=== PATIENT | male | born 1935 | race Caucasian/White ===

== ENCOUNTER 2016-03-24 17:35 | Emergency (ER) | payer MEDICARE, OTHER ==
[2016-03-24 18:42] VITALS: BMI 17.7
--- NOTE | 2016-03-24 19:42 | PDOC ---
History of Present Illness - General History Source: Patient <Yaniv Farley - Last Filed: 03/25/16 00:00> - General History Source: Patient, Spouse Exam Limitations: Language Barrier - History of Present Illness Initial Comments: 03/24/16 20:04 The patient is an 81 year old male with a significant past medical history asthma and enlarged prostate, who presents to the emergency department complaining of difficulty passing stool for one day. The patient reports no changes in appetite. The patient denies any associated abdominal pain, nausea, vomiting, diarrhea, melena, or hematochezia. The patient denies any chest pain, palpitations, diaphoresis, or shortness of breath. The patient reports no dysuria, hematuria, frequency, or urgency. The patient reports a nonproductive cough, but denies any headache, fever, chills, sore throat, or dizziness. The patient denies any recent travel or sick contacts. Allergies: Fish derived/ shellfish Past Surgical History: None reported. Social History: Non-smoker. Denies alcohol or drug use. PCP: Dr. Afia Ingram <Dewayne Herrera - Last Filed: 03/25/16 00:31> - General Chief Complaint: Pain, Acute Stated Complaint: PAIN Time Seen by Provider: 03/24/16 18:28 Past History - Past Medical History Asthma: Yes Suicide Attempt (Hx): No - Psycho/Social/Smoking Cessation Hx Anxiety: No Suicidal Ideation: No Smoking Status: No Smoking History: Never smoked Number of Cigarettes Smoked Daily: 0 Hx Alcohol Use: No Drug/Substance Use Hx: No <Yaniv Farley - Last Filed: 03/25/16 00:00> <Dewayne Herrera - Last Filed: 03/25/16 00:31> - Past Medical History Allergies/Adverse Reactions: Allergies Allergy/AdvReac Type Severity Reaction Status Date / Time fish derived [Fish derived] Allergy Verified 03/24/16 18:29 Shellfish Allergy Verified 03/24/16 18:29 Home Medications: Ambulatory Orders Cetirizine HCl [Zyrtec] 10 mg PO DAILY PRN #0 tablet 03/17/13 Oseltamivir Phosphate [Tamiflu] 75 mg PO BID #10 capsule 03/17/13 Tiotropium [place] [Spiriva -] 18 mcg IH BID 03/17/13 Polyethylene Glycol 3350 [Miralax (For Daily Use) -] 17 gm PO BID #1 bottle Review of Systems - Review of Systems Able to Perform ROS?: Yes Comments:: 03/24/16 20:06 CONSTITUTIONAL: Absent: fever, no chills, no fatigue EYES: Absent: visual changes ENT: Absent: ear pain, no sore throat CARDIOVASCULAR: Absent: chest pain, no palpitations RESPIRATORY: Present: +cough Absent: no SOB GI: Present: +constipation Absent: abdominal pain, no nausea, no vomiting, no diarrhea GENITOURINARY: Absent: dysuria, no frequency, no hematuria MUSKULOSKELETAL: Absent: back pain, no arthralgia, no myalgia SKIN: Absent: rash NEURO: Absent: headache <Dewayne Herrera - Last Filed: 03/25/16 00:31> *Physical Exam - Vital Signs Last Vital Signs Temp Pulse Resp BP Pulse Ox 97.8 F 88 16 99/48 98 03/24/16 18:30 03/24/16 18:30 03/24/16 18:30 03/24/16 18:30 03/24/16 18:30 <Yaniv Farley - Last Filed: 03/25/16 00:00> - Vital Signs Last Vital Signs Temp Pulse Resp BP Pulse Ox 97.8 F 88 16 99/48 98 03/24/16 18:30 03/24/16 18:30 03/24/16 18:30 03/24/16 18:30 03/24/16 18:30 - Physical Exam Comments: 03/24/16 20:09 GENERAL: Well-appearing, well-nourished. No apparent distress. HEENT: Normocephalic, atraumatic. PERRL, EOM intact. CARDIOVASCULAR: Normal S1, S2. Regular rate and rhythm. PULMONARY: Clear to auscultation bilaterally. ABDOMEN: Soft, non-distended, non-tender. EXTREMITIES: Normal ROM in all four extremities. No gross deformities. SKIN: Warm, dry. No rash NEUROLOGICAL: No focal neurological deficits. <Dewayne Herrera - Last Filed: 03/25/16 00:31> ED Treatment Course - LABORATORY CBC & Chemistry Diagram: 03/24/16 20:10 02/15/17 20:10 <Yaniv Farley - Last Filed: 03/25/16 00:00> - LABORATORY CBC & Chemistry Diagram: 03/24/16 20:10 03/24/16 20:10 - RADIOLOGY Radiograph Interpretation: 03/25/16 00:22 EXAM: CXR INTERPRETED BY: Dr. Hough REVIEWED BY: Dr. Farley IMPRESSION: Extensive chronic interstitial lung disease with no acute pathology or significant change. EXAM: Abdomen X-Ray INTERPRETED BY: Dr. Hough REVIEWED BY: Dr. Farley IMPRESSION: Fecal retention, no acute pathology. <Dewayne Herrera - Last Filed: 03/25/16 00:31> Medical Decision Making - Medical Decision Making 03/25/16 00:05 Dr. Farley: The scribe's documentation has been prepared under my direction and personally reviewed by me in its entirery. I confirm that the note above accurately reflects all work, treatment, procedures, and medical decision making performed by me. <Yaniv Farley - Last Filed: 03/25/16 00:00> *DC/Admit/Observation/Transfer - Discharge Dispostion Admit: No <Yaniv Farley - Last Filed: 03/25/16 00:00> - Attestations Scribe Attestion: 03/24/16 20:07 Documentation prepared by Dewayne Herrera, acting as medical information officer for Yaniv Farley DO. <Dewayne Herrera - Last Filed: 03/25/16 00:31> Diagnosis at time of Disposition: Constipation Qualifiers: Constipation type: unspecified constipation type Qualified Code(s): K59.00 - Constipation, unspecified - Discharge Dispostion Disposition: HOME Condition at time of disposition: Good - Prescriptions Prescriptions: Polyethylene Glycol 3350 [Miralax (For Daily Use) -] 17 gm PO BID #1 bottle - Referrals Referrals: Afia Piper MD [Primary Care Provider] - - Patient Instructions Printed Discharge Instructions: DI for Constipation, Increased Dietary Fiber May Improve Constipation Conditions With Pelvic Milo Print Language: UZBEK
[2016-03-24] MEDS ORDERED: SODIUM PHOSPHATE/NA BIPHOS 133 ML ENEMA PR ONE (19:49)
[2016-03-24] MEDS ORDERED: SODIUM CHLORIDE 1,000 ML IV SCH (20:15)
[2016-03-24 20:21] LABS: BASOPHIL 0.7 % (0-2.0); EOSINOPHIL 0.2 % (0-4.5); MCH 24.9 pg (25.7-33.7); MCHC 31.7 g/dl (32.0-35.9); MEAN CELL VOLUME 78.7 fl (80-96); MEAN PLT VOLUME 6.6 fl (7.5-11.1); NEUTROPHILS 86.9 % (42.8-82.8); PLATELET COUNT 469 K/MM3 (134-434); RDW 18.9 % (11.9-15.9); WHITE BLOOD COUNT 15.3 K/mm3 (4.0-10.0)
[2016-03-24 21:20] LABS: ALBUMIN 2.5 g/dl (3.4-5.0); ANION GAP 8 (8-16); BILIRUBIN,TOTAL 0.2 mg/dL (0.2-1.0); CALCIUM 8.5 mg/dL (8.5-10.1); CO2 27 mmol/L (21-32); CREATININE 0.9 mg/dL (0.7-1.3); GLUCOSE,RANDOM 101 mg/dL (74-106); SGOT/AST 14 U/L (15-37); SGPT/ALT 10 U/L (12-78); TOT PROT 9.2 g/dl (6.4-8.2)
[2016-03-24 21:21] LABS: ALK PHOS 145 U/L (45-117)
[2016-03-24 23:52] LABS: URINE APPEARANCE SLCLOUDY; URINE BILIRUBIN NEGATIVE (NEGATIVE); URINE BLOOD NEGATIVE (NEGATIVE); URINE COLOR YELLOW; URINE GLUCOSE (UA) NEGATIVE (NEGATIVE); URINE KETONE NEGATIVE (NEGATIVE); URINE LEUK ESTERASE NEGATIVE (NEGATIVE); URINE NITRITE NEGATIVE (NEGATIVE); URINE PROTEIN NEGATIVE (NEGATIVE); URINE UROBILINOGEN NEGATIVE E.U./dl (0.2-1.0)
[2016-03-24] MEDS ORDERED: LACTULOSE 20 GM/30 ML UDC (FOR ORAL USE ONLY) PO ONE (23:57)
[2016-03-25 00:13] VITALS: BP 94/41; PULSE 62; TEMP 98.2
[2016-03-25] MEDS ORDERED: LACTULOSE 20 GM/30 ML UDC (FOR ORAL USE ONLY) ONE (00:16)
[2016-03-25 12:33] LABS: TROPONIN I < 0.02 ng/ml (0.00-0.05)
== END 2016-03-25 00:18 | disposition home or self-care (01) ==
LOC: JER 17:35
PROC: 3E033NZ Introduction of Analgesics, Hypnotics, Sedatives into Peripheral Vein, Percutaneous Approach (ICD-10-PCS; principal; 2016-03-24)
PROC: 3E0333Z Introduction of Anti-inflammatory into Peripheral Vein, Percutaneous Approach (ICD-10-PCS; 2016-03-24)
DX: R07.89 Other chest pain (principal); F17.210 Nicotine dependence, cigarettes, uncomplicated
CPT/HCPCS: 36415; 71020-TC; 74020-TC; 80053; 81003; 82550; 83690; 84484; 85025; 86850; 86870; 86900; 86901; 99282-25

== ENCOUNTER 2016-04-28 19:19 | Emergency (ER) | payer MEDICARE, OTHER ==
[2016-04-28 20:02] VITALS: TEMP 98.4; BMI 15.0
--- NOTE | 2016-04-28 20:42 | PDOC ---
History of Present Illness - General History Source: Patient, Family Exam Limitations: No Limitations - History of Present Illness Initial Comments: 04/28/16 21:38 The patient is a 81 year old male presenting with family, with a significant past medical history of asthma and enlarged prostate, who presents to the emergency department with an inability to urinate and constipation. The daughter states that the patient was able to urinate a small amount yesterday. The daughter states that the patient is non compliant with his medications and has been refusing to eat much during the past few days as well. Ever since coming back from [place] last year the patient has been "depressed". The patient denies chest pain, shortness of breath, headache and dizziness. Denies fever, chills, nausea, vomit, diarrhea and constipation. Denies dysuria, frequency, urgency and hematuria. Allergies: Shellfish and penicillin Past surgical history: None reported Social history: No alcohol, tobacco or drug use reported PMD - Dr. Afia Piper <Yaniv Andrade - Last Filed: 04/28/16 21:38> <Jamari Giraldo - Last Filed: 04/29/16 01:18> - General Chief Complaint: Urinary Problem Stated Complaint: CONSTIPATION/UNABLE TO URINATE. Time Seen by Provider: 04/28/16 20:04 Past History <Yaniv Andrade - Last Filed: 04/28/16 21:38> - Past Medical History Asthma: Yes Suicide Attempt (Hx): No - Psycho/Social/Smoking Cessation Hx Anxiety: No Suicidal Ideation: No Smoking Status: No Smoking History: Never smoked Have you smoked in the past 12 months: No Number of Cigarettes Smoked Daily: 0 Information on smoking cessation initiated: No Hx Alcohol Use: No Drug/Substance Use Hx: No Substance Use Type: None <Jamari Giraldo - Last Filed: 04/29/16 01:18> - Past Medical History Allergies/Adverse Reactions: Allergies Allergy/AdvReac Type Severity Reaction Status Date / Time fish derived [Fish derived] Allergy Verified 04/28/16 20:02 Shellfish Allergy Verified 04/28/16 20:02 Home Medications: Ambulatory Orders Tiotropium [place] [Spiriva -] 18 mcg IH BID 03/17/13 Review of Systems - Review of Systems Able to Perform ROS?: Yes Comments:: 04/28/16 21:39 GENERAL/CONSTITUTIONAL: No fever or chills. No weakness. HEAD, EYES, EARS, NOSE AND THROAT: No change in vision. No ear pain or discharge. No sore throat. CARDIOVASCULAR: No chest pain or shortness of breath RESPIRATORY: No cough, wheezing, or hemoptysis. GASTROINTESTINAL: +Constipation. No nausea, vomiting, diarrhea GENITOURINARY: +Inability to urinate. No dysuria, frequency MUSCULOSKELETAL: No joint or muscle swelling or pain. No neck or back pain. SKIN: No rash NEUROLOGIC: No headache, vertigo, loss of consciousness, or change in strength/ sensation. ENDOCRINE: No increased thirst. No abnormal weight change HEMATOLOGIC/LYMPHATIC: No anemia, easy bleeding, or history of blood clots. ALLERGIC/IMMUNOLOGIC: No hives or skin allergy. <Yaniv Andrade - Last Filed: 04/28/16 21:38> *Physical Exam - Vital Signs Last Vital Signs Temp Pulse Resp BP Pulse Ox 98.4 F 60 18 113/64 100 04/28/16 19:58 04/28/16 19:58 04/28/16 19:58 04/28/16 19:58 04/28/16 19:58 - Physical Exam Comments: 04/28/16 21:39 GENERAL: Awake, alert, and fully oriented, in no acute distress. +Thin appearing. HEAD: No signs of trauma, normocephalic, atraumatic EYES: PERRLA, EOMI, sclera anicteric, conjunctiva clear ENT: Auricles normal inspection, hearing grossly normal, nares patent, oropharynx clear without exudates. Moist mucosa NECK: Normal ROM, supple, no lymphadenopathy, JVD, or masses LUNGS: No distress, speaks full sentences, clear to auscultation bilaterally HEART: Regular rate and rhythm, normal S1 and S2, no murmurs, rubs or gallops, peripheral pulses normal and equal bilaterally. ABDOMEN: Soft, nontender, normoactive bowel sounds. No guarding, no rebound. No masses EXTREMITIES: Normal inspection, Normal range of motion, no edema. No clubbing or cyanosis. NEUROLOGICAL: Cranial nerves II through XII grossly intact. Normal speech, normal gait, no focal sensorimotor deficits SKIN: Warm, Dry, normal turgor, no rashes or lesions noted. <Yaniv Andrade - Last Filed: 04/28/16 21:38> - Vital Signs Last Vital Signs Temp Pulse Resp BP Pulse Ox 98.4 F 60 18 113/64 100 04/28/16 19:58 04/28/16 19:58 04/28/16 19:58 04/28/16 19:58 04/28/16 19:58 <Jamari Giraldo - Last Filed: 04/29/16 01:18> ED Treatment Course - LABORATORY CBC & Chemistry Diagram: 04/28/16 21:08 04/28/16 21:08 - ADDITIONAL ORDERS Additional order review: Laboratory Results 04/28/16 20:34 Urine Color Ltyellow Urine Appearance Clear Urine pH 5.0 Ur Specific [place] 1.014 Urine Protein Negative Urine Glucose (UA) Negative Urine Ketones Negative Urine Blood 1+ H Urine Nitrite Negative Urine Bilirubin Negative Urine Urobilinogen Negative Ur Leukocyte Esterase Negative 04/28/16 21:08 RBC 3.21 L MCV 79.0 L MCHC 32.9 RDW 18.6 H MPV 6.7 L Neutrophils % Y Lymphocytes % Y <Yaniv Andrade - Last Filed: 04/28/16 21:38> - LABORATORY CBC & Chemistry Diagram: 04/28/16 21:08 04/28/16 21:08 <Jamari Giraldo - Last Filed: 04/29/16 01:18> Medical Decision Making - Medical Decision Making 04/29/16 01:17 Patient is a frail-appearing 81-year-old male who presents with acute urinary retention and constipation. In the ER, patient is awake and alert, afebrile, cachectic, with stable vital signs. After placement of Che catheter proximally 500 mL of clear urine was obtained. Abdominal flat x-ray reveals stool throughout the colon. CBC reveals persistent leukocytosis which appears unchanged when compared to previous. It also reveals persistent anemia. Urinalysis reveals no evidence of pyuria. Patient at this time tolerates by mouth. There is no indication for immediate act cell transfusion at this time. Patient will be discharged with follow-up with primary care physician and urology. <Jamari Giraldo - Last Filed: 04/29/16 01:18> *DC/Admit/Observation/Transfer - Attestations Scribe Attestion: 04/28/16 21:39 Documentation prepared by Yaniv Andrade, acting as electromedical equipment technician for Jamari Giraldo MD <Yaniv Andrade - Last Filed: 04/28/16 21:38> - Attestations Physician Attestion: 04/29/16 01:16 The documentation was prepared by the scribe under my direct supervision. I have reviewed the documentation which correctly represents the findings, medical decision-making and critical action taken by me. <Jamari Giraldo - Last Filed: 04/29/16 01:18> Diagnosis at time of Disposition: Acute urinary retention Constipation Qualifiers: Constipation type: unspecified constipation type Qualified Code(s): K59.00 - Constipation, unspecified Anemia Qualifiers: Anemia type: unspecified type Qualified Code(s): D64.9 - Anemia, unspecified - Discharge Dispostion Disposition: HOME Condition at time of disposition: Stable - Referrals Referrals: Afia Piper MD [Primary Care Provider] - Dwain Matt MD [Staff Physician] - - Patient Instructions Printed Discharge Instructions: DI for Urinary Retention in Men, Anemia, DI for Constipation Print Language: KYRGYZ
[2016-04-28] MEDS ORDERED: SODIUM CHLORIDE 500 ML IV STA ×2 (20:51→23:59)
[2016-04-28 21:02] LABS: URINE APPEARANCE CLEAR; URINE BILIRUBIN NEGATIVE (NEGATIVE); URINE COLOR LTYELLOW; URINE GLUCOSE (UA) NEGATIVE (NEGATIVE); URINE KETONE NEGATIVE (NEGATIVE); URINE LEUK ESTERASE NEGATIVE (NEGATIVE); URINE NITRITE NEGATIVE (NEGATIVE); URINE PROTEIN NEGATIVE (NEGATIVE); URINE UROBILINOGEN NEGATIVE E.U./dl (0.2-1.0)
[2016-04-28 21:06] LABS: URINE BLOOD 1+ (NEGATIVE)
[2016-04-28 21:34] LABS: MCHC 32.9 g/dl (32.0-35.9); MEAN PLT VOLUME 6.7 fl (7.5-11.1); PLATELET COUNT 430 K/MM3 (134-434); RDW 18.6 % (11.9-15.9); WHITE BLOOD COUNT 15.6 K/mm3 (4.0-10.0)
[2016-04-28 22:09] LABS: ALBUMIN 2.4 g/dl (3.4-5.0); ANION GAP 9 (8-16); CALCIUM 8.4 mg/dL (8.5-10.1); CO2 27 mmol/L (21-32); CREATININE 0.9 mg/dL (0.7-1.3); GLUCOSE,RANDOM 99 mg/dL (74-106); SGOT/AST 18 U/L (15-37); SGPT/ALT 9 U/L (12-78)
[2016-04-28 22:10] LABS: URINE MUCUS RARE; URINE RBC 4 /hpf (0-3); URINE WBC 1 /hpf (3-5)
[2016-04-28 22:11] LABS: ALK PHOS 115 U/L (45-117); BILIRUBIN,TOTAL 0.3 mg/dL (0.2-1.0); TOT PROT 8.5 g/dl (6.4-8.2)
[2016-04-28 22:39] LABS: PLATELET ESTIMATE ADEQUATE (NORMAL)
[2016-04-29 00:52] VITALS: BP 116/66; PULSE 63
== END 2016-04-29 02:03 | disposition home or self-care (01) ==
LOC: JER 19:19 → SUPCPDRO 19:19 → JER 04-29 02:03
PROC: 0T9B70Z Drainage of Bladder with Drainage Device, Via Natural or Artificial Opening (ICD-10-PCS; principal; 2016-04-28)
PROC: 3E0337Z Introduction of Electrolytic and Water Balance Substance into Peripheral Vein, Percutaneous Approach (ICD-10-PCS; 2016-04-28)
DX: K59.00 Constipation, unspecified (principal); D64.9 Anemia, unspecified; J45.909 Unspecified asthma, uncomplicated; N40.0 Benign prostatic hyperplasia without lower urinary tract symptoms
CPT/HCPCS: 36415; 74000-TC; 80053; 81003; 81015; 85025; 87086; 99283-25

== ENCOUNTER 2017-07-31 16:34 | Emergency (ER) | payer MEDICARE, OTHER ==
[2017-07-31 16:46] VITALS: TEMP 98.3; BMI 15.6
--- NOTE | 2017-07-31 18:31 | PDOC ---
History of Present Illness - General Chief Complaint: Respiratory Stated Complaint: COUGH/ASTHMA - History of Present Illness Initial Comments: 07/31/17 18:52 82 M with h/o asthma, BPH, presents to ED with rhinorrhea and cough. Pt states that these symptoms are chronic for him. He typically uses his Bevespi inhaler to treat his symptoms. HOwever, he ran out 2 days ago. Pt denies any CP/SOB. Denies F/C. Denies productive cough. Denies any other symptoms. Past History - Past Medical History Allergies/Adverse Reactions: Allergies Allergy/AdvReac Type Severity Reaction Status Date / Time fish derived [Fish derived] Allergy Verified 07/31/17 16:41 Shellfish Allergy Verified 07/31/17 16:41 Home Medications: Ambulatory Orders Tiotropium [place] [Spiriva -] 18 mcg IH BID 03/17/13 Glycopyrrolate/Formoterol Fum [Bevespi Aerosphere Inhaler] 5.9 gm IH DAILY #1 [email or web address] 07/31/17 Asthma: Yes - Suicide/Smoking/Psychosocial Hx Smoking Status: No Smoking History: Never smoked Have you smoked in the past 12 months: No Number of Cigarettes Smoked Daily: 0 Hx Alcohol Use: No Drug/Substance Use Hx: No Substance Use Type: None Review of Systems - Review of Systems Comments:: 07/31/17 18:56 "GENERAL/CONSTITUTIONAL: No fever or chills. No weakness. HEAD, EYES, EARS, NOSE AND THROAT: No change in vision. No ear pain or discharge. No sore throat. CARDIOVASCULAR: No chest pain or shortness of breath. RESPIRATORY: + cough, no wheezing, or hemoptysis. GASTROINTESTINAL: No nausea, vomiting, diarrhea or constipation. GENITOURINARY: No dysuria, frequency, or change in urination. MUSCULOSKELETAL: No joint or muscle swelling or pain. No neck or back pain. SKIN: No rash NEUROLOGIC: No headache, vertigo, loss of consciousness, or change in strength/ sensation. ENDOCRINE: No increased thirst. No abnormal weight change. HEMATOLOGIC/LYMPHATIC: No anemia, easy bleeding, or history of blood clots. ALLERGIC/IMMUNOLOGIC: No hives or skin allergy. " *Physical Exam - Vital Signs Last Vital Signs Temp Pulse Resp BP Pulse Ox 98.3 F 95 H 16 98/55 95 07/31/17 16:42 07/31/17 16:42 07/31/17 16:42 07/31/17 16:42 07/31/17 16:42 - Physical Exam Comments: 07/31/17 18:57 "GENERAL: Awake, alert, and fully oriented, in no acute distress. HEAD: No signs of trauma EYES: PERRLA, EOMI, sclera anicteric, conjunctiva clear ENT: Auricles normal inspection, hearing grossly normal, nares patent, oropharynx clear without exudates. Moist mucosa NECK: Nontender, no stepoffs, Normal ROM, supple, no lymphadenopathy, JVD, or masses LUNGS: Breath sounds equal, clear to auscultation bilaterally. No wheezes, and no crackles HEART: Regular rate and rhythm, normal S1 and S2, no murmurs, rubs or gallops ABDOMEN: Soft, nontender, normoactive bowel sounds. No guarding, no rebound. No masses EXTREMITIES: Normal range of motion, no edema. No clubbing or cyanosis. No cords, erythema, or tenderness NEUROLOGICAL: Cranial nerves II through XII intact. 5/5 strength and sensation in all extremities, Normal speech, normal gait, normal cerebellar function SKIN: Warm, Dry, normal turgor, no rashes or lesions noted. " Medical Decision Making - Medical Decision Making 07/31/17 18:57 82 M with chronic cough and rhinorrhea. Pt with no acute complaints today other than that he ran out of his bevespi pump. - CXR - med refill I offered pt bloodwork for cardiac evaluation, but pt refuses, stating that he has no new symptoms. Pt with benign exam. I have low suspicion that pt is having a medical emergency. *DC/Admit/Observation/Transfer Diagnosis at time of Disposition: Cough - Discharge Dispostion Disposition: HOME Condition at time of disposition: Stable - Prescriptions Prescriptions: Glycopyrrolate/Formoterol Fum [Bevespi Aerosphere Inhaler] 5.9 gm IH DAILY #1 [email or web address] - Referrals Referrals: Afia Piper MD [Primary Care Provider] - - Patient Instructions Printed Discharge Instructions: DI for Cough -- Adult Additional Instructions: Follow up with your primary doctor in 1-2 days. Take your inhaler as prescribed. Return to the emergency department if you have any new, worsening, or concerning symptoms. Print Language: ESTONIAN - Post Discharge Activity - Attestations Physician Attestion: 08/03/17 18:05 I, Dr. Johnathan Bustillo MD, attest that this document has been prepared under my direction and personally reviewed by me in its entirety. I further attest, that it accurately reflects all work, treatment, procedures and medical decision -making performed by me.
[2017-07-31 22:48] VITALS: BP 100/55
--- NOTE | 2017-07-31 23:14 | PDOC ---
*Physical Exam - Vital Signs Last Vital Signs Temp Pulse Resp BP Pulse Ox 98.3 F 102 H 18 100/55 92 L 07/31/17 16:42 07/31/17 20:32 07/31/17 22:48 07/31/17 22:48 07/31/17 20:32 Medical Decision Making - Medical Decision Making 07/31/17 23:14 Care received at 1900 Briefly, pt has hx asthma/COPD and is on chronic glycopyrrolate/formoterol inhaler which he ran out of. Pt came in for cough consistent with his chronic sxs. Pt pending CXR Due to system wide downtime, CXR was done but we were unable to view image initially Once image was viewable in CXR suite, pt was noted to have changes that appeared to be consistent with lung disease, however we had no access to previous XR to compare. Radiologist Dr. Cruz was called in to review images and upon review, noted changes seen by me on CXR were likely chronic in nature with no evidence of new infiltrate, effusions, etc Pt currently feels at baseline. 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 Pt's daughter states he is at his baseline. Does not appear to be in any respiratory distress at this time, lungs with no focal crackles or diminished BS , wheezes Pt requests DC home. I discussed the physical exam findings, ancillary test results and final diagnoses with the patient. I answered all of the patient's questions. The patient was satisfied with the care received and felt comfortable with the discharge plan and treatment plan. The patient will call their primary care physician within 24 hours to arrange follow-up and will return to the Emergency Department with any new, persistent or worsening symptoms. *DC/Admit/Observation/Transfer Diagnosis at time of Disposition: Cough - Discharge Dispostion Disposition: HOME Condition at time of disposition: Stable Decision to Admit order: No - Prescriptions Prescriptions: Glycopyrrolate/Formoterol Fum [Bevespi Aerosphere Inhaler] 5.9 gm IH DAILY #1 [email or web address] - Referrals Referrals: Afia Piper MD [Primary Care Provider] - - Patient Instructions Printed Discharge Instructions: DI for Cough -- Adult Additional Instructions: Follow up with your primary doctor in 1-2 days. Take your inhaler as prescribed. Return to the emergency department if you have any new, worsening, or concerning symptoms. Print Language: BURUNDIAN - Post Discharge Activity - Attestations Physician Attestion: 07/31/17 23:28 I, Dr. Randy Corbin MD, attest that this document has been prepared under my direction and personally reviewed by me in its entirety. I further attest, that it accurately reflects all work, treatment, procedures and medical decision -making performed by me.
[2017-07-31 23:30] VITALS: PULSE 91
== END 2017-07-31 23:34 | disposition home or self-care (01) ==
LOC: JER 16:34
DX: J45.909 Unspecified asthma, uncomplicated (principal); J44.9 Chronic obstructive pulmonary disease, unspecified
CPT/HCPCS: 71046-TC-FY; 99281-25

== ENCOUNTER 2018-01-20 00:19 | Inpatient (IN) | payer MEDICARE, OTHER ==
--- NOTE | 2018-01-20 01:08 | PDOC ---
History of Present Illness - General Chief Complaint: Weakness Stated Complaint: WEAKNESS,NO BOWEL MOVEMENT Time Seen by Provider: 01/20/18 00:41 History Source: Patient, Family (daughter) Exam Limitations: Language Barrier - History of Present Illness Initial Comments: 01/20/18 00:58 Pt is an 82yo M with PMH of Asthma, COPD, Anemia, BPH BIBA for weakness after trying to have a bowel movement. Pt has not had a bowel movement for 8 days. He could not get up off the toilet after attempting today. Pt states he feels weak. He endorses abdominal pain when trying to have a bowel movement. He states that he has been having coughs productive of white phlegm for "many days ". He denies nausea, vomiting, urinary symptoms, fevers, chills, numbness/ tingling, back pain, chest pain, SOB, headaches, changes in vision. He has not had abdominal surgeries in the past. PMD: Fan Uro: [place] PMH: see hpi PSH: none Allergies: nkda Meds: iron, tamsulosin, albuterol inhaler 01/20/18 06:19 Pamela (daughter)- Past History - Past Medical History Allergies/Adverse Reactions: Allergies Allergy/AdvReac Type Severity Reaction Status Date / Time fish derived [Fish derived] Allergy Verified 07/31/17 16:41 Shellfish Allergy Verified 07/31/17 16:41 Home Medications: Ambulatory Orders Tiotropium [place] [Spiriva -] 18 mcg IH BID 03/17/13 Glycopyrrolate/Formoterol Fum [Bevespi Aerosphere Inhaler] 5.9 gm IH DAILY #1 [email or web address] 07/31/17 Asthma: Yes - Suicide/Smoking/Psychosocial Hx Smoking Status: No Smoking History: Never smoked Have you smoked in the past 12 months: No Number of Cigarettes Smoked Daily: 0 Hx Alcohol Use: No Drug/Substance Use Hx: No Substance Use Type: None Review of Systems - Review of Systems Constitutional: Yes: Weakness. No: Chills, Fever HEENTM: No: Recent change in vision, Ear Pain, Throat Pain Respiratory: Yes: See HPI, Cough. No: Shortness of Breath Cardiac (ROS): No: Chest Pain, Lightheadedness, Palpitations, Syncope, Chest Tightness ABD/GI: Yes: See HPI, Constipated, Abdominal cramping (with bowel movements). No: Nausea, Vomiting : No: Burning, Dysuria, Frequency, Flank Pain Musculoskeletal: Yes: See HPI. No: Back Pain, Muscle Pain, Muscle Weakness, Neck Pain Integumentary: No: Symptoms Reported Neurological: No: Headache, Numbness, Tingling *Physical Exam - Physical Exam General Appearance: Yes: Appropriately Dressed, Cachetic. No: Apparent Distress HEENT: positive: EOMI, MELODY, Pharynx Normal, Pale Conjunctivae, Other (moist mucosal membranes) Neck: positive: Trachea midline, Supple. negative: Carotid bruit, Lymphadenopathy (R), Lymphadenopathy (L) Respiratory/Chest: positive: Lungs Clear, Normal Breath Sounds. negative: Paradoxal Breathing, Rales, Rhonchi, Stridor, Wheezing, Hyperresonant Cardiovascular: positive: Regular Rhythm, Regular Rate, S1, S2. negative: Edema , JVD, Murmur Vascular Pulses: Carotid (R): 2+, Carotid (L): 2+, Dorsalis-Pedis (R): 2+, Doralis-Pedis (L): 2+ Gastrointestinal/Abdominal: positive: Normal Bowel Sounds, Flat, Soft. negative : Protuberent, Distended, Guarding, Rebound, Tenderness, Mass, Hepatomegaly, Spleenomegaly Musculoskeletal: negative: CVA Tenderness, Vertebral Tenderness Integumentary: positive: Normal Color, Dry, Warm Neurologic: positive: surgical elastic knitter II-XII NML intact, Fully Oriented, Alert, Normal Mood/ Affect, Normal Response, Motor Strength 06/11 ED Treatment Course - LABORATORY CBC & Chemistry Diagram: 01/20/18 02:13 01/20/18 02:13 Medical Decision Making - Medical Decision Making 01/20/18 01:08 Pt is an 82yo M with PMH of Asthma, COPD, Anemia, BPH BIBA for weakness after trying to have a bowel movement. Pt has not had a bowel movement for 8 days. He could not get up off the toilet after attempting today. Pt states he feels weak. He endorses abdominal pain when trying to have a bowel movement. He states that he has been having coughs productive of white phlegm for "many days ". He denies nausea, vomiting, urinary symptoms, fevers, chills, numbness/ tingling, back pain, chest pain, SOB, headaches, changes in vision. He has not had abdominal surgeries in the past. 01/20/18 05:44 EKG NSR *DC/Admit/Observation/Transfer - Referrals Referrals: Alec Chavira MD [Primary Care Provider] - - Patient Instructions - Post Discharge Activity
[2018-01-20] MEDS ORDERED: SODIUM CHLORIDE 500 ML IV STA (01:15)
[2018-01-20] MEDS ORDERED: SENNOSIDES/DOCUSATE COMBO (SENNA PLUS) TABLET (UD) PO ONE (02:32)
[2018-01-20 02:49] LABS: BASO % 0.5 % (0-2.0); HEMATOCRIT 25.4 % (35.4-49); HEMOGLOBIN 8.6 GM/dL (11.7-16.9); LYMPH % 3.8 % (8-40); MCH 27.8 pg (25.7-33.7); MCHC 33.9 g/dl (32.0-35.9); MEAN CELL VOLUME 82.1 fl (80-96); MEAN PLT VOLUME 7.6 fl (7.5-11.1); MONO % 4.1 % (3.8-10.2); NEUT % 91.6 % (42.8-82.8); PLATELET COUNT 433 K/MM3 (134-434); RBC 3.09 M/mm3 (4.00-5.60); RDW 16.8 % (11.9-15.9); WHITE BLOOD COUNT 15.2 K/mm3 (4.0-10.0)
[2018-01-20 03:15] LABS: ALBUMIN 2.2 g/dl (3.4-5.0); ALK PHOS 127 U/L (45-117); ANION GAP 7 MMOL/L (8-16); BILIRUBIN,TOTAL 0.3 mg/dL (0.2-1); BLOOD UREA NITROGEN 22 mg/dL (7-18); CALCIUM 8.4 mg/dL (8.5-10.1); CHLORIDE 96 mmol/L (98-107); CO2 30 mmol/L (21-32); CREATININE 0.9 mg/dL (0.55-1.3); GLUCOSE,RANDOM 92 mg/dL (74-106); POTASSIUM 3.8 mmol/L (3.5-5.1); SGOT/AST 33 U/L (15-37); SGPT/ALT 13 U/L (13-61); SODIUM 133 mmol/L (136-145); TOT PROT 8.3 g/dl (6.4-8.2)
--- NOTE | 2018-01-20 04:11 | HP ---
CHIEF COMPLAINT: Generalized Weakness, Constipation PCP: Dr. Alec Chavira HISTORY OF PRESENT ILLNESS: This is a 82 y/o man with a PMHx of Asthma, COPD, Anemia, BPH. Who presents to the ED with generalized weakness and constipation. Patient has been constipated for 8 days. Patient became weak unable to stand after trying to have a BM. Patient reports having abdominal pain, when trying to have a BM. Patient reports having a productive cough with white phlegm for several days. Patient denies fever, chills, dizziness, STEWART, SOB, CP, palpitations, N/V, diarrhea, dysuria. Patient was unable to provide full HPI due to his clinical condition. Obtained history from ED records. ER course was notable for: (1) Abdominal Xray- air and stool distention in colon, no sign of fecal impaction, there is no sign of free air (2) Chest Xray- chronic interstitial, nodular, and superimposed alveolar changes (3) WBC 15.2 Recent Travel: None PAST MEDICAL HISTORY: See HPI PAST SURGICAL HISTORY: Social History: Smoking: Never Alcohol: None Drugs: None Lives with elderly Family History: unable to obtain Allergies fish derived [Fish derived] Allergy (Verified 07/31/17 16:41) Shellfish Allergy (Verified 07/31/17 16:41) HOME MEDICATIONS: Home Medications Medication Instructions Recorded Tiotropium [place] [Spiriva -] 18 mcg IH BID 03/17/13 Glycopyrrolate/Formoterol Fum 5.9 gm IH DAILY #1 hfa.aer.ad 07/31/17 [Bevespi Aerosphere Inhaler] REVIEW OF SYSTEMS CONSTITUTIONAL: generalized weakness, malaise, Absent: fever, chills, diaphoresis, loss of appetite, weight change HEENT: Absent: rhinorrhea, nasal congestion, throat pain, throat swelling, difficulty swallowing, mouth swelling, ear pain, eye pain, visual changes CARDIOVASCULAR: Absent: chest pain, syncope, palpitations, irregular heart rate, lightheadedness , peripheral edema RESPIRATORY: Absent: cough, shortness of breath, dyspnea with exertion, orthopnea, wheezing, stridor, hemoptysis GASTROINTESTINAL: constipation Absent: abdominal pain, abdominal distension, nausea, vomiting, diarrhea, melena , hematochezia GENITOURINARY: Absent: dysuria, frequency, urgency, hesitancy, hematuria, flank pain, genital pain MUSCULOSKELETAL: Absent: myalgia, arthralgia, joint swelling, back pain, neck pain SKIN: Absent: rash, itching, pallor HEMATOLOGIC/IMMUNOLOGIC: Absent: easy bleeding, easy bruising, lymphadenopathy, frequent infections ENDOCRINE: Absent: unexplained weight gain, unexplained weight loss, heat intolerance, cold intolerance NEUROLOGIC: Absent: headache, focal weakness or paresthesias, dizziness, unsteady gait, seizure, mental status changes, bladder or bowel incontinence PSYCHIATRIC: Absent: anxiety, depression, suicidal or homicidal ideation, hallucinations. PHYSICAL EXAMINATION Vital Signs - 24 hr 01/20/18 00:28 Temperature 97.8 F Pulse Rate 92 H Respiratory 17 Rate Blood Pressure 90/58 L O2 Sat by Pulse 100 Oximetry (%) GENERAL: Cachectic, awake, alert, and fully oriented, in no acute distress. HEAD: Normal with no signs of trauma. EYES: Pupils equal, round and reactive to light, extraocular movements intact, sclera anicteric, conjunctiva clear. No lid lag. EARS, NOSE, THROAT: Dry mucous membranes. Ears normal, nares patent, oropharynx clear without exudates. NECK: Normal range of motion, supple without lymphadenopathy, JVD, or masses. LUNGS: Breath sounds equal, clear to auscultation bilaterally. No wheezes, and no crackles. No accessory muscle use. HEART: Regular rate and rhythm, normal S1 and S2 without murmur, rub or gallop. ABDOMEN: hypoactive bowel sounds. Soft, nontender, not distended, no guarding, no rebound, no masses. No hepatomegaly or splenomegaly. MUSCULOSKELETAL: Normal range of motion at all joints. No bony deformities or tenderness. No CVA tenderness. UPPER EXTREMITIES: 2+ pulses, warm, well-perfused. No cyanosis. No clubbing. No peripheral edema. LOWER EXTREMITIES: 2+ pulses, warm, well-perfused. No calf tenderness. No peripheral edema. NEUROLOGICAL: Cranial nerves II-XII intact. Normal speech. Gait not observed. PSYCHIATRIC: Cooperative. Good eye contact. Appropriate mood and affect. SKIN: Warm, dry, normal turgor, no rashes or lesions noted, normal capillary refill. Laboratory Results - last 24 hr 01/20/18 01/20/18 01/20/18 02:13 02:13 02:13 WBC 15.2 H RBC 3.09 L Hgb 8.6 L Hct 25.4 L MCV 82.1 MCH 27.8 MCHC 33.9 RDW 16.8 H Plt Count 433 MPV 7.6 D Absolute Neuts (auto) 13.9 H Neutrophils % 91.6 H Lymphocytes % 3.8 L D Monocytes % 4.1 Eosinophils % 0.0 D Basophils % 0.5 Nucleated RBC % 0 Sodium 133 L Potassium 3.8 Chloride 96 L Carbon Dioxide 30 Anion Gap 7 L BUN 22 H Creatinine 0.9 Creat Clearance w eGFR > 60 Random Glucose 92 Calcium 8.4 L Total Bilirubin 0.3 AST 33 ALT 13 Alkaline Phosphatase 127 H Troponin I 0.02 Total Protein 8.3 H Albumin 2.2 L Imaging studies: Abdominal Xray- air and stool distention of colon. There is no sign of fecal impaction. There is no sign of free air. Chest xray- There appears to be chronic interstitial, nodular and superimposed alveolar changes ASSESSMENT/PLAN: This is a 82 y/o man with a PMHx of: Asthma, COPD, Anemia, BPH. Placed in Observation for Generalized Malaise, Abdominal Pain likely secondary to Constipation for further evaluation of their emergent condition. Plan: FEN: D51/2NS@42ml/hr Replete lytes prn High Fiber Diet as tolerated DVT ppx OOB SCDs Consider AC if LOS > 48 hrs Dispo: Observation Problem List - Problem (1) Weakness generalized Assessment/Plan: Likely secondary to dehydration vs ?PCM IVF Monitor BMP RD consult Will need PT, STR vs SNF Appreciate Farm Machinery Set Up Mechanic consult Monitor vitals Fall Precautions Code(s): R53.1 - WEAKNESS (2) Constipation Assessment/Plan: Abdominal Xray- reviewed Increase fiber intake Consider laxative Consider GI consult Monitor BMP Monitor vitals Code(s): K59.00 - CONSTIPATION, UNSPECIFIED (3) Anemia Assessment/Plan: stable Hgb 8.6 at baseline Will transfuse if LOS < 7.0 Monitor CBC Code(s): D64.9 - ANEMIA, UNSPECIFIED (4) Asthma Assessment/Plan: stable no acute flare Continue Albuterol Continue KARINA or LABA Code(s): J45.909 - UNSPECIFIED ASTHMA, UNCOMPLICATED (5) COPD (chronic obstructive pulmonary disease) Assessment/Plan: stable continue home med Code(s): J44.9 - CHRONIC OBSTRUCTIVE PULMONARY DISEASE, UNSPECIFIED (6) Cachexia Assessment/Plan: Likely secondary to COPD RD consult Encourage small frequent meals Weigh Albumin 2.2 Code(s): R64 - CACHEXIA (7) BPH (benign prostatic hyperplasia) Assessment/Plan: f/u with Urology in outpatient as needed No home med listed Code(s): N40.0 - BENIGN PROSTATIC HYPERPLASIA WITHOUT LOWER URINRY TRACT SYMP Visit type - Emergency Visit Emergency Visit: Yes Care time: The patient presented to the Emergency Department on the above date and was hospitalized for further evaluation of their emergent condition. - New Patient This patient is new to me today: Yes Date on this admission: 01/20/18 - Critical Care Critical Care patient: No
--- NOTE | 2018-01-20 04:37 | PDOC ---
Attending Attestation - Resident Resident Name: BeccaRiya - ED Attending Attestation I have performed the following: I have examined & evaluated the patient, The case was reviewed & discussed with the resident, I agree w/resident's findings & plan, Exceptions are as noted - HPI HPI: 01/20/18 04:33 82yoM presents for episode of inabiliyt to walk at home today in setting of sitting on the toilet x hours and his legs going numb. Family give history of a few months of significant functional decline, pt is no longer able to leave the house due to walking difficulies, was very thin originally and is now loosing weight, has had multiple falls during this time with very little help at home, lives with his elderly . Over past few days pt has also been complaining of constipation. - Physicial Exam PE: 01/20/18 04:36 NAD, cachectic Mm dry RRR CTABL soft NTND, no palpable masses no edema able to ambulate to bathroom with hand-holding assistance in ED A&O x 2 - Medical Decision Making 01/20/18 04:36 82yoM w/ significant functional decline over past few months, does not have home services, family unable to appropriately care for him. - labs - ekg - ua - admit for initiation of home services, PT evaluation, possible placement.
[2018-01-20 06:36] LABS: ANISOCYTOSIS 1+; MACROCYTOSIS 1+; PLATELET ESTIMATE NORMAL
[2018-01-20] MEDS ORDERED: ALBUTEROL SO4 0.083% IH SOL 2.5 MG/3 ML VIAL.NEB. NEB PRN (10:00)
[2018-01-20] MEDS ORDERED: PATIENT'S OWN MEDICATION (NON-FORMULARY) (Glycopyrrolate/Formoterol Fum [Bevespi Aerospher IH SCH (10:00)
[2018-01-20] MEDS ORDERED: DEXTROSE 5%-0.45% SALINE 1,000 ML IV SCH (10:00)
--- NOTE | 2018-01-20 10:15 | EKG ---
Test Reason : Blood Pressure : / mmHG Vent. Rate : 083 BPM Atrial Rate : 083 BPM P-R Int : 156 ms QRS Dur : 076 ms QT Int : 356 ms P-R-T Axes : 045 008 043 degrees QTc Int : 418 ms POOR DATA QUALITY, INTERPRETATION MAY BE ADVERSELY AFFECTED NORMAL SINUS RHYTHM NORMAL ECG WHEN COMPARED WITH ECG OF 14-MAR-2011 01:05, NO SIGNIFICANT CHANGE WAS FOUND Confirmed by KEVIN LEZAMA, PROSPER ([id number]) on 01/20/2018 10:15:07 AM Referred By: Confirmed By:PROSPER BROWN MD
--- NOTE | 2018-01-20 13:10 | PN ---
Progress Note, Physician History of Present Illness: pt seen/ examined chart reviewed awake/comfortable cachectic chronic ill appearance son at bedside pt denies pain. wants to eat afebrile No fever/ chills cxr reviewed bp on low side - Current Medication List Current Medications: Active Medications Albuterol Sulfate (Ventolin 0.083% Nebulizer Soln -) 1 amp NEB Q6H PRN PRN Reason: SHORT OF BREATH/WHEEZING Potassium Chloride/Dextrose/Sod Cl (D5-1/2ns+20 Meq Kcl -) 20 meq in 1,000 mls @ 100 mls/hr IV ASDIR [facility] Influenza Virus Vaccine Quadrival (Flulaval Quad [id number]) 60 mcg IM .ONCE ONE Stop: 01/20/18 13:01 Non-Formulary Medication (Glycopyrrolate/Formoterol Fum [Bevespi Aerosphere Inhaler]) 5.9 gm IH DAILY [facility] Tamsulosin HCl (Flomax -) 0.4 mg PO DAILY@0830 [facility] Tiotropium [place] (Spiriva Respimat) 2 puff IH DAILY [facility] - Objective Vital Signs: Vital Signs Temperature 97.4 F L 01/20/18 12:41 Pulse Rate 76 01/20/18 12:41 Respiratory Rate 18 01/20/18 12:41 Blood Pressure 93/50 L 01/20/18 12:41 O2 Sat by Pulse Oximetry (%) 98 01/20/18 11:39 Constitutional: Yes: No Distress, Cachectic Eyes: Yes: Conjunctiva Clear Neck: Yes: Supple Cardiovascular: Yes: Regular Rate and Rhythm Respiratory: Yes: Diminished Gastrointestinal: Yes: Soft Edema: No Neurological: Yes: Alert Labs: CBC, BMP 01/20/18 02:13 01/20/18 02:13 Problem List - Problems (1) BPH (benign prostatic hyperplasia) Code(s): N40.0 - BENIGN PROSTATIC HYPERPLASIA WITHOUT LOWER URINRY TRACT SYMP (2) COPD (chronic obstructive pulmonary disease) Code(s): J44.9 - CHRONIC OBSTRUCTIVE PULMONARY DISEASE, UNSPECIFIED (3) Cachexia Code(s): R64 - CACHEXIA (4) Weakness generalized Code(s): R53.1 - WEAKNESS Assessment/Plan discussed with son will get ct chest/ abdomen concern of malignancy will consult pulmonary also f/u labs increase fluids. dvt propylaxis check stool for occult blood will follow
[2018-01-20 13:43] LABS: URINE APPEARANCE SLCLOUDY; URINE BILIRUBIN NEGATIVE (<2.0 mg/dL); URINE COLOR YELLOW; URINE GLUCOSE (UA) NEGATIVE (NEGATIVE); URINE KETONE 1+ (NEGATIVE); URINE LEUK ESTERASE NEGATIVE (NEGATIVE); URINE NITRITE NEGATIVE (NEGATIVE); URINE PROTEIN 1+ (NEGATIVE); URINE UROBILINOGEN NEGATIVE mg/dL (0.2-1.0)
[2018-01-20] MEDS: D5-1/2NS+20 MEQ KCL - 20 MEQ/1,000 ML INFUS.BAG IV SCH (13:54)
[2018-01-20 14:09] LABS: URINE MUCUS FEW
[2018-01-20] MEDS ORDERED: FLU VACCINE QUAD 60 MCG/0.5 ML (MDV 18-19) IM ONE (15:30)
--- NOTE | 2018-01-20 17:23 | PN ---
Progress Note (short form) - Note Progress Note: PULMONARY CONSULTATION DICTATED 01/20/18 IMP ADVANCE ILD/BRONCHIECTASIS CONSTIPATION/ABD PAIN COPD BPH ANEMIA PLAN INHALED BRONCHODILATORS O2 ABX LAXATIVES ?GI EVALUATION DR BROWN Problem List - Problems (1) Interstitial lung disease Code(s): J84.9 - INTERSTITIAL PULMONARY DISEASE, UNSPECIFIED (2) BPH (benign prostatic hyperplasia) Code(s): N40.0 - BENIGN PROSTATIC HYPERPLASIA WITHOUT LOWER URINRY TRACT SYMP (3) COPD (chronic obstructive pulmonary disease) Code(s): J44.9 - CHRONIC OBSTRUCTIVE PULMONARY DISEASE, UNSPECIFIED (4) Cachexia Code(s): R64 - CACHEXIA (5) Anemia Code(s): D64.9 - ANEMIA, UNSPECIFIED (6) Cough Code(s): R05 - COUGH (7) Bronchiectasis Code(s): J47.9 - BRONCHIECTASIS, UNCOMPLICATED
--- NOTE | 2018-01-20 18:04 | CONS ---
DATE OF CONSULTATION: 01/20/2018 PULMONARY CONSULTATION REFERRING PHYSICIAN: Alec Chavira M.D. INFORMANT: History obtained from patient's son as well as chart. HISTORY OF PRESENT ILLNESS: The patient is an 82-year-old male with a past medical history of COPD, interstitial lung disease, extensive bronchiectasis, BPH, nonsmoker, admitted to [facility] with complaints of generalized weakness and constipation. Apparently he has been constipated for the past 8 days. Denies any nausea, vomiting. Did have some apparent abdominal discomfort while having a BM. He also had a cough productive of white sputum with no hemoptysis. Denied any fevers or chills. Denies any dyspnea with exertion. States he has a history of interstitial lung disease. He underwent a CT scan of the chest which revealed extensive bronchiectatic changes and bilateral nodular infiltrates. There is no history of tuberculosis. There is no history of fevers. PAST MEDICAL HISTORY: Again includes extensive bronchiectasis, interstitial lung disease, COPD, asthma, anemia, BPH. REVIEW OF SYSTEMS: No shortness of breath. Positive mild cough, productive white sputum. No chest pain. No palpitations. Pos constipation. Positive mild abdominal pain. No fever. No chills. No lower extremity edema. CURRENT MEDICATIONS: Include glycopyrrolate, Flomax, Lovenox, Spiriva, albuterol. SOCIAL HISTORY: Born in [place]. 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 PHYSICAL EXAMINATION: GENERAL: The patient is a cachectic male, thin, well developed. Awake, in no acute respiratory distress. VITAL SIGNS: He is afebrile. Blood pressure 93/50, respiratory rate 18. HEENT: Normocephalic, atraumatic. NECK: Supple. HEART: Regular S1, S2. CHEST: Bilateral crackles. ABDOMEN: Soft, bowel sounds positive. EXTREMITIES: No cyanosis, edema. LABORATORY: WBC 15.2, hemoglobin 8.6, hematocrit 25.4, platelet count of 433,000. BUN 7, creatinine 0.9. Chest CT as noted earlier. IMPRESSION: 1. Extensive bronchiectasis and extensive interstitial lung disease. 2. Constipation/abdominal pain. 3. Cachexia. 4. Benign prostatic hypertrophy. 5. Anemia. PLAN: Antibiotics. GI evaluation. Supplemental O2. Inhaled bronchodilators. GIANFRANCO BROWN M.D. MARYBETH/[id number]
[2018-01-20] MEDS: ENOXAPARIN NA (PORCINE) 40 MG/0.4 ML DISP.SYRIN SQ SCH (19:59)
[2018-01-21] MEDS: D5-1/2NS+20 MEQ KCL - 20 MEQ/1,000 ML INFUS.BAG IV SCH ×2 (03:20→14:25)
[2018-01-21 07:12] LABS: BASO % 0.9 % (0-2.0); EOS % 0.4 % (0-4.5); HEMATOCRIT 22.2 % (35.4-49); HEMOGLOBIN 7.7 GM/dL (11.7-16.9); LYMPH % 9.6 % (8-40); MCH 28.6 pg (25.7-33.7); MCHC 34.7 g/dl (32.0-35.9); MEAN CELL VOLUME 82.6 fl (80-96); MEAN PLT VOLUME 7.4 fl (7.5-11.1); MONO % 5.9 % (3.8-10.2); NEUT % 83.2 % (42.8-82.8); PLATELET COUNT 416 K/MM3 (134-434); RBC 2.69 M/mm3 (4.00-5.60); RDW 16.6 % (11.9-15.9); WHITE BLOOD COUNT 6.6 K/mm3 (4.0-10.0)
[2018-01-21 08:20] LABS: ALBUMIN 1.7 g/dl (3.4-5.0); ALK PHOS 92 U/L (45-117); ANION GAP 6 MMOL/L (8-16); BILIRUBIN,TOTAL 0.4 mg/dL (0.2-1); BLOOD UREA NITROGEN 14 mg/dL (7-18); CALCIUM 7.6 mg/dL (8.5-10.1); CHLORIDE 99 mmol/L (98-107); CO2 27 mmol/L (21-32); CREATININE 0.7 mg/dL (0.55-1.3); GLUCOSE,RANDOM 102 mg/dL (74-106); SGOT/AST 48 U/L (15-37); SGPT/ALT 15 U/L (13-61); SODIUM 132 mmol/L (136-145); TOT PROT 6.6 g/dl (6.4-8.2)
[2018-01-21] MEDS: TAMSULOSIN HCL 0.4 MG CAP PO SCH (08:39)
[2018-01-21] MEDS: ENOXAPARIN NA (PORCINE) 40 MG/0.4 ML DISP.SYRIN SQ SCH (10:47)
[2018-01-21] MEDS: TIOTROPIUM BROMIDE 2.5 MCG (SPIRIVA) RESPIMAT INHALER IH SCH ×2 (10:48→11:13)
--- NOTE | 2018-01-21 11:33 | PN ---
Progress Note, Physician History of Present Illness: pt seen/ examined chart reviewed awake/comfortable looks better daughter at bedside decrease in h/h-- likely delusional. ct scans reviewed/ noted. Pt has refused colonoscopy in past stool for occult blood - pending - Current Medication List Current Medications: Active Medications Albuterol Sulfate (Ventolin 0.083% Nebulizer Soln -) 1 amp NEB Q6H PRN PRN Reason: SHORT OF BREATH/WHEEZING Enoxaparin Sodium (Lovenox -) 40 mg SQ DAILY [facility] Last Admin: 01/21/18 10:47 Dose: 40 mg Potassium Chloride/Dextrose/Sod Cl (D5-1/2ns+20 Meq Kcl -) 20 meq in 1,000 mls @ 100 mls/hr IV ASDIR [facility] Last Admin: 01/21/18 03:20 Dose: 100 mls/hr Levofloxacin (Levaquin 500 Mg Premixed Ivpb -) 500 mg in 100 mls @ 100 mls/hr IVPB DAILY [facility]; Protocol Non-Formulary Medication (Glycopyrrolate/Formoterol Fum [Bevespi Aerosphere Inhaler]) 5.9 gm IH DAILY [facility] Tamsulosin HCl (Flomax -) 0.4 mg PO DAILY@0830 [facility] Last Admin: 01/21/18 08:39 Dose: 0.4 mg Tiotropium [place] (Spiriva Respimat) 2 puff IH DAILY [facility] Last Admin: 01/21/18 11:13 Dose: 2 puff - Objective Vital Signs: Vital Signs Temperature 98.3 F 01/21/18 09:48 Pulse Rate 88 01/21/18 09:48 Respiratory Rate 18 01/21/18 09:48 Blood Pressure 102/46 L 01/21/18 09:48 O2 Sat by Pulse Oximetry (%) 98 01/21/18 03:00 Constitutional: Yes: No Distress Eyes: Yes: Conjunctiva Clear Neck: Yes: Supple Cardiovascular: Yes: Regular Rate and Rhythm Respiratory: Yes: CTA Bilaterally Gastrointestinal: Yes: Soft Edema: No Neurological: Yes: Alert Psychiatric: Yes: Alert Labs: CBC, BMP 01/21/18 06:00 01/21/18 06:00 Problem List - Problems (1) BPH (benign prostatic hyperplasia) Code(s): N40.0 - BENIGN PROSTATIC HYPERPLASIA WITHOUT LOWER URINRY TRACT SYMP (2) COPD (chronic obstructive pulmonary disease) Code(s): J44.9 - CHRONIC OBSTRUCTIVE PULMONARY DISEASE, UNSPECIFIED (3) Cachexia Code(s): R64 - CACHEXIA (4) Weakness generalized Code(s): R53.1 - WEAKNESS Assessment/Plan Overall better continue present care f/u [facility] pulmonary consult noted/ appreciated. continue present care for now will follow will consult gi also
--- NOTE | 2018-01-21 12:23 | PN ---
Progress Note, Physician History of Present Illness: pulmonary' alert,no distress,-sob,-cough - Current Medication List Current Medications: Active Medications Albuterol Sulfate (Ventolin 0.083% Nebulizer Soln -) 1 amp NEB Q6H PRN PRN Reason: SHORT OF BREATH/WHEEZING Enoxaparin Sodium (Lovenox -) 40 mg SQ DAILY [facility] Last Admin: 01/21/18 10:47 Dose: 40 mg Potassium Chloride/Dextrose/Sod Cl (D5-1/2ns+20 Meq Kcl -) 20 meq in 1,000 mls @ 100 mls/hr IV ASDIR [facility] Last Admin: 01/21/18 03:20 Dose: 100 mls/hr Levofloxacin (Levaquin 500 Mg Premixed Ivpb -) 500 mg in 100 mls @ 100 mls/hr IVPB DAILY [facility]; Protocol Non-Formulary Medication (Glycopyrrolate/Formoterol Fum [Bevespi Aerosphere Inhaler]) 5.9 gm IH DAILY [facility] Tamsulosin HCl (Flomax -) 0.4 mg PO DAILY@0830 [facility] Last Admin: 01/21/18 08:39 Dose: 0.4 mg Tiotropium [place] (Spiriva Respimat) 2 puff IH DAILY [facility] Last Admin: 01/21/18 11:13 Dose: 2 puff - Objective Vital Signs: Vital Signs Temperature 98.3 F 01/21/18 09:48 Pulse Rate 88 01/21/18 09:48 Respiratory Rate 18 01/21/18 09:48 Blood Pressure 102/46 L 01/21/18 09:48 O2 Sat by Pulse Oximetry (%) 98 01/21/18 03:00 Constitutional: Yes: Calm, Cachectic Eyes: Yes: WNL HENT: Yes: WNL Neck: Yes: WNL Cardiovascular: Yes: Regular Rate and Rhythm, S1, S2 Respiratory: Yes: Rales (bibasilar crackles) Gastrointestinal: Yes: Normal Bowel Sounds, Soft Extremities: Yes: WNL Edema: No Labs: CBC, BMP 01/21/18 06:00 01/21/18 06:00 Problem List - Problems (1) Interstitial lung disease Code(s): J84.9 - INTERSTITIAL PULMONARY DISEASE, UNSPECIFIED (2) BPH (benign prostatic hyperplasia) Code(s): N40.0 - BENIGN PROSTATIC HYPERPLASIA WITHOUT LOWER URINRY TRACT SYMP (3) COPD (chronic obstructive pulmonary disease) Code(s): J44.9 - CHRONIC OBSTRUCTIVE PULMONARY DISEASE, UNSPECIFIED (4) Cachexia Code(s): R64 - CACHEXIA (5) Anemia Code(s): D64.9 - ANEMIA, UNSPECIFIED (6) Cough Code(s): R05 - COUGH (7) Bronchiectasis Code(s): J47.9 - BRONCHIECTASIS, UNCOMPLICATED Assessment/Plan IMP ADVANCE ILD/BRONCHIECTASIS CONSTIPATION/ABD PAIN COPD BPH ANEMIA PLAN INHALED BRONCHODILATORS O2 ABX NORMAL TRANSFUSION THRESHOLD DR BROWN Problem List - Problems (1) Interstitial lung disease Code(s): J84.9 - INTERSTITIAL PULMONARY DISEASE, UNSPECIFIED (2) BPH (benign prostatic hyperplasia) Code(s): N40.0 - BENIGN PROSTATIC HYPERPLASIA WITHOUT LOWER URINRY TRACT SYMP (3) COPD (chronic obstructive pulmonary disease) Code(s): J44.9 - CHRONIC OBSTRUCTIVE PULMONARY DISEASE, UNSPECIFIED (4) Cachexia Code(s): R64 - CACHEXIA (5) Anemia Code(s): D64.9 - ANEMIA, UNSPECIFIED (6) Cough Code(s): R05 - COUGH (7) Bronchiectasis Code(s): J47.9 - BRONCHIECTASIS, UNCOMPLICATED
--- NOTE | 2018-01-21 13:09 | CON.GI ---
Consult Consult Specialty:: GI Referred by:: Dr. 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 Patient's daughter Katerina and the patient's are present at bedside. Despite using a [place] [employer] freelance interpreter/translator, there was still difficulty with interpretation, therefore, his daughter aided in interpretation as well. They state that he has since had a bowel movement and denies any focal GI complaints. He has never had an upper endoscopy or colonoscopy. When I asked his family regarding history of anemia. they stated that they have known about this for multiple years. They believe that he was also seen by a peripheral equipment operator as well and believes he was told to "drink ensure". There has been no overt rectal bleeding , melena, dysphagia, odynophagia, unintentional weight loss (patient's family that he has been thin as far as they could remember), change in appetite, early satiety. There is no family history of colorectal cancer or other GI malignancy. CT scan of the abdomen and pelvis with PO contrast 01/20 was unremarkable except for enlarged prostate. - History Source History Provided By: Patient, Family Member Limitations to Obtaining History: Language Barrier - Past Medical History Pulmonary: Yes: Asthma Renal/: Yes: BPH Heme/Onc: Yes: Anemia - Past Surgical History Past Surgical History: Yes: None - Alcohol/Substance Use Hx Alcohol Use: No - Smoking History Smoking history: Never smoked Have you smoked in the past 12 months: No Aproximately how many cigarettes per day: 0 - Social History Usual Living Arrangement: With Spouse ADL: Independent Occupation: Worked as [employer] in [place] of : Other ([place]) Came to [place]year[place] 2004 History of Recent Travel: No Home Medications - Allergies Allergies/Adverse Reactions: Allergies Allergy/AdvReac Type Severity Reaction Status Date / Time fish derived [Fish derived] Allergy Verified 07/31/17 16:41 Shellfish Allergy Verified 07/31/17 16:41 - Home Medications Home Medications: Ambulatory Orders Tiotropium [place] [Spiriva -] 18 mcg IH BID 03/17/13 Glycopyrrolate/Formoterol Fum [Bevespi Aerosphere Inhaler] 5.9 gm IH DAILY #1 hfa.aer.ad 07/31/17 Family Disease History - Family Disease History Family Disease History: Other: Father (: 97 of "Old Age"), Mother (: Age 40: "fever"), Brother (1: from alcoholic complications), Son (2, healthy), Daughter (5, healthy) Other Family History: No family history of colorectal cancer or other GI malignancy Review of Systems - Review of Systems Constitutional: reports: Weakness. denies: Fever, Loss of Appetite Physical Exam-GI Vital Signs: Vital Signs Temperature 98.3 F 01/21/18 09:48 Pulse Rate 88 01/21/18 09:48 Respiratory Rate 18 01/21/18 09:48 Blood Pressure 102/46 L 01/21/18 09:48 O2 Sat by Pulse Oximetry (%) 98 01/21/18 03:00 Constitutional: Yes: Calm, Other (Thin elderly male in no distress) Eyes: No: Sclera Icterus Cardiovascular: Yes: Regular Rate and Rhythm. No: Murmur Respiratory: Yes: CTA Bilaterally Gastrointestinal Inspection: No: Hernia, Scars ...Auscultate: Yes: Normoactive Bowel Sounds ...Palpate: Yes: Soft, Other (thin abdominal wall). No: Hepatomegaly, Tenderness ...Rectal Exam: Yes: Guaiac Positive (light brown stool, guaiac positive) Edema: No (No LE edema) Neurological: Yes: Alert Labs: CBC, BMP 01/21/18 06:00 01/21/18 06:00 Imaging - Results Cat Scan: Report Reviewed, Image Reviewed Problem List - Problems (1) Anemia Assessment/Plan: I discussed the finding of anemia with Mr. Nolasco using Crew Frog Catcher [id number] and supplemented by his daughter Katerina [place] (Cell # ) who was presenrt at bedside. We discussed upper endoscopy to look for GI causes of blood loss. We discussed potential risks of the procedures like but not limited to bleeding, perforation requiring surgery to repair, infection and sedation medication effects all of which could be potentially life threatening. At first, he was apprehensive to have the procedures performed, but after the finding of occult blood in the stool on my exam, he was in agreement. Consent was signed by patient and daughter. Advise: Monitor H/H and for overt bleeding Plan for EGD / Colonoscopy 01/23 Code(s): D64.9 - ANEMIA, UNSPECIFIED Qualifiers: Anemia type: unspecified type Qualified Code(s): D64.9 - Anemia, unspecified
[2018-01-21 16:30] VITALS: BMI 16.0
[2018-01-22] MEDS: D5-1/2NS+20 MEQ KCL - 20 MEQ/1,000 ML INFUS.BAG IV SCH ×2 (00:57→12:56)
[2018-01-22 07:27] LABS: BASO % 0.9 % (0-2.0); EOS % 0.8 % (0-4.5); HEMATOCRIT 23.1 % (35.4-49); HEMOGLOBIN 7.4 GM/dL (11.7-16.9); LYMPH % 14.5 % (8-40); MCH 26.7 pg (25.7-33.7); MCHC 32.3 g/dl (32.0-35.9); MEAN CELL VOLUME 82.9 fl (80-96); MEAN PLT VOLUME 7.2 fl (7.5-11.1); MONO % 8.7 % (3.8-10.2); NEUT % 75.1 % (42.8-82.8); PLATELET COUNT 385 K/MM3 (134-434); RBC 2.78 M/mm3 (4.00-5.60); RDW 16.9 % (11.9-15.9); WHITE BLOOD COUNT 5.6 K/mm3 (4.0-10.0)
[2018-01-22 08:00] LABS: ALBUMIN 1.7 g/dl (3.4-5.0); ALK PHOS 88 U/L (45-117); ANION GAP 4 MMOL/L (8-16); BILIRUBIN,TOTAL 0.4 mg/dL (0.2-1); BLOOD UREA NITROGEN 7 mg/dL (7-18); CALCIUM 7.6 mg/dL (8.5-10.1); CHLORIDE 99 mmol/L (98-107); CO2 30 mmol/L (21-32); CREATININE 0.7 mg/dL (0.55-1.3); GLUCOSE,RANDOM 103 mg/dL (74-106); SGOT/AST 32 U/L (15-37); SGPT/ALT 15 U/L (13-61); SODIUM 134 mmol/L (136-145); TOT PROT 6.5 g/dl (6.4-8.2)
[2018-01-22] MEDS: TIOTROPIUM BROMIDE 2.5 MCG (SPIRIVA) RESPIMAT INHALER IH SCH (09:11)
[2018-01-22] MEDS: ENOXAPARIN NA (PORCINE) 40 MG/0.4 ML DISP.SYRIN SQ SCH (09:11)
[2018-01-22] MEDS: TAMSULOSIN HCL 0.4 MG CAP PO SCH (09:11)
[2018-01-22] MEDS ORDERED: BISACODYL 5 MG TABLET.DR (FP) PO ONE (13:00)
[2018-01-22] MEDS ORDERED: PEG3350/SOD SULF,BICARB,CL/KCL 4,000 ML SOLN.RECON PO ONE (14:00)
--- NOTE | 2018-01-22 14:02 | PN ---
Progress Note (short form) - Note Progress Note: comfortable no new issues bp on low side daughter at bedside discussed with her-- for endo tomorrow Had discussed with Dr. Goins yesterday also. Vital Signs Temp 97 F L 01/22/18 13:58 Pulse 64 01/22/18 13:58 Resp 20 01/22/18 13:58 BP 94/64 01/22/18 13:58 Pulse Ox 96 01/22/18 11:00 Intake & Output 01/21/18 01/22/18 01/22/18 23:59 11:59 23:59 Intake Total 240 1200 480 Output Total 1100 1000 Balance -860 200 480 Weight 85 lb Intake: IV 1200 D5-1/2NS+20 MEQ KCL - 20 1200 meq In 1,000 ml @ 100 mls /hr IV [facility] Rx#: [id number] Oral 240 480 Output: Urine 1100 1000 Void 1100 1000 Other: Voiding Method Toilet Urinal # Unmeasured Voids Void 2 1 Bowel Movement Yes # Bowel Movements 2 Height 5 ft 1 in Body Mass Index (BMI) 16.0 Active Medications Albuterol Sulfate (Ventolin 0.083% Nebulizer Soln -) 1 amp NEB Q6H PRN PRN Reason: SHORT OF BREATH/WHEEZING Enoxaparin Sodium (Lovenox -) 40 mg SQ DAILY [facility] Last Admin: 01/22/18 09:11 Dose: 40 mg Potassium Chloride/Dextrose/Sod Cl (D5-1/2ns+20 Meq Kcl -) 20 meq in 1,000 mls @ 100 mls/hr IV [facility] Last Admin: 01/22/18 12:56 Dose: 100 mls/hr Levofloxacin (Levaquin 250 Mg Premixed Ivpb -) 250 mg in 50 mls @ 50 mls/hr IVPB DAILY [facility] Last Admin: 01/22/18 10:02 Dose: 50 mls/hr Non-Formulary Medication (Glycopyrrolate/Formoterol Fum [Bevespi Aerosphere Inhaler]) 5.9 gm IH DAILY [facility] Tamsulosin HCl (Flomax -) 0.4 mg PO DAILY@0830 [facility] Last Admin: 01/22/18 09:11 Dose: 0.4 mg Tiotropium [place] (Spiriva Respimat) 2 puff IH DAILY [facility] Last Admin: 01/22/18 09:11 Dose: 2 puff CBC, BMP 01/22/18 06:00 01/22/18 06:00 Microbiology 01/20/18 04:50 Blood Culture - Preliminary Blood - Peripheral Venous NO GROWTH OBTAINED AFTER 48 HOURS, INCUBATION TO CONTINUE FOR 3 DAYS. 01/20/18 05:00 Blood Culture - Preliminary Blood - Peripheral Venous NO GROWTH OBTAINED AFTER 48 HOURS, INCUBATION TO CONTINUE FOR 3 DAYS. Physical Exam. Constitutional: Yes: No Distress Eyes: Yes: Conjunctiva Clear Neck: Yes: Supple Cardiovascular: Yes: Regular Rate and Rhythm Respiratory: Yes: CTA Bilaterally Gastrointestinal: Yes: Soft Edema: No Neurological: Yes: Alert Psychiatric: Yes: Alert Assessment/Plan Overall better continue present care for endo tomorrow will follow continue mild hydration for now. Problem List - Problems (1) BPH (benign prostatic hyperplasia) Code(s): N40.0 - BENIGN PROSTATIC HYPERPLASIA WITHOUT LOWER URINRY TRACT SYMP (2) COPD (chronic obstructive pulmonary disease) Code(s): J44.9 - CHRONIC OBSTRUCTIVE PULMONARY DISEASE, UNSPECIFIED (3) Cachexia Code(s): R64 - [place] (4) Weakness generalized Code(s): R53.1 - WEAKNESS
--- NOTE | 2018-01-22 14:14 | PN ---
Progress Note, Physician History of Present Illness: PULMONARY AWAKE,NO DISTRESS - Current Medication List Current Medications: Active Medications Albuterol Sulfate (Ventolin 0.083% Nebulizer Soln -) 1 amp NEB Q6H PRN PRN Reason: SHORT OF BREATH/WHEEZING Enoxaparin Sodium (Lovenox -) 40 mg SQ DAILY [facility] Last Admin: 01/22/18 09:11 Dose: 40 mg Potassium Chloride/Dextrose/Sod Cl (D5-1/2ns+20 Meq Kcl -) 20 meq in 1,000 mls @ 100 mls/hr IV ASDIR [facility] Last Admin: 01/22/18 12:56 Dose: 100 mls/hr Levofloxacin (Levaquin 250 Mg Premixed Ivpb -) 250 mg in 50 mls @ 50 mls/hr IVPB DAILY [facility] Last Admin: 01/22/18 10:02 Dose: 50 mls/hr Non-Formulary Medication (Glycopyrrolate/Formoterol Fum [Bevespi Aerosphere Inhaler]) 5.9 gm IH DAILY [facility] Tamsulosin HCl (Flomax -) 0.4 mg PO DAILY@0830 [facility] Last Admin: 01/22/18 09:11 Dose: 0.4 mg Tiotropium [place] (Spiriva Respimat) 2 puff IH DAILY [facility] Last Admin: 01/22/18 09:11 Dose: 2 puff - Objective Vital Signs: Vital Signs Temperature 97 F L 01/22/18 13:58 Pulse Rate 64 01/22/18 13:58 Respiratory Rate 20 01/22/18 13:58 Blood Pressure 94/64 01/22/18 13:58 O2 Sat by Pulse Oximetry (%) 96 01/22/18 11:00 Constitutional: Yes: Calm, Cachectic Eyes: Yes: WNL HENT: Yes: WNL Neck: Yes: WNL Cardiovascular: Yes: Regular Rate and Rhythm, S1, S2 Respiratory: Yes: Diminished Gastrointestinal: Yes: Normal Bowel Sounds, Soft Extremities: Yes: WNL Edema: No Labs: CBC, BMP 01/22/18 06:00 01/22/18 06:00 Problem List - Problems (1) Interstitial lung disease Code(s): J84.9 - INTERSTITIAL PULMONARY DISEASE, UNSPECIFIED (2) BPH (benign prostatic hyperplasia) Code(s): N40.0 - BENIGN PROSTATIC HYPERPLASIA WITHOUT LOWER URINRY TRACT SYMP (3) COPD (chronic obstructive pulmonary disease) Code(s): J44.9 - CHRONIC OBSTRUCTIVE PULMONARY DISEASE, UNSPECIFIED (4) Cachexia Code(s): R64 - [place] (5) Anemia Code(s): D64.9 - ANEMIA, UNSPECIFIED Qualifiers: Anemia type: unspecified type Qualified Code(s): D64.9 - Anemia, unspecified (6) Cough Code(s): R05 - COUGH (7) Bronchiectasis Code(s): J47.9 - BRONCHIECTASIS, UNCOMPLICATED Assessment/Plan IMP ADVANCE ILD/BRONCHIECTASIS CONSTIPATION/ABD PAIN COPD BPH ANEMIA PLAN INHALED BRONCHODILATORS O2 ABX NORMAL TRANSFUSION THRESHOLD COLONOSCOPY IN AM DR BROWN Problem List - Problems (1) Interstitial lung disease Code(s): J84.9 - INTERSTITIAL PULMONARY DISEASE, UNSPECIFIED (2) BPH (benign prostatic hyperplasia) Code(s): N40.0 - BENIGN PROSTATIC HYPERPLASIA WITHOUT LOWER URINRY TRACT SYMP (3) COPD (chronic obstructive pulmonary disease) Code(s): J44.9 - CHRONIC OBSTRUCTIVE PULMONARY DISEASE, UNSPECIFIED (4) Cachexia Code(s): R64 - [place] (5) Anemia Code(s): D64.9 - ANEMIA, UNSPECIFIED (6) Cough Code(s): R05 - COUGH (7) Bronchiectasis Code(s): J47.9 - BRONCHIECTASIS, UNCOMPLICATED
[2018-01-23 06:06] LABS: BASO % 1.2 % (0-2.0); EOS % 1.1 % (0-4.5); LYMPH % 18.8 % (8-40); MCH 26.3 pg (25.7-33.7); MCHC 31.7 g/dl (32.0-35.9); MONO % 8.5 % (3.8-10.2); NEUT % 70.4 % (42.8-82.8); PLATELET COUNT 373 K/MM3 (134-434); RBC 2.66 M/mm3 (4.00-5.60); RDW 17.1 % (11.9-15.9); WHITE BLOOD COUNT 5.7 K/mm3 (4.0-10.0)
[2018-01-23 06:37] LABS: ALBUMIN 1.8 g/dl (3.4-5.0); ALK PHOS 90 U/L (45-117); ANION GAP 5 MMOL/L (8-16); BILIRUBIN,TOTAL 0.3 mg/dL (0.2-1); BLOOD UREA NITROGEN 5 mg/dL (7-18); CALCIUM 7.6 mg/dL (8.5-10.1); CHLORIDE 101 mmol/L (98-107); CO2 28 mmol/L (21-32); CREATININE 0.6 mg/dL (0.55-1.3); GLUCOSE,RANDOM 102 mg/dL (74-106); POTASSIUM 4.2 mmol/L (3.5-5.1); SGOT/AST 25 U/L (15-37); SGPT/ALT 14 U/L (13-61); SODIUM 134 mmol/L (136-145); TOT PROT 6.5 g/dl (6.4-8.2)
[2018-01-23] MEDS ORDERED: SIMETHICONE 40 MG/0.6 ML BOTTLE ONE (11:40)
--- NOTE | 2018-01-23 12:29 | PN ---
Progress Note (short form) - Note Progress Note: Comfortable just came back form endo daughter at bedside Vital Signs Temp 97.6 F 01/23/18 12:07 Pulse 53 L 01/23/18 12:22 Resp 20 01/23/18 12:22 BP 90/52 L 01/23/18 12:22 Pulse Ox 100 01/23/18 12:22 Intake & Output 01/22/18 01/23/18 01/23/18 23:59 11:59 23:59 Intake Total 4280 1300 Balance 4280 1300 Intake: IV 1800 1300 D5-1/2NS+20 MEQ KCL - 20 1800 700 meq In 1,000 ml @ 100 mls /hr IV ASDIR [facility] Rx#: [id number] Oral 2480 Other: Voiding Method Urinal Toilet # Unmeasured Voids Void 5 2 Active Medications Albuterol Sulfate (Ventolin 0.083% Nebulizer Soln -) 1 amp NEB Q6H PRN PRN Reason: SHORT OF BREATH/WHEEZING Potassium Chloride/Dextrose/Sod Cl (D5-1/2ns+20 Meq Kcl -) 20 meq in 1,000 mls @ 100 mls/hr IV ASDIR [facility] Last Admin: 01/22/18 12:56 Dose: 100 mls/hr Levofloxacin (Levaquin 250 Mg Premixed Ivpb -) 250 mg in 50 mls @ 50 mls/hr IVPB DAILY [facility] Last Admin: 01/22/18 10:02 Dose: 50 mls/hr Non-Formulary Medication (Glycopyrrolate/Formoterol Fum [Bevespi Aerosphere Inhaler]) 5.9 gm IH DAILY [facility] Tamsulosin HCl (Flomax -) 0.4 mg PO DAILY@0830 [facility] Last Admin: 01/22/18 09:11 Dose: 0.4 mg Tiotropium [place] (Spiriva Respimat) 2 puff IH DAILY [facility] Last Admin: 01/22/18 09:11 Dose: 2 puff CBC, BMP 01/23/18 05:30 01/23/18 05:30 Microbiology 01/20/18 04:50 Blood Culture - Preliminary Blood - Peripheral Venous NO GROWTH OBTAINED AFTER 72 HOURS, INCUBATION TO CONTINUE FOR 2 DAYS. 01/20/18 05:00 Blood Culture - Preliminary Blood - Peripheral Venous NO GROWTH OBTAINED AFTER 72 HOURS, INCUBATION TO CONTINUE FOR 2 DAYS. Physical Exam. Constitutional: Yes: No Distress. comfortable Eyes: Yes: Conjunctiva Clear Neck: Yes: Supple Cardiovascular: Yes: Regular Rate and Rhythm Respiratory: Yes: CTA Bilaterally Gastrointestinal: Yes: Soft Edema: No Neurological: Yes: Alert Psychiatric: Yes: Alert Assessment/Plan Overall stable. continue present care will see endo report. will follow. continue mild hydration for now. Problem List - Problems (1) BPH (benign prostatic hyperplasia) Code(s): N40.0 - BENIGN PROSTATIC HYPERPLASIA WITHOUT LOWER URINRY TRACT SYMP (2) COPD (chronic obstructive pulmonary disease) Code(s): J44.9 - CHRONIC OBSTRUCTIVE PULMONARY DISEASE, UNSPECIFIED (3) Cachexia Code(s): R64 - [place] (4) Weakness generalized Code(s): R53.1 - WEAKNESS
--- NOTE | 2018-01-23 13:44 | PN ---
Progress Note, Physician History of Present Illness: PULMONARY ALERT,NO DISTRESS,-SOB,S/P EGD AND COLONOSCOPY TOLERATED PROCEDURE WELL - Current Medication List Current Medications: Active Medications Albuterol Sulfate (Ventolin 0.083% Nebulizer Soln -) 1 amp NEB Q6H PRN PRN Reason: SHORT OF BREATH/WHEEZING Potassium Chloride/Dextrose/Sod Cl (D5-1/2ns+20 Meq Kcl -) 20 meq in 1,000 mls @ 100 mls/hr IV ASDIR [facility] Last Admin: 01/22/18 12:56 Dose: 100 mls/hr Levofloxacin (Levaquin 250 Mg Premixed Ivpb -) 250 mg in 50 mls @ 50 mls/hr IVPB DAILY [facility] Last Admin: 01/22/18 10:02 Dose: 50 mls/hr Non-Formulary Medication (Glycopyrrolate/Formoterol Fum [Bevespi Aerosphere Inhaler]) 5.9 gm IH DAILY [facility] Tamsulosin HCl (Flomax -) 0.4 mg PO DAILY@0830 [facility] Last Admin: 01/22/18 09:11 Dose: 0.4 mg Tiotropium [place] (Spiriva Respimat) 2 puff IH DAILY [facility] Last Admin: 01/22/18 09:11 Dose: 2 puff - Objective Vital Signs: Vital Signs Temperature 97.6 F 01/23/18 12:07 Pulse Rate 70 01/23/18 13:23 Respiratory Rate 19 01/23/18 12:59 Blood Pressure 112/60 01/23/18 13:23 O2 Sat by Pulse Oximetry (%) 100 01/23/18 12:59 Constitutional: Yes: Calm, Cachectic Eyes: Yes: WNL HENT: Yes: WNL Neck: Yes: WNL Cardiovascular: Yes: Regular Rate and Rhythm, S1, S2 Respiratory: Yes: Diminished Gastrointestinal: Yes: Normal Bowel Sounds, Soft Extremities: Yes: WNL Edema: No Labs: CBC, BMP 01/23/18 05:30 01/23/18 05:30 Problem List - Problems (1) Interstitial lung disease Code(s): J84.9 - INTERSTITIAL PULMONARY DISEASE, UNSPECIFIED (2) BPH (benign prostatic hyperplasia) Code(s): N40.0 - BENIGN PROSTATIC HYPERPLASIA WITHOUT LOWER URINRY TRACT SYMP (3) COPD (chronic obstructive pulmonary disease) Code(s): J44.9 - CHRONIC OBSTRUCTIVE PULMONARY DISEASE, UNSPECIFIED (4) Cachexia Code(s): R64 - [place] (5) Anemia Code(s): D64.9 - ANEMIA, UNSPECIFIED Qualifiers: Anemia type: unspecified type Qualified Code(s): D64.9 - Anemia, unspecified (6) Cough Code(s): R05 - COUGH (7) Bronchiectasis Code(s): J47.9 - BRONCHIECTASIS, UNCOMPLICATED Assessment/Plan IMP ADVANCE ILD/BRONCHIECTASIS CONSTIPATION/ABD PAIN COPD BPH ANEMIA PLAN INHALED BRONCHODILATORS O2 ABX NORMAL TRANSFUSION THRESHOLD DR BROWN Problem List - Problems (1) Interstitial lung disease Code(s): J84.9 - INTERSTITIAL PULMONARY DISEASE, UNSPECIFIED (2) BPH (benign prostatic hyperplasia) Code(s): N40.0 - BENIGN PROSTATIC HYPERPLASIA WITHOUT LOWER URINRY TRACT SYMP (3) COPD (chronic obstructive pulmonary disease) Code(s): J44.9 - CHRONIC OBSTRUCTIVE PULMONARY DISEASE, UNSPECIFIED (4) Cachexia Code(s): R64 - [place] (5) Anemia Code(s): D64.9 - ANEMIA, UNSPECIFIED (6) Cough Code(s): R05 - COUGH (7) Bronchiectasis Code(s): J47.9 - BRONCHIECTASIS, UNCOMPLICATED
[2018-01-23] MEDS: TAMSULOSIN HCL 0.4 MG CAP PO SCH (13:45)
[2018-01-23] MEDS: D5-1/2NS+20 MEQ KCL - 20 MEQ/1,000 ML INFUS.BAG IV SCH (13:46)
[2018-01-23] MEDS: TIOTROPIUM BROMIDE 2.5 MCG (SPIRIVA) RESPIMAT INHALER IH SCH (13:49)
--- NOTE | 2018-01-23 14:03 | PN ---
Progress Note (short form) - Note Progress Note: Briefly, EGD and colonoscopy findings. Please see full reports in paper chart Colonoscopy with internal hemorrhoids, otherwise normal Endoscopy with gastritis and hiatal hernia, stomach biopsies taken for H. pylori Please check iron studies on pre-transfusino CBC Follow up hepatitis serologies Will need outpatient GI f/u
[2018-01-24] MEDS: TAMSULOSIN HCL 0.4 MG CAP PO SCH (08:50)
--- NOTE | 2018-01-24 09:28 | PN ---
Progress Note (short form) - Note Progress Note: comfortable dry cough+ walkes with assistance. bp runs low side endo / gi report reviewed Vital Signs Temp 98.3 F 01/24/18 06:53 Pulse 67 01/24/18 07:14 Resp 18 01/24/18 07:14 BP 98/51 L 01/24/18 07:14 Pulse Ox 98 01/23/18 19:00 Intake & Output 01/23/18 01/23/18 01/24/18 11:59 23:59 11:59 Intake Total 5582 965 9725 Output Total 200 300 Balance 1300 200 900 Intake: IV 1300 1200 D5-1/2NS+20 MEQ KCL - 20 700 1200 meq In 1,000 ml @ 100 mls /hr IV ASDIR [facility] Rx#: [id number] Oral 400 Output: Urine 200 300 Void 200 300 Other: Voiding Method Toilet Urinal Urinal # Unmeasured Voids Void 2 4 650 Bowel Movement No No Active Medications Albuterol Sulfate (Ventolin 0.083% Nebulizer Soln -) 1 amp NEB Q6H PRN PRN Reason: SHORT OF BREATH/WHEEZING Potassium Chloride/Dextrose/Sod Cl (D5-1/2ns+20 Meq Kcl -) 20 meq in 1,000 mls @ 100 mls/hr IV ASDIR [facility] Last Admin: 01/23/18 13:46 Dose: Not Given Levofloxacin (Levaquin 250 Mg Premixed Ivpb -) 250 mg in 50 mls @ 50 mls/hr IVPB DAILY [facility] Last Admin: 01/23/18 13:45 Dose: 50 mls/hr Non-Formulary Medication (Glycopyrrolate/Formoterol Fum [Bevespi Aerosphere Inhaler]) 5.9 gm IH DAILY [facility] Tamsulosin HCl (Flomax -) 0.4 mg PO DAILY@0830 [facility] Last Admin: 01/24/18 08:50 Dose: 0.4 mg Tiotropium [place] (Spiriva Respimat) 2 puff IH DAILY [facility] Last Admin: 01/23/18 13:49 Dose: 2 puff CBC, BMP 01/23/18 05:30 01/23/18 05:30 Microbiology 01/20/18 04:50 Blood Culture - Preliminary Blood - Peripheral Venous NO GROWTH OBTAINED AFTER 96 HOURS, INCUBATION TO CONTINUE FOR 1 DAYS. 01/20/18 05:00 Blood Culture - Preliminary Blood - Peripheral Venous NO GROWTH OBTAINED AFTER 96 HOURS, INCUBATION TO CONTINUE FOR 1 DAYS. Physical Exam. Constitutional: Yes: No Distress. comfortable. awake. Eyes: Yes: Conjunctiva Clear Neck: Yes: Supple Cardiovascular: Yes: Regular Rate and Rhythm Respiratory: Yes: CTA Bilaterally Gastrointestinal: Yes: Soft, non tender. bs + Edema: No Neurological: Yes: Alert Psychiatric: Yes: Alert Assessment/Plan Overall stable. continue present care. bp low-- will order echo h/h trending down will consult hematology also will follow. Problem List - Problems (1) BPH (benign prostatic hyperplasia) Code(s): N40.0 - BENIGN PROSTATIC HYPERPLASIA WITHOUT LOWER URINRY TRACT SYMP (2) COPD (chronic obstructive pulmonary disease) Code(s): J44.9 - CHRONIC OBSTRUCTIVE PULMONARY DISEASE, UNSPECIFIED (3) Cachexia Code(s): R64 - [place] (4) Weakness generalized Code(s): R53.1 - WEAKNESS
[2018-01-24] MEDS ORDERED: PT OWN MED DRAWER 7, Y5N ONE (10:22)
[2018-01-24] MEDS: TIOTROPIUM BROMIDE 2.5 MCG (SPIRIVA) RESPIMAT INHALER IH SCH (10:31)
--- NOTE | 2018-01-24 10:46 | CONSULT ---
Consult Consult Specialty:: Hematology-Oncology Referred by:: Dr. Chavira (PCP) Reason for Consultation:: Anemia - History of Present Illness Chief Complaint: weakness History of Present Illness: 82 y/o Irish speaking man with Asthma, COPD, Anemia and BPH who presented to the ED with abdominal pain, generalized weakness and constipation. He underwent colonoscopy/endoscopy which revealed gastritis and internal hemorrhoids. Pt denied any abdominal pain, c/o feeling cold. Had a bowel movement this morning. denies chest pain, palpitations, fevers, vomiting, nausea. - Past Medical History Pulmonary: Yes: Asthma Renal/: Yes: BPH - Past Surgical History Past Surgical History: Yes: None - Alcohol/Substance Use Hx Alcohol Use: No - Smoking History Smoking history: Never smoked Have you smoked in the past 12 months: No Aproximately how many cigarettes per day: 0 - Social History Usual Living Arrangement: With Spouse ADL: Independent Occupation: Worked as [employer] in [place] History of Recent Travel: No Home Medications - Allergies Allergies/Adverse Reactions: Allergies Allergy/AdvReac Type Severity Reaction Status Date / Time fish derived [Fish derived] Allergy Verified 07/31/17 16:41 Shellfish Allergy Verified 07/31/17 16:41 - Home Medications Home Medications: Ambulatory Orders Tiotropium [place] [Spiriva -] 18 mcg IH BID 03/17/13 Glycopyrrolate/Formoterol Fum [Bevespi Aerosphere Inhaler] 5.9 gm IH DAILY #1 hfa.aer.ad 07/31/17 Family Disease History - Family Disease History Family Disease History: Other: Father (: 97 of "Old Age"), Mother (: Age 40: "fever"), Brother (1: from alcoholic complications), Son (2, healthy), Daughter (5, healthy) Other Family History: No family history of colorectal cancer or other GI malignancy Physical Exam Vital Signs: Vital Signs Temperature 98.3 F 01/24/18 06:53 Pulse Rate 67 01/24/18 07:14 Respiratory Rate 18 01/24/18 07:14 Blood Pressure 98/51 L 01/24/18 07:14 O2 Sat by Pulse Oximetry (%) 98 01/23/18 19:00 Constitutional: Yes: Calm, Cachectic Eyes: Yes: Conjunctiva Clear HENT: Yes: Atraumatic, Normocephalic Neck: Yes: Supple, Trachea Midline. No: Thyromegaly Cardiovascular: Yes: S1, S2. No: Murmur Respiratory: Yes: Regular, CTA Bilaterally Gastrointestinal: Yes: Normal Bowel Sounds, Soft. No: Tenderness Musculoskeletal: No: Joint Stiffness, Joint Swelling, Muscle Pain Edema: No Neurological: Yes: Alert Labs: CBC, BMP 01/23/18 05:30 01/23/18 05:30 Assessment/Plan 82 yr old man with normocytic anemia found to have stool guiac + with internal hemorroids. outpatient labs in [address] Schwartz: Laboratory Tests 03/15/11 03/15/11 03/15/11 06:35 06:35 16:00 Cold Agglutinins Negative MCHC 33.5 RDW 14.6 03/16/11 02/03/15 02/03/15 06:00 11:25 11:25 ESR > 130 H Retic Count 0.76 Ferritin 281.320 Vitamin B12 689 Serum Folate 6 Immunoglobulin A IgG Ab 1571 02/03/15 11:25 ESR Retic Count Iron 13 L TIBC 193 L Iron Saturation 7 L Globulin 5.2 H Albumin/Globulin Ratio 0.6 L Dwjuh-6-Hevjmyhjr 0.4 Bvyoz-6-Cgssjsbag 0.9 Beta Globulins 1.1 Oixx-3-Kqlhhjyetqyiu 2.7 H Gamma Globulins 2.9 H IgG 3020 H IgA 524 H IgM 210 ANGE M-Christiano Not observed Free [place] LC, Quant 89.83 H Free [place] LC, Quant 114.34 H Free [place]/Lambda Ratio 0.79 82 yr old admitted for weakness with hx of chronic anemia. Problem list chronic normocytic anemia internal hemorrhoids HTN HLD A/Plan: previous w/u by Dr. Schwarzt listed above from 2014, will repeat anemia w/u: serum ferritin, iron, TIBC, vit B12, SPEP to r/o nutritional deficiencies and abnormal cell lines likely microscopic blood loss and underlying chronic disease contributing to anemia repeat h/h tomorrow
--- NOTE | 2018-01-24 13:59 | PN ---
Progress Note (short form) - Note Progress Note: PULMONARY Denies shortness of breath, cough or wheezing. No fevers or chills. Vital Signs Period Temp Pulse Resp BP Sys/[place] Pulse Ox Last 24 Hr 97.4 F-98.3 F 67-75 18-18 83-112/44-60 98 Gen: NAD at rest Heart: RRR Lung: distant breath sounds Abd: soft, nontender Ext: no edema CBC, BMP 01/23/18 05:30 01/23/18 05:30 Active Medications Albuterol Sulfate (Ventolin 0.083% Nebulizer Soln -) 1 amp NEB Q6H PRN PRN Reason: SHORT OF BREATH/WHEEZING Potassium Chloride/Dextrose/Sod Cl (D5-1/2ns+20 Meq Kcl -) 20 meq in 1,000 mls @ 100 mls/hr IV ASDIR [facility] Last Admin: 01/23/18 13:46 Dose: Not Given Levofloxacin (Levaquin 250 Mg Premixed Ivpb -) 250 mg in 50 mls @ 50 mls/hr IVPB DAILY [facility] Last Admin: 01/24/18 10:28 Dose: 50 mls/hr Non-Formulary Medication (Glycopyrrolate/Formoterol Fum [Bevespi Aerosphere Inhaler]) 5.9 gm IH DAILY [facility] Tamsulosin HCl (Flomax -) 0.4 mg PO DAILY@0830 [facility] Last Admin: 01/24/18 08:50 Dose: 0.4 mg Tiotropium [place] (Spiriva Respimat) 2 puff IH DAILY [facility] Last Admin: 01/24/18 10:31 Dose: 2 puff A/P Interstitial Lung Disease Bronchiectasis COPD Anemia - inhaled bronchodilators - on empiric antibiotics - O2 to keep SpO2>90% - DVT prophylaxis
--- NOTE | 2018-01-24 15:54 | ECHO ---
Name: CLAY NICKERSON Exam:Adult Echocardiogram Study Date: 01/24/2018 11:41 AM Age: 82 yrs Reason For Study: COPD Height: 61 in Weight: 85 lb BSA: 1.3 m2 MMode/2D Measurements & Calculations IVSd: 0.68 cm Ao root diam: 2.4 cm LVIDd: 4.2 cm LA dimension: 2.4 cm LVIDs: 2.7 cm LVPWd: 0.61 cm EDV(Teich): 76.7 ml TAPSE: 2.4 cm ESV(Teich): 28.0 ml Doppler Measurements & Calculations MV E max vu: 58.7 cm/sec Ao V2 max: 126.9 cm/sec MV A max vu: 82.4 cm/sec Ao max P.4 mmHg MV E/A: 0.71 AI P1/2t: 725.1 msec MV dec time: 0.24 sec AI max vu: 300.4 cm/sec LV V1 max P.3 mmHg AI max P.8 mmHg LV V1 max: 76.2 cm/sec AI dec slope: 121.3 cm/sec2 MR max vu: 343.9 cm/sec TR max vu: 223.6 cm/sec MR max P.4 mmHg TR max P.0 mmHg Med Peak E' Vu: 5.0 cm/sec Med E/e': 11.8 Lat Peak E' Vu: 4.5 cm/sec Lat E/e': 13.1 Left Ventricle The left ventricle is normal in size. The left ventricle is normal in structure and function. LVEF = 55-60%. E/A reversal consistent with but not diagnostic of poor LV compliance. Right Ventricle The right ventricle is severely dilated. The right ventricular systolic function is severely reduced. Atria The left atrial size is normal. The right atrium is mild to moderately dilated. Mitral Valve There is moderate mitral annular calcification. There is mild to moderate mitral regurgitation. Tricuspid Valve The tricuspid valve is not well visualized. The tricuspid valve is not well visualized, but is grossl y normal. There is moderate tricuspid regurgitation. Moderate to severe pulmonary hypertension. Right ventricul ar systolic pressure is elevated at 50-60mmHg. Aortic Valve There is moderate aortic sclerosis.;. Trace to mild aortic regurgitation. Interpretation Summary The left ventricle is normal in size. The left ventricle is normal in structure and function. LVEF = 55-60%. The right ventricle is severely dilated. The right ventricular systolic function is severely reduced. The left atrial size is normal. The right atrium is mild to moderately dilated. There is moderate aortic sclerosis.; Trace to mild aortic regurgitation. There is moderate mitral annular calcification. There is mild to moderate mitral regurgitation. There is moderate tricuspid regurgitation. Moderate to severe pulmonary hypertension. Right ventricular systolic pressure is elevated at 50-60mm Hg. MD Gabbie Gonzalez 01/24/2018 03:53 PM
--- NOTE | 2018-01-24 16:54 | PN ---
Teaching Attending Note Name of Resident: Ernesto Kelley ATTENDING PHYSICIAN STATEMENT I saw and evaluated the patient. I reviewed the resident's note and discussed the case with the resident. I agree with the resident's findings and plan as documented. SUBJECTIVE: patient seen and examined Anemia- NC/NC of long standing duration Guaic positive on admission Fe++ studies ordered Cachectic appearing male Last Vital Signs Temp Pulse Resp BP Pulse Ox 97.8 F 74 18 95/43 L 98 01/24/18 15:38 01/24/18 15:38 01/24/18 15:38 01/24/18 10:00 01/24/18 11:00 HEENT: NANCI, EOM Intact Oropharynx: No thrush, No mucositis Cor: RSR, No murmurs, No gallops Lungs: diminished breath sounds bilaterally Abd: Soft, Normal bowel sounds, No organomegaly Ext:No significant edema Skin: No rashes, Integument intact CBC, BMP 01/23/18 05:30 01/23/18 05:30 Current Medications Generic Name Dose Route Start Last Admin Trade Name Freq PRN Reason Stop Dose Admin Albuterol Sulfate 1 amp 01/20/18 10:00 Ventolin 0.083% Nebulizer Soln - NEB Q6H PRN SHORT OF BREATH/WHEEZING Potassium Chloride/Dextrose/Sod Cl 20 meq in 1,000 mls @ 100 mls/hr 01/20/18 13:00 01/23/18 13:46 D5-1/2ns+20 Meq Kcl - IV Not Given ASDIR [facility] Levofloxacin 250 mg in 50 mls @ 50 mls/hr 01/22/18 10:00 01/24/18 10:28 Levaquin 250 Mg Premixed Ivpb - IVPB 50 mls/hr DAILY [facility] Administration Non-Formulary Medication 5.9 gm 01/20/18 10:00 Glycopyrrolate/Formoterol Fum [Bevespi Aerosphere Inhaler] IH DAILY [facility] Tamsulosin HCl 0.4 mg 01/21/18 08:30 01/24/18 08:50 Flomax - PO 0.4 mg DAILY@0830 [facility] Administration Tiotropium [place] 2 puff 01/21/18 10:00 01/24/18 10:31 Spiriva Respimat IH 2 puff DAILY [facility] Administration Impression: Likely chronic disease with component of blood loss Await studies Will check labs in A.M and will need to be transfused . OBJECTIVE: ASSESSMENT AND PLAN:
--- NOTE | 2018-01-24 17:20 | PATH ---
Surgical Pathology Report Patient Name: CLAY NICKERSON Med. Rec. #: [id number] /Age/Gender: 1935 (Age: 82) / M Account: [id number] Location: [facility] MED/SURG Taken: 01/23/2018 Received: 01/23/2018 Reported: 01/24/2018 Physicians: Maegan Jameson MD Specimen(s) Received BX STOMACH Clinical History Anemia Postoperative diagnosis: Gastritis, hemorrhoids Final Diagnosis STOMACH, BIOPSY: GASTRIC BODY MUCOSA WITH SEVERE CHRONIC ACTIVE GASTRITIS. IMMUNOHISTOCHEMICAL STAIN FOR H. PYLORI IS POSITIVE (NUMEROUS). Electronically Signed Vee Huang M.D. Gross Description Received in formalin, labeled "stomach biopsy" are 3 brandon, irregular portions of soft tissue ranging from 0.2-0.6 cm. in greatest dimension. The specimens are submitted in toto in one cassette. 01/23/201801/23/2018
[2018-01-25 07:52] LABS: BASO % 1.3 % (0-2.0); EOS % 5.1 % (0-4.5); HEMATOCRIT 21.7 % (35.4-49); HEMOGLOBIN 7.4 GM/dL (11.7-16.9); LYMPH % 26.5 % (8-40); MCH 27.9 pg (25.7-33.7); MCHC 34.1 g/dl (32.0-35.9); MEAN PLT VOLUME 7.2 fl (7.5-11.1); MONO % 10.1 % (3.8-10.2); PLATELET COUNT 416 K/MM3 (134-434); RBC 2.64 M/mm3 (4.00-5.60); RDW 17.5 % (11.9-15.9); WHITE BLOOD COUNT 4.6 K/mm3 (4.0-10.0)
[2018-01-25 08:15] LABS: ALBUMIN 1.8 g/dl (3.4-5.0); ALK PHOS 88 U/L (45-117); ANION GAP 6 MMOL/L (8-16); BILIRUBIN,TOTAL 0.2 mg/dL (0.2-1); BLOOD UREA NITROGEN 8 mg/dL (7-18); CALCIUM 7.6 mg/dL (8.5-10.1); CHLORIDE 97 mmol/L (98-107); CO2 30 mmol/L (21-32); CREATININE 0.7 mg/dL (0.55-1.3); GLUCOSE,RANDOM 87 mg/dL (74-106); LDH 106 U/L (87-246); SGOT/AST 17 U/L (15-37); SGPT/ALT 13 U/L (13-61); SODIUM 133 mmol/L (136-145); TOT PROT 6.7 g/dl (6.4-8.2)
[2018-01-25] MEDS: D5-1/2NS+20 MEQ KCL - 20 MEQ/1,000 ML INFUS.BAG IV SCH ×2 (08:52→13:36)
[2018-01-25] MEDS: TAMSULOSIN HCL 0.4 MG CAP PO SCH (09:11)
--- NOTE | 2018-01-25 10:01 | PN ---
Progress Note (short form) - Note Progress Note: Vital Signs - 24 hr 01/24/18 01/24/18 01/24/18 11:00 15:38 16:25 Temperature 97.8 F Pulse Rate 74 81 Respiratory 18 18 18 Rate Blood Pressure 101/60 O2 Sat by Pulse 98 Oximetry (%) 01/24/18 01/25/18 19:00 06:00 Temperature 97.6 F Pulse Rate 74 Respiratory 18 18 Rate Blood Pressure 82/47 L O2 Sat by Pulse 98 Oximetry (%) Current Medications Generic Name Dose Route Start Last Admin Trade Name Freq PRN Reason Stop Dose Admin Albuterol Sulfate 1 amp 01/20/18 10:00 Ventolin 0.083% Nebulizer Soln - NEB Q6H PRN SHORT OF BREATH/WHEEZING Potassium Chloride/Dextrose/Sod Cl 20 meq in 1,000 mls @ 100 mls/hr 01/20/18 13:00 01/25/18 08:52 D5-1/2ns+20 Meq Kcl - IV 100 mls/hr ASDIR CORAL Administration Levofloxacin 250 mg in 50 mls @ 50 mls/hr 01/22/18 10:00 01/24/18 10:28 Levaquin 250 Mg Premixed Ivpb - IVPB 50 mls/hr DAILY CORAL Administration Tamsulosin HCl 0.4 mg 01/21/18 08:30 01/25/18 09:11 Flomax - PO Not Given DAILY@0830 CORAL Tiotropium [place] 2 puff 01/21/18 10:00 01/24/18 10:31 Spiriva Respimat IH 2 puff DAILY CORAL Administration Laboratory Results - last 24 hr 01/23/18 01/25/18 01/25/18 05:30 06:15 06:15 WBC 4.6 RBC 2.64 L Hgb 7.4 L Hct 21.7 L MCV 82.0 MCH 27.9 MCHC 34.1 RDW 17.5 H Plt Count 416 MPV 7.2 L Absolute Neuts (auto) 2.6 Neutrophils % 57.0 Lymphocytes % 26.5 D Monocytes % 10.1 Eosinophils % 5.1 H D Basophils % 1.3 Nucleated RBC % 0 Retic Count Sodium 134 L 133 L Potassium 4.2 4.0 Chloride 101 97 L Carbon Dioxide 28 30 Anion Gap 5 L 6 L BUN 5 L 8 Creatinine 0.6 0.7 Creat Clearance w eGFR > 60 > 60 Random Glucose 102 87 Calcium 7.6 L 7.6 L Ferritin 315.6 Total Bilirubin 0.3 0.2 AST 25 17 ALT 14 13 Alkaline Phosphatase 90 88 LD Total 106 Total Protein 6.5 6.7 Albumin 1.8 L 1.8 L Vitamin B12 1121 H 01/25/18 06:15 WBC RBC Hgb Hct MCV MCH MCHC RDW Plt Count MPV Absolute Neuts (auto) Neutrophils % Lymphocytes % Monocytes % Eosinophils % Basophils % Nucleated RBC % Retic Count 1.06 D Sodium Potassium Chloride Carbon Dioxide Anion Gap BUN Creatinine Creat Clearance w eGFR Random Glucose Calcium Ferritin Total Bilirubin AST ALT Alkaline Phosphatase LD Total Total Protein Albumin Vitamin B12 see dc summary
[2018-01-25] MEDS ORDERED: FUROSEMIDE 40 MG/4 ML INJECTABLE VIAL IVPUSH ONE (10:19)
[2018-01-25] MEDS: TIOTROPIUM BROMIDE 2.5 MCG (SPIRIVA) RESPIMAT INHALER IH SCH (11:02)
[2018-01-25] MEDS: PANTOPRAZOLE 40 MG TABLET (FP) PO SCH ×2 (11:03→22:19)
[2018-01-25] MEDS: AMOXICILLIN 500 MG CAPSULE (FP) PO SCH ×2 (11:03→22:19)
[2018-01-25] MEDS: CLARITHROMYCIN 500 MG TABLET (UD) PO SCH ×2 (13:34→22:19)
--- NOTE | 2018-01-25 14:04 | DS ---
Physical Examination Vital Signs: Vital Signs Temperature 97.5 F L 01/25/18 10:00 Pulse Rate 77 01/25/18 10:00 Respiratory Rate 20 01/25/18 10:00 Blood Pressure 85/50 L 01/25/18 10:00 O2 Sat by Pulse Oximetry (%) 95 01/25/18 09:00 Constitutional: Yes: No Distress, Calm Cardiovascular: Yes: Regular Rate and Rhythm Respiratory: Yes: CTA Bilaterally Gastrointestinal: Yes: Normal Bowel Sounds, Soft. No: Tenderness Edema: No Labs: CBC, BMP 01/25/18 06:15 01/25/18 06:15 Discharge Summary Reason For Visit: WEAKNESS,CONSTIPATION Current Active Problems Asthma (Acute) BPH (benign prostatic hyperplasia) (Acute) Bronchiectasis (Acute) COPD (chronic obstructive pulmonary disease) (Acute) Cachexia (Acute) Interstitial lung disease (Acute) Weakness generalized (Acute) Hospital Course: Admitted for weakness Has anemia seen by Hematology and GI EGD-- chronic gastritis , H pylori positive colonoscopy -- small internal hemorrhoids Pt started on Amoxicillin, Biaxin and protonix for 14 days - starting today received one unit PRBC today stable for dc to [place] Condition: Improved - Instructions Diet, Activity, Other Instructions: follow up with GI - DR Rico after discharge from [place] Referrals: Alec Chavira MD [Primary Care Provider] - Disposition: HALF-WAY FACILITY - Home Medications Comprehensive Discharge Medication List: Ambulatory Orders Tiotropium [place] [Spiriva -] 18 mcg IH BID 03/17/13 Glycopyrrolate/Formoterol Fum [Bevespi Aerosphere Inhaler] 5.9 gm IH DAILY #1 hfa.aer.ad 07/31/17
--- NOTE | 2018-01-25 14:12 | PN ---
Progress Note (short form) - Note Progress Note: PULMONARY Denies shortness of breath, cough or wheezing. No fevers or chills. Vital Signs Period Temp Pulse Resp BP Sys/Freitas Pulse Ox Last 24 Hr 97.5 F-97.8 F 74-81 18-20 82-101/47-60 95-98 Gen: NAD at rest Heart: RRR Lung: distant breath sounds Abd: soft, nontender Ext: no edema CBC, BMP 01/25/18 06:15 01/25/18 06:15 Active Medications Albuterol Sulfate (Ventolin 0.083% Nebulizer Soln -) 1 amp NEB Q6H PRN PRN Reason: SHORT OF BREATH/WHEEZING Amoxicillin (Amoxicillin -) 1,000 mg PO BID [facility] Last Admin: 01/25/18 11:03 Dose: 1,000 mg Clarithromycin (Biaxin -) 500 mg PO BID [facility] Last Admin: 01/25/18 13:34 Dose: 500 mg Potassium Chloride/Dextrose/Sod Cl (D5-1/2ns+20 Meq Kcl -) 20 meq in 1,000 mls @ 100 mls/hr IV ASDIR [facility] Last Admin: 01/25/18 13:36 Dose: Not Given Pantoprazole Sodium (Protonix -) 40 mg PO BID [facility] Last Admin: 01/25/18 11:03 Dose: 40 mg Tamsulosin HCl (Flomax -) 0.4 mg PO DAILY@0830 [facility] Last Admin: 01/25/18 09:11 Dose: Not Given Tiotropium [place] (Spiriva Respimat) 2 puff IH DAILY [facility] Last Admin: 01/25/18 11:02 Dose: 2 puff A/P Interstitial Lung Disease Bronchiectasis COPD Anemia - inhaled bronchodilators - complete empiric antibiotics - O2 to keep SpO2>90% - DVT prophylaxis
--- NOTE | 2018-01-25 17:55 | PN ---
Progress Note (short form) - Note Progress Note: Patient seen and examined Receiving packed cells. Work up still awaited Last Vital Signs Temp Pulse Resp BP Pulse Ox 97.1 F L 77 18 99/50 L 95 01/25/18 15:17 01/25/18 15:17 01/25/18 15:17 01/25/18 15:17 01/25/18 09:00 HEENT: NANCI, EOM Intact Cor: RSR, No murmurs, No gallops Lungs: diminished breath sounds Ext:No significant edema Skin: No rashes, Integument intact CBC, BMP 01/25/18 06:15 01/25/18 06:15 Current Medications Generic Name Dose Route Start Last Admin Trade Name Freq PRN Reason Stop Dose Admin Albuterol Sulfate 1 amp 01/20/18 10:00 Ventolin 0.083% Nebulizer Soln - NEB Q6H PRN SHORT OF BREATH/WHEEZING Amoxicillin 1,000 mg 01/25/18 10:45 01/25/18 11:03 Amoxicillin - PO 1,000 mg BID CORAL Administration Clarithromycin 500 mg 01/25/18 10:45 01/25/18 13:34 Biaxin - PO 500 mg BID CORAL Administration Potassium Chloride/Dextrose/Sod Cl 20 meq in 1,000 mls @ 100 mls/hr 01/20/18 13:00 01/25/18 13:36 D5-1/2ns+20 Meq Kcl - IV Not Given ASDIR CORAL Pantoprazole Sodium 40 mg 01/25/18 10:45 01/25/18 11:03 Protonix - PO 40 mg BID CORAL Administration Tamsulosin HCl 0.4 mg 01/21/18 08:30 01/25/18 09:11 Flomax - PO Not Given DAILY@0830 CORAL Tiotropium [place] 2 puff 01/21/18 10:00 01/25/18 11:02 Spiriva Respimat IH 2 puff DAILY CORAL Administration Anemia- awaiting work up Receiving packed cells.
[2018-01-25] MEDS ORDERED: PT OWN MED DRAWER 7, Y5N ONE (21:29)
[2018-01-26 03:17] LABS: HBSAG SCREEN Negative (Negative); HEP A AB, IGM Negative (Negative); HEP B CORE AB, TOT Negative (Negative)
[2018-01-26 08:31] LABS: HEMATOCRIT 27.5 % (35.4-49); HEMOGLOBIN 9.6 GM/dL (11.7-16.9); MCH 28.7 pg (25.7-33.7); MCHC 34.8 g/dl (32.0-35.9); MEAN CELL VOLUME 82.5 fl (80-96); MEAN PLT VOLUME 7.3 fl (7.5-11.1); PLATELET COUNT 402 K/MM3 (134-434); RBC 3.33 M/mm3 (4.00-5.60); RDW 16.3 % (11.9-15.9); WHITE BLOOD COUNT 4.1 K/mm3 (4.0-10.0)
[2018-01-26] MEDS: TAMSULOSIN HCL 0.4 MG CAP PO SCH (09:01)
[2018-01-26] MEDS ORDERED: PT OWN MED DRAWER 7, Y5N ONE (09:50)
[2018-01-26] MEDS: PANTOPRAZOLE 40 MG TABLET (FP) PO SCH (09:52)
[2018-01-26] MEDS: CLARITHROMYCIN 500 MG TABLET (UD) PO SCH (09:52)
[2018-01-26] MEDS: AMOXICILLIN 500 MG CAPSULE (FP) PO SCH (09:52)
[2018-01-26] MEDS: TIOTROPIUM BROMIDE 2.5 MCG (SPIRIVA) RESPIMAT INHALER IH SCH (09:53)
--- NOTE | 2018-01-26 10:06 | PN ---
Progress Note (short form) - Note Progress Note: PULMONARY Denies shortness of breath, cough or wheezing. No fevers or chills. Vital Signs Period Temp Pulse Resp BP Sys/Freitas Pulse Ox Last 24 Hr 97.1 F-97.6 F 71-89 18-20 91-115/49-52 98 Gen: NAD at rest Heart: RRR Lung: distant breath sounds Abd: soft, nontender Ext: no edema CBC, BMP 01/26/18 06:30 01/25/18 06:15 Active Medications Albuterol Sulfate (Ventolin 0.083% Nebulizer Soln -) 1 amp NEB Q6H PRN PRN Reason: SHORT OF BREATH/WHEEZING Amoxicillin (Amoxicillin -) 1,[address] [facility] Last Admin: 01/26/18 09:52 Dose: 1,000 mg Clarithromycin (Biaxin -) [address] [facility] Last Admin: 01/26/18 09:52 Dose: 500 mg Pantoprazole Sodium (Protonix -) [address] [facility] Last Admin: 01/26/18 09:52 Dose: 40 mg Tamsulosin HCl (Flomax -) 0.4 mg PO DAILY@0830 [facility] Last Admin: 01/26/18 09:01 Dose: 0.4 mg Tiotropium [place] (Spiriva Respimat) [address] [facility] Last Admin: 01/26/18 09:53 Dose: 2 puff A/P Interstitial Lung Disease Bronchiectasis COPD Anemia - inhaled bronchodilators - complete empiric antibiotics - O2 to keep SpO2>90% - DVT prophylaxis - d/c planning in progress
--- NOTE | 2018-01-26 12:03 | PN ---
Progress Note (short form) - Note Progress Note: Vital Signs - 24 hr s/p PRBC Feels well sleepy family at bedside 01/25/18 01/25/18 01/25/18 15:17 19:10 21:00 Temperature 97.1 F L 97.3 F L Pulse Rate 77 80 Respiratory 18 18 Rate Blood Pressure 99/50 L 93/51 L O2 Sat by Pulse 98 Oximetry (%) 01/25/18 01/26/18 01/26/18 22:00 05:57 09:58 Temperature 97.6 F 97.6 F 97.5 F L Pulse Rate 72 71 89 Respiratory 20 20 20 Rate Blood Pressure 91/52 L 104/51 L 115/49 L O2 Sat by Pulse Oximetry (%) Current Medications Generic Name Dose Route Start Last Admin Trade Name Freq PRN Reason Stop Dose Admin Albuterol Sulfate 1 amp 01/20/18 10:00 Ventolin 0.083% Nebulizer Soln - NEB Q6H PRN SHORT OF BREATH/WHEEZING Amoxicillin 1,000 mg 01/25/18 10:45 01/26/18 09:52 Amoxicillin - PO 1,000 mg BID CORAL Administration Clarithromycin 500 mg 01/25/18 10:45 01/26/18 09:52 Biaxin - PO 500 mg BID CORAL Administration Pantoprazole Sodium 40 mg 01/25/18 10:45 01/26/18 09:52 Protonix - PO 40 mg BID CORAL Administration Tamsulosin HCl 0.4 mg 01/21/18 08:30 01/26/18 09:01 Flomax - PO 0.4 mg DAILY@0830 CORAL Administration Tiotropium [place] 2 puff 01/21/18 10:00 01/26/18 09:53 Spiriva Respimat IH 2 puff DAILY CORAL Administration Laboratory Results - last 24 hr 01/22/18 01/25/18 01/25/18 06:00 10:35 10:40 WBC RBC Hgb Hct MCV MCH MCHC RDW Plt Count MPV Hep A IgM Ab Confirm Negative Hepatitis A Ab Total Positive H Hep Bs Antigen Negative Hep Bs Antibody Non reactive Hep B Core Total Ab Negative Blood Type O POSITIVE O POSITIVE Antibody Screen No Result Required. Prewarmed Antibody Srcn Negative Crossmatch See Detail 01/25/18 01/26/18 10:40 06:30 WBC 4.1 RBC 3.33 L Hgb 9.6 L Hct 27.5 L D MCV 82.5 MCH 28.7 MCHC 34.8 RDW 16.3 H Plt Count 402 MPV 7.3 L Hep A IgM Ab Confirm Hepatitis A Ab Total Hep Bs Antigen Hep Bs Antibody Hep B Core Total Ab Blood Type Cancelled Antibody Screen Cancelled Prewarmed Antibody Srcn Crossmatch See Detail s1 s2 RRR Lungs clear Abd- soft, NT No edema PLAN S/P 1 unit PRBC HB better further anemia work up as outpt stable for dc to [facility] complete Hpylori course Problem List - Problems (1) Asthma Code(s): J45.909 - UNSPECIFIED ASTHMA, UNCOMPLICATED (2) BPH (benign prostatic hyperplasia) Code(s): N40.0 - BENIGN PROSTATIC HYPERPLASIA WITHOUT LOWER URINRY TRACT SYMP (3) COPD (chronic obstructive pulmonary disease) Code(s): J44.9 - CHRONIC OBSTRUCTIVE PULMONARY DISEASE, UNSPECIFIED (4) Cachexia Code(s): R64 - CACHEXIA (5) Interstitial lung disease Code(s): J84.9 - INTERSTITIAL PULMONARY DISEASE, UNSPECIFIED (6) Weakness generalized Code(s): R53.1 - WEAKNESS
[2018-01-26 14:18] LABS: SERUM IRON SATURATION 15; UIBC 123
[2018-01-26 14:19] LABS: TOTAL IRON BINDING CAPACITY 144
[2018-01-26 14:32] VITALS: BP 78/46; PULSE 87; TEMP 97.7
== END 2018-01-26 14:59 | DRG 811 ==
LOC: JER 00:19 → JERBED 04:04 → J8W 12:23 → OBSVTOIN 01-24 09:21
PROVIDERS: ADMIT Internal Medicine; ATTEND Internal Medicine
PROC: 0DJD8ZZ Inspection of Lower Intestinal Tract, Via Natural or Artificial Opening Endoscopic (ICD-10-PCS; principal; 2018-01-24)
PROC: 0DB68ZX Excision of Stomach, Via Natural or Artificial Opening Endoscopic, Diagnostic (ICD-10-PCS; 2018-01-24)
PROC: 30233N1 Transfusion of Nonautologous Red Blood Cells into Peripheral Vein, Percutaneous Approach (ICD-10-PCS; 2018-01-25)
DX: D64.9 Anemia, unspecified (principal); E43 Unspecified severe protein-calorie malnutrition; R64 Cachexia; Z68.1 Body mass index [BMI] 19.9 or less, adult; J84.9 Interstitial pulmonary disease, unspecified; J44.9 Chronic obstructive pulmonary disease, unspecified; N40.0 Benign prostatic hyperplasia without lower urinary tract symptoms; K59.00 Constipation, unspecified; E86.0 Dehydration; K64.8 Other hemorrhoids; K44.9 Diaphragmatic hernia without obstruction or gangrene; K29.50 Unspecified chronic gastritis without bleeding; B96.81 Helicobacter pylori [H. pylori] as the cause of diseases classified elsewhere
CPT/HCPCS: 36415; 36430; 36511; 71045-TC-FY; 71250-TC; 74018-TC-FY; 74176-TC; 76705-TC; 80053; 81003; 81015; 82272; 82607; 82728; 83540; 83550; 83605; 83615; 84155; 84165; 84484; 85025; 85027; 85044; 86704; 86706; 86708; 86803; 86850; 86870; 86900; 86901; 86922; 87040; 87340; 87804; 88305-TC; 88342-TC; 90688; 93005; 93010; 93306-TC; 97116-GP; 97161-GP; 99284-25; G0008; G0378; J7030; P9038; P9058; Q9967

== ENCOUNTER 2018-07-11 11:58 | Emergency (ER) | payer MEDICARE, OTHER ==
[2018-07-11 12:09] VITALS: BMI 14.5
--- NOTE | 2018-07-11 12:47 | PDOC ---
History of Present Illness - General Chief Complaint: Shortness of Breath Stated Complaint: SOB\\BACK PAIN\\CHEST PAIN Time Seen by Provider: 07/11/18 12:43 - History of Present Illness Initial Comments: 83yo M with PMH of asthma, COPD, interstitial lung disease, chronic gastritis , H pylori, cachexia, BPH sent by his primary care doctor for evaluation of shortness of breath. Patient's daughter is at the bedside providing collateral history. Patient has had shortness of breath, cough, chest pain, dysphagia, back pain, dizziness, and weakness for the past 1-2 weeks which prompted his daughter to bring him to his primary care doctor's office. His daughter describes that his breathing sounds like whistling. Patient has had a longtime cough which has progressively worsened and is productive of white sputum. He has not been using breathing treatments at home because he has not asked for them. Not on home oxygen. Chest pain is described as a "pressure" and is located across his chest. Worsens with certain movements and is non-radiating. Denies cardiac history and has never seen a veterinarian laboratory animal care. No nausea, vomiting, or diaphoresis. Nonsmoker. PO intake has been poor. Endorses chills. No fevers or abdominal pain. PCP: Dr. Piper. Past History - Past Medical History Allergies/Adverse Reactions: Allergies Allergy/AdvReac Type Severity Reaction Status Date / Time fish derived [Fish derived] Allergy Verified 07/11/18 12:54 Shellfish Allergy Verified 07/11/18 12:54 Home Medications: Ambulatory Orders Tiotropium [place] [Spiriva] 18 mcg IH BID 03/17/13 Albuterol 0.083% Nebulizer [place] [Ventolin 0.083% Nebulizer Soln -] 1 amp NEB Q6H PRN #20 amp 01/25/18 Clarithromycin [Biaxin -] 500 mg PO BID #28 tablet 01/25/18 Pantoprazole Sodium [Protonix -] 40 mg PO BID #28 tablet.ec 01/25/18 Tamsulosin HCl [Flomax -] 0.4 mg PO DAILY@0830 #30 cap.er.24h 01/25/18 Azithromycin [Zithromax Tri-Nelson (3 DAYS) -] 500 mg PO DAILY #3 tablet 07/11/18 Methylprednisolone [Medrol Dose Nelson] 4 mg PO ASDIR #21 tablet 07/11/18 Anemia: Yes Asthma: Yes COPD: Yes - Immunization History Immunization Up to Date: No - Suicide/Smoking/Psychosocial Hx Smoking Status: No Smoking History: Never smoked Have you smoked in the past 12 months: No Number of Cigarettes Smoked Daily: 0 Information on smoking cessation initiated: No Hx Alcohol Use: No Drug/Substance Use Hx: No Substance Use Type: None Review of Systems - Review of Systems Comments:: Constitutional: no fever, no chills HEENT: no throat pain, +dysphagia (swallowing pills) Cardiovascular: +chest pain, no palpitations Respiratory: +cough, +shortness of breath Gastrointestinal: no abdominal pain, no nausea Genitourinary: no dysuria, no frequency Musculoskeletal: no myalgia, no arthralgia Skin: no rash, no itching Neurologic: no headache, +weakness *Physical Exam - Vital Signs Last Vital Signs Temp Pulse Resp BP Pulse Ox 98.6 F 97 H 16 117/73 94 L 07/11/18 12:03 07/11/18 12:03 07/11/18 12:03 07/11/18 12:03 07/11/18 12:03 - Physical Exam Comments: General: Awake, alert, and fully oriented, in no acute distress, cachectic Head: No signs of trauma Eyes: EOMI, sclera anicteric ENT: Moist mucus membranes Neck: Normal ROM, supple Lungs: Lungs clear, decreased breath sounds at the basis Cardio: Regular rhythm, S1 and S2 present Abdomen: Soft, nontender. No guarding, no rebound, no masses Extremities: Normal range of motion, Distal pulses present, No calf tenderness SKIN: Warm, Dry, normal turgor Neurologic: Cranial nerves II through XII grossly intact. Normal speech ED Treatment Course - LABORATORY CBC & Chemistry Diagram: 07/11/18 13:15 07/11/18 13:15 - RADIOLOGY Radiology Studies Ordered: Category Date Time Status CHEST PA & LAT [RAD] Stat Radiology 07/11/18 12:43 Ordered Medical Decision Making - Medical Decision Making 83yo M with PMH of asthma, COPD, interstitial lung disease, chronic gastritis , H pylori, cachexia, BPH sent by his primary care doctor for evaluation of shortness of breath. Labs, EKG, CXR 07/11/18 13:11 CBC WBC 4.8 K/mm3 (4.0-10.0) 07/11/18 13:15 RBC 3.59 M/mm3 (4.00-5.60) L 07/11/18 13:15 Hgb 11.6 GM/dL (11.7-16.9) L 07/11/18 13:15 Hct 35.0 % (35.4-49) L D 07/11/18 13:15 MCV 97.5 fl (80-96) H 07/11/18 13:15 MCH 32.3 pg (25.7-33.7) D 07/11/18 13:15 MCHC 33.1 g/dl (32.0-35.9) 07/11/18 13:15 RDW 14.6 % (11.9-15.9) D 07/11/18 13:15 Plt Count 193 K/MM3 (134-434) D 07/11/18 13:15 MPV 8.1 fl (7.5-11.1) D 07/11/18 13:15 Absolute Neuts (auto) 3.3 K/mm3 (1.5-8.0) 07/11/18 13:15 Neutrophils % 68.6 % (42.8-82.8) D 07/11/18 13:15 Lymphocytes % 21.7 % (8-40) 07/11/18 13:15 Monocytes % 6.4 % (3.8-10.2) 07/11/18 13:15 Eosinophils % 2.4 % (0-4.5) 07/11/18 13:15 Basophils % 0.9 % (0-2.0) 07/11/18 13:15 Nucleated RBC % 0 % (0-0) 07/11/18 13:15 Mild anemia No leukocytosis CMP Sodium 137 mmol/L (136-145) 07/11/18 13:15 Potassium 4.2 mmol/L (3.5-5.1) 07/11/18 13:15 Chloride 100 mmol/L (98-107) 07/11/18 13:15 Carbon Dioxide 33 mmol/L (21-32) H 07/11/18 13:15 Anion Gap 4 MMOL/L (8-16) L 07/11/18 13:15 BUN 20 mg/dL (7-18) H 07/11/18 13:15 Creatinine 0.8 mg/dL (0.55-1.3) 07/11/18 13:15 Est GFR (CKD-EPI)AfAm 95.07 07/11/18 13:15 Est GFR (CKD-EPI)NonAf 82.03 07/11/18 13:15 Random Glucose 84 mg/dL (74-106) 07/11/18 13:15 Calcium 8.7 mg/dL (8.5-10.1) 07/11/18 13:15 Total Bilirubin 0.3 mg/dL (0.2-1) 07/11/18 13:15 AST 12 U/L (15-37) L 07/11/18 13:15 ALT 13 U/L (13-61) 07/11/18 13:15 Alkaline Phosphatase 95 U/L (45-117) 07/11/18 13:15 Creatine Kinase 36 U/L (26-308) 07/11/18 13:15 Troponin I < 0.02 ng/ml (0.00-0.05) 07/11/18 13:15 Total Protein 8.4 g/dl (6.4-8.2) H 07/11/18 13:15 Albumin 3.3 g/dl (3.4-5.0) L 07/11/18 13:15 Electrolytes unremarkable Tpn undetectable EKG: Rate 97, QTc 457, sinus with PVCs CXR: "Unchanged contour of the cardiomediastinal silhouette. No pneumothorax, or large pleural effusion is seen. Extensive bilateral apical pleural thickening. No evidence of vascular congestive changes. Chronic interstitial lung disease, bronchiectasis. Demineralized osseous structures. No evidence of lobar consolidations. Please refer to the CT of the chest January 20, 2018 for additional findings." Discussed case with Dr. Piper who recommended solu-medrol and duonebs 07/11/18 14:18 Patient stated he felt better after medical treatment. Requesting to go home as he is not inclined to being admitted. Prescriptions sent to pharmacy Patient will follow-up with Dr. Piper on Tuesday. *DC/Admit/Observation/Transfer Diagnosis at time of Disposition: COPD (chronic obstructive pulmonary disease), Interstitial lung disease - Discharge Dispostion Condition at time of disposition: Stable - Prescriptions Prescriptions: Azithromycin [Zithromax Tri-Nelson (3 DAYS) -] 500 mg PO DAILY #3 tablet Methylprednisolone [Medrol Dose [place]] 4 mg PO ASDIR #21 tablet - Referrals - Patient Instructions Printed Discharge Instructions: DI for Chronic Obstructive Pulmonary Disease Additional Instructions: You were seen in the emergency department for shortness of breath. We did blood work which was normal. Your Chest X-Ray was at baseline. You received steroids and a breathing treatment which improved your symptoms. Follow-up with you primary care physician next Monday 07/17 to discuss this ED visit and to further evaluate your symptoms. Your care is not complete until you do so. Call and make an appointment. Dr. Piper said she wants to see you on that day. We sent prescriptions to your pharmacy. Take as instructed. Continue taking home medications as prescribed. Immediate medical attention is required if you experience: difficulty breathing , unrelieved by medications, tightness in chest, unrelieved by medications, have focal numbness or weakness, chest pain, shortness of breath, or any new or concerning symptoms. If you think you are having an emergency, call for emergency medical services or present to the emergency department right away. If you think you have an emergency, call for medical help right away. - Post Discharge Activity
[2018-07-11 13:42] LABS: BASO % 0.9 % (0-2.0); EOS % 2.4 % (0-4.5); HEMOGLOBIN 11.6 GM/dL (11.7-16.9); LYMPH % 21.7 % (8-40); MCH 32.3 pg (25.7-33.7); MCHC 33.1 g/dl (32.0-35.9); MEAN CELL VOLUME 97.5 fl (80-96); MEAN PLT VOLUME 8.1 fl (7.5-11.1); MONO % 6.4 % (3.8-10.2); NEUT % 68.6 % (42.8-82.8); PLATELET COUNT 193 K/MM3 (134-434); RBC 3.59 M/mm3 (4.00-5.60); RDW 14.6 % (11.9-15.9); WHITE BLOOD COUNT 4.8 K/mm3 (4.0-10.0)
[2018-07-11 14:04] LABS: ALBUMIN 3.3 g/dl (3.4-5.0); BILIRUBIN,TOTAL 0.3 mg/dL (0.2-1); CALCIUM 8.7 mg/dL (8.5-10.1); CREATININE 0.8 mg/dL (0.55-1.3); POTASSIUM 4.2 mmol/L (3.5-5.1); TOT PROT 8.4 g/dl (6.4-8.2)
[2018-07-11] MEDS ORDERED: ALBUTEROL SO4 2.5/IPRATROPIUM 0.5 INH SOL 3 ML VIAL.NEB. NEB ONE ×2 (14:17→14:30)
[2018-07-11] MEDS ORDERED: methylPREDNISolone NA SUCC 125 MG/2 ML VIAL IVPUSH ONE (14:17)
[2018-07-11 14:18] LABS: INR 1.05 (0.83-1.09); PROTHROMBIN TIME (PATIENT) 12.4 SEC (9.7-13.0)
[2018-07-11] MEDS ORDERED: methylPREDNISolone NA SUCC 125 MG/2 ML VIAL ONE (14:22)
--- NOTE | 2018-07-11 14:33 | PDOC ---
Documentation entered by Yue Pulido SCRIBE, acting as scribe for Moises Sumner MD. Moises Sumner MD: This documentation has been prepared by the Tess hair Adrianna, SCRIBE, under my direction and personally reviewed by me in its entirety. I confirm that the documentation accurately reflects all work, treatment, procedures, and medical decision making performed by me. Attending Attestation - Resident Resident Name: Brandie Berry - ED Attending Attestation I have performed the following: I have examined & evaluated the patient, The case was reviewed & discussed with the resident, I agree w/resident's findings & plan - HPI HPI: 07/11/18 14:18 83-year-old male with history of chronic interstitial lung disease not on home oxygen, and usual state of health until 2 weeks ago when began developing increasing dry cough occasionally with white sputum, otherwise no dyspnea or fevers or chills. Constant chest discomfort worse with cough, not exertional. Seen by PCP Dr. Piper given his symptoms, referred to ED for evaluation. No recent travel, no history of recurring pneumonia, denies any leg swelling or exertional chest pain or pressure. - Physicial Exam PE: 07/11/18 14:19 Vital signs as noted, O2 sat 97% on room air Well-appearing, conversant, thin elderly gentleman speaking full sentences. No cough during history or exam. Heart is regular with occasional premature beat, subtle 2/6 systolic ejection murmur Distant breath sounds without crackles or wheezing, symmetric abd benign no edema/calf ttp - Medical Decision Making 07/11/18 14:22 83y/o M with chronic lung disease, slight cough for 2 weeks here for evaluation sent from PCP office. VSS, no red flags on hx/PE. ? bronchitis versus mild COPD exacerbation, r/o pna, atypical for ACS. ekg normal labs including trop wnl, no leukocytosis cxr with baseline chronic disease, no acute pna discussed with Dr. Piper, agrees with d/c on steroids and abx. pt agrees, understands return criteria, daughter at bedside 07/11/18 14:34 EXAM#: TYPE/EXAM: RESULT: [id number] RAD/CHEST PA LAT Hemoptysis. Chest 2 views. [facility] study January 20, 2018. Unchanged contour of the cardiomediastinal silhouette. No pneumothorax, or large pleural effusion is seen. Extensive bilateral apical pleural thickening. No evidence of vascular congestive changes. Chronic interstitial lung disease, bronchiectasis. Demineralized osseous structures. No evidence of lobar consolidations. Please refer to the CT of the chest January 20, 2018 for additional findings. Reported By: Adolfo Tarango MD 07/11/18 14:09 14:15pm- resident spoke with Dr. Ceballos concerning patient's care, is in agreement with plan 07/11/18 14:35 Heart Score/ECG Review #1 ECG reviewed & interpreted by me at: 13:17 General ECG Interpretation: Sinus Rhythm (PVC noted), Normal Rate (97), Normal Intervals (qtc 457), No acute ischemic changes
[2018-07-11 16:21] VITALS: BP 130/63; PULSE 97; TEMP 97.9
--- NOTE | 2018-07-12 15:43 | EKG ---
Test Reason : Blood Pressure : / mmHG Vent. Rate : 097 BPM Atrial Rate : 097 BPM P-R Int : 168 ms QRS Dur : 078 ms QT Int : 360 ms P-R-T Axes : 042 030 023 degrees QTc Int : 457 ms POOR DATA QUALITY, INTERPRETATION MAY BE ADVERSELY AFFECTED SINUS RHYTHM WITH OCCASIONAL PREMATURE VENTRICULAR COMPLEXES AND PREMATURE ATRIAL COMPLEXES CANNOT RULE OUT INFERIOR INFARCT , AGE UNDETERMINED ABNORMAL ECG Confirmed by KEVIN LEZAMA, PROSPER ([id number]) on 07/12/2018 3:43:27 PM Referred By: Confirmed By:PROSPER BROWN MD
== END 2018-07-11 16:34 | disposition home or self-care (01) ==
LOC: JER 11:58
PROC: 3E0F7GC Introduction of Other Therapeutic Substance into Respiratory Tract, Via Natural or Artificial Opening (ICD-10-PCS; principal; 2018-07-11)
PROC: 3E0333Z Introduction of Anti-inflammatory into Peripheral Vein, Percutaneous Approach (ICD-10-PCS; 2018-07-11)
DX: J44.9 Chronic obstructive pulmonary disease, unspecified (principal); J84.89 Other specified interstitial pulmonary diseases; J45.909 Unspecified asthma, uncomplicated; K29.50 Unspecified chronic gastritis without bleeding; N40.0 Benign prostatic hyperplasia without lower urinary tract symptoms
CPT/HCPCS: 36415; 71046-TC-FY; 80053; 82550; 84484; 85025; 85610; 93005; 93010; 94640; 96374; 99283-25

== ENCOUNTER 2018-08-15 11:55 | Inpatient (IN) | payer MEDICARE, OTHER ==
[2018-08-15 13:07] LABS: BASO % 0.7 % (0-2.0); EOS % 0.5 % (0-4.5); LYMPH % 13.8 % (8-40); MCH 32.6 pg (25.7-33.7); MCHC 33.4 g/dl (32.0-35.9); MEAN CELL VOLUME 97.6 fl (80-96); MEAN PLT VOLUME 8.7 fl (7.5-11.1); MONO % 4.7 % (3.8-10.2); NEUT % 80.3 % (42.8-82.8); PLATELET COUNT 259 K/MM3 (134-434); RDW 15.3 % (11.9-15.9); WHITE BLOOD COUNT 5.1 K/mm3 (4.0-10.0)
[2018-08-15 13:10] LABS: ALLENS TEST POSITIVE
[2018-08-15 13:12] LABS: ARTERIAL BLD GAS O2 SATURATION 95.9 % (95-98); ARTERIAL BLOOD GAS BASE EXCESS 7.5 meq/l (-2-2); ARTERIAL BLOOD GAS PCO2 63.6 mmHg (35-45); ARTERIAL BLOOD GAS PO2 80.9 mmHg (80-105); ARTERIAL BLOOD GAS pH 7.36 (7.35-7.45); CARBOXYHEMOGLOBIN 1.6 % (0-2)
--- NOTE | 2018-08-15 13:21 | PDOC ---
Documentation entered by Mati Darden SCRIBE, acting as scribe for Cresencio Sparks MD. Cresencio Sparks MD: This documentation has been prepared by the nellaeAdelso Elijah, SCRIBE, under my direction and personally reviewed by me in its entirety. I confirm that the documentation accurately reflects all work, treatment, procedures, and medical decision making performed by me. Attending Attestation - Resident Resident Name: Riya Hudson - ED Attending Attestation I have performed the following: I have examined & evaluated the patient, The case was reviewed & discussed with the resident, I agree w/resident's findings & plan - HPI HPI: 08/15/18 13:06 Patient is an 83 year old male with a significant past medical history of asthma , COPD, interstitial lung disease, chronic gastritis, H pylori, cachexia, BPH who presents to the ED with progressively worsening SOB lasting since his last ER visit a month prior. As per family member at bedside, the patient has had dyspnea on exertion, a productive cough that doesnt bring all the phlegm out, weakness resulting in an inability to ambulate and some upper left back pain. Patient also associates some chest pain with the cough. Denies fever, headache, nausea, vomiting, abdominal pain. Allergies: Fish Derived, Shellfish - Physicial Exam PE: 08/15/18 13:06 GENERAL: The patient is awake, alert, Nontoxic - in no acute distress, cachectic appearing HEAD: Normocephalic, atraumatic. EYES: extraocular movements intact, sclera anicteric, conjunctiva clear. ENT: Normal voice, Moist mucous membranes. NECK: Normal range of motion, supple without lymphadenopathy, JVD, or masses. LUNGS: deminished breath sounds bilaterally, no acute respiratory disterss, speaking complete sentences, no accessory muscle use HEART: Regular rate and rhythm, normal S1 and S2 without murmur, rub or gallop. ABDOMEN: Soft, nontender, No guarding, no rebound. No masses. EXTREMITIES: Normal range of motion, NEUROLOGICAL: No facial asymmetry, Normal speech, moving all 4 ext spontaneously and symmetrically PSYCH: Normal mood, normal affect. SKIN: Warm, Dry, normal turgor, no rashes or lesions noted. - Medical Decision Making 08/15/18 13:17 Patient is an 83 year old male with a significant past medical history of asthma , COPD, interstitial lung disease, chronic gastritis, H pylori, cachexia, BPH who presents to the ED with progressively worsening SOB/cough and genrealized weakness. no fever/chills, abd pain, n/v on exam pt is cachctic apeparing, b/l breath sounds deminshed pts oriiginal vitals noted sat in80s however during my exam, on ra, pt was 98% ddx - pleural effusion, pna, copd exacerbation will obtain blood work to r/o acs, anemia, metbolic derangement cxr will reassess 08/15/18 17:56 ct cehst noted for pneumoediastunm. - doubt esopageal casuse as w.o cp or recent hx of vomiting and nontoxic appearance dw CT surgery will admit, will obtain barium swallow as inpatient Case discussed in detail with admitting physician including history, physical exam and ancillary studies. Admitting physician has assumed care for the patient, will follow all pending diagnostics and will complete the evaluation and treatment. Heart Score/ECG Review - ECG Impressions Comment:: 08/15/18 13:20 Twelve-lead EKG was performed and reviewed by me. There is normal sinus rhythm with a normal rate. Occasional PVCs noted Rate of 97 Left axis deviation
[2018-08-15] MEDS ORDERED: ALBUTEROL SO4 2.5/IPRATROPIUM 0.5 INH SOL 3 ML VIAL.NEB. NEB ONE (13:26)
[2018-08-15 13:36] LABS: ALBUMIN 3.4 g/dl (3.4-5.0); ALK PHOS 96 U/L (45-117); ANION GAP 5 MMOL/L (8-16); BILIRUBIN,TOTAL 0.6 mg/dL (0.2-1); BLOOD UREA NITROGEN 26.4 mg/dL (7-18); CHLORIDE 102 mmol/L (98-107); CO2 36 mmol/L (21-32); CREATININE 0.8 mg/dL (0.55-1.3); GLUCOSE,RANDOM 100 mg/dL (74-106); MAGNESIUM 2.6 mg/dL (1.8-2.4); POTASSIUM 3.9 mmol/L (3.5-5.1); SGOT/AST 18 U/L (15-37); SGPT/ALT 15 U/L (13-61); SODIUM 143 mmol/L (136-145); TOT PROT 8.1 g/dl (6.4-8.2)
[2018-08-15] MEDS ORDERED: predniSONE 20 MG TABLET (UD) PO ONE (14:07)
--- NOTE | 2018-08-15 14:15 | PDOC ---
History of Present Illness - General Chief Complaint: Shortness of Breath Stated Complaint: COUGH LOSS OF APPETITE Time Seen by Provider: 08/15/18 12:10 History Source: Patient, Family (daughter) Exam Limitations: Dementia, Language Barrier - History of Present Illness Initial Comments: 08/15/18 14:59 83yo M with PMH of COPD/Asthma, Anemia, BPH, Dementia? presenting to ED with family for lethargy, loss of appetite and sob. Per daughter, patient has not been eating, has been complaining of body aches and has been having coughs productive of white phlegm. She states that when he sleeps, he sleeps with his mouth open which is different than usual. Patient states that he has not been feeling well and does not feel like eating. Daughter also notes that patient has been more forgetful than usual. Pt lives at home with his . He was seen in the ED one month ago for similar complaints. Daughter states that his status since then has been the same but a little worse for the past few days. No new medications, no fevers, no n/v, no weakness, falls, chest pain. PMD: Feliz PMH: see hpi PSH: none Meds: see med rec Allergies: nkda Past History - Past Medical History Allergies/Adverse Reactions: Allergies Allergy/AdvReac Type Severity Reaction Status Date / Time fish derived [Fish derived] Allergy Verified 08/15/18 12:03 Shellfish Allergy Verified 08/15/18 12:03 Home Medications: Ambulatory Orders Tiotropium [place] [Spiriva] 18 mcg IH BID 03/17/13 Albuterol 0.083% Nebulizer Pilar [Ventolin 0.083% Nebulizer Soln -] 1 amp NEB Q6H PRN #20 amp 01/25/18 Clarithromycin [Biaxin -] 500 mg PO BID #28 tablet 01/25/18 Pantoprazole Sodium [Protonix -] 40 mg PO BID #28 tablet.ec 01/25/18 Tamsulosin HCl [Flomax -] 0.4 mg PO DAILY@0830 #30 cap.er.24h 01/25/18 Azithromycin [Zithromax Tri-Nelson (3 DAYS) -] 500 mg PO DAILY #3 tablet 07/11/18 Methylprednisolone [Medrol Dose Nelson] 4 mg PO ASDIR #21 tablet 07/11/18 Anemia: Yes Asthma: Yes COPD: Yes - Immunization History Immunization Up to Date: No - Suicide/Smoking/Psychosocial Hx Smoking Status: No Smoking History: Never smoked Have you smoked in the past 12 months: No Number of Cigarettes Smoked Daily: 0 Information on smoking cessation initiated: No Hx Alcohol Use: No Drug/Substance Use Hx: No Substance Use Type: None Review of Systems - Review of Systems Constitutional: Yes: Weakness, Unexplained wgt Loss. No: Chills, Fever HEENTM: No: Symptoms Reported Respiratory: Yes: Cough, Shortness of Breath. No: Hemoptysis Cardiac (ROS): Yes: See HPI. No: Lightheadedness, Palpitations ABD/GI: No: Symptoms Reported : No: Symptoms Reported Musculoskeletal: Yes: See HPI, Back Pain, Joint Pain, Muscle Pain Integumentary: No: Symptoms Reported Neurological: No: Symptoms reported *Physical Exam - Vital Signs Last Vital Signs Temp Pulse Resp BP Pulse Ox 98.6 F 105 H 16 119/71 98 08/15/18 12:03 08/15/18 12:03 08/15/18 12:03 08/15/18 12:03 08/15/18 13:02 - Physical Exam General Appearance: Yes: Appropriately Dressed, Moderate Distress, Cachetic HEENT: positive: EOMI, MELODY, Pharynx Normal. negative: Pale Conjunctivae Neck: positive: Trachea midline, Supple Respiratory/Chest: positive: Decreased Breath Sounds. negative: Chest Tender, Crackles Cardiovascular: positive: S1, S2, Tachycardia. negative: Edema, JVD, Murmur Vascular Pulses: Dorsalis-Pedis (R): 2+, Doralis-Pedis (L): 2+ Gastrointestinal/Abdominal: positive: Normal Bowel Sounds, Flat, Soft Musculoskeletal: negative: CVA Tenderness Extremity: positive: Normal Capillary Refill. negative: Swelling, Calf Tenderness Integumentary: positive: Normal Color, Dry, Warm Neurologic: positive: staff climate scientist II-XII NML intact, Fully Oriented, Alert, Normal Mood/ Affect, Normal Response, Motor Strength / ED Treatment Course - LABORATORY CBC & Chemistry Diagram: 08/15/18 12:57 08/15/18 12:57 - ADDITIONAL ORDERS Additional order review: Laboratory Results 08/15/18 08/15/18 08/15/18 12:57 12:57 12:57 PTT (Actin FS) 33.4 Anticoagulation Therapy Puncture Site ABG pH ABG pCO2 at Pt Temp ABG pO2 at Pt Temp ABG HCO3 ABG O2 Sat (Measured) ABG O2 Content ABG Base Excess Lázaro Test Carboxyhemoglobin Methemoglobin O2 Delivery Device Oxygen Flow Rate Vent Mode Vent Rate Mechanical Rate Pressure Support Vent Sodium 143 Potassium 3.9 Chloride 102 Carbon Dioxide 36 H Anion Gap 5 L BUN 26.4 H Creatinine 0.8 Est GFR (CKD-EPI)AfAm 95.07 Est GFR (CKD-EPI)NonAf 82.03 Random Glucose 100 Lactic Acid 1.3 Calcium 9.0 Magnesium 2.6 H Total Bilirubin 0.6 AST 18 ALT 15 Alkaline Phosphatase 96 Total Protein 8.1 Albumin 3.4 08/15/18 12:45 PTT (Actin FS) Anticoagulation Therapy No Result Required. Puncture Site Left brachial ABG pH 7.36 ABG pCO2 at Pt Temp 63.6 H ABG pO2 at Pt Temp 80.9 ABG HCO3 35.1 H ABG O2 Sat (Measured) 95.9 ABG O2 Content 20.5 ABG Base Excess 7.5 H Lázaro Test Positive Carboxyhemoglobin 1.6 Methemoglobin 0.2 O2 Delivery Device Room air Oxygen Flow Rate 21% Vent Mode No Result Required. Vent Rate No Result Required. Mechanical Rate No Result Required. Pressure Support Vent No Result Required. Sodium Potassium Chloride Carbon Dioxide Anion Gap BUN Creatinine Est GFR (CKD-EPI)AfAm Est GFR (CKD-EPI)NonAf Random Glucose Lactic Acid Calcium Magnesium Total Bilirubin AST ALT Alkaline Phosphatase Total Protein Albumin 08/15/18 12:57 RBC 4.00 MCV 97.6 H MCHC 33.4 RDW 15.3 MPV 8.7 Neutrophils % 80.3 Lymphocytes % 13.8 D Monocytes % 4.7 Eosinophils % 0.5 Basophils % 0.7 - RADIOLOGY Radiology Studies Ordered: Category Date Time Status CHEST X-RAY PORTABLE* [RAD] Stat Radiology 08/15/18 12:15 Completed Medical Decision Making - Medical Decision Making 08/15/18 15:03 83yo M with PMH of COPD/Asthma, Anemia, BPH, Dementia? presenting to ED with family for lethargy, loss of appetite and sob. Per daughter, patient has not been eating, has been complaining of body aches and has been having coughs productive of white phlegm. She states that when he sleeps, he sleeps with his mouth open which is different than usual. Patient states that he has not been feeling well and does not feel like eating. Daughter also notes that patient has been more forgetful than usual. Pt lives at home with his . He was seen in the ED one month ago for similar complaints. Daughter states that his status since then has been the same but a little worse for the past few days. No new medications, no fevers, no n/v, no weakness, falls, chest pain. Vitals: tachycardia, hypoxic on RA, normotesnive, afebrile PE: cachectic, decreased breath sounds (poor effort v. pathology), irregular heart sounds ddx includes but not limited to failure to thrive, electrolyte/metabolic abnormality, malignancy, copd/asthma, acs, sepsis -sepsis w/u ordered -ekg, cxr -iv fluids cxr does not show any acute changes from prior one month ago. ekg: sinus with pac at 100bmp. qtc 410. t wafe flattening in III, aVL labs show elevated rbc compared to prior, all other electrolytes and blood counts wnl. pt saturates to low 90s on RA. will order cta. CTA shows diffuse interstitial lung disease and pneumomediastinum. Called CTA Dr. Sutherland. pt is afebrile, no difficulty swallowing. air probably due to coughing, pulmonary in nature. Low suspicion for esophageal rupture. Would benefit from barium swallow. labs wnl. Will admit pt for failure to thrive, copd, pneumomediastinum. *DC/Admit/Observation/Transfer Diagnosis at time of Disposition: Interstitial lung disease, Pneumomediastinum COPD (chronic obstructive pulmonary disease) Qualifiers: COPD type: unspecified COPD Qualified Code(s): J44.9 - Chronic obstructive pulmonary disease, unspecified Failure to thrive Qualifiers: Failure to thrive age range: in adult Qualified Code(s): R62.7 - Adult failure to thrive - Referrals - Patient Instructions - Post Discharge Activity
--- NOTE | 2018-08-15 14:33 | EKG ---
Test Reason : Blood Pressure : / mmHG Vent. Rate : 100 BPM Atrial Rate : 100 BPM P-R Int : 186 ms QRS Dur : 086 ms QT Int : 318 ms P-R-T Axes : 046 -44 026 degrees QTc Int : 410 ms SINUS RHYTHM WITH PREMATURE ATRIAL COMPLEXES POSSIBLE LEFT ATRIAL ENLARGEMENT LEFT AXIS DEVIATION ABNORMAL ECG WHEN COMPARED WITH ECG OF 11-JUL-2018 13:17, SIGNIFICANT CHANGES HAVE OCCURRED Confirmed by Mk Verdin ([id number]) on 08/15/2018 2:32:31 PM Referred By: Confirmed By:Mk Verdin
[2018-08-15 14:34] LABS: INR 1.07 (0.83-1.09); PROTHROMBIN TIME (PATIENT) 12.6 SEC (9.7-13.0)
[2018-08-15] MEDS ORDERED: predniSONE 20 MG TABLET (UD) ONE ×2 (15:06)
[2018-08-15] MEDS ORDERED: ALBUTEROL SO4 0.083% IH SOL 2.5 MG/3 ML VIAL.NEB. NEB PRN (17:04)
--- NOTE | 2018-08-15 17:09 | HP ---
CHIEF COMPLAINT:cough, sob, fatigue PCP:Juan Jose HISTORY OF PRESENT ILLNESS: Patient is an 83 year old male with a significant past medical history of asthma , COPD, interstitial lung disease, chronic gastritis, H pylori, cachexia, BPH who presented to the ED with progressively worsening SOB lasting since his last ER visit a month prior. As per family member at bedside, the patient has had dyspnea on exertion, a productive cough that doesnt bring all the phlegm out, weakness resulting in an inability to ambulate and some upper left back pain. pt seen at bedside in ED, pt Israeli speaking, daughter at bedside to translate. Daughter reports increased weakness over the past month, with cough, white phlem, too weak to get up to eat. Denies fever, headache, nausea, vomiting, abdominal pain, difficulty swallowing , chest pain. ER course was notable for: (1)oxygen saturation 81% room air (2)afebrile (3)no leukocytosis Recent Travel: PAST MEDICAL HISTORY: Asthma COPD Interstitial lung disease, Chronic gastritis, H pylori Cachexia BPH PAST SURGICAL HISTORY:denies Social History: Smoking:denies Alcohol:denies Drugs: denies Family History: Allergies fish derived [Fish derived] Allergy (Verified 08/15/18 12:03) Shellfish Allergy (Verified 08/15/18 12:03) HOME MEDICATIONS: Home Medications Medication Instructions Recorded Tiotropium [place] [Spiriva] 18 mcg IH BID 03/17/13 Albuterol 0.083% Nebulizer Pilar 1 amp NEB Q6H PRN #20 amp 01/25/18 [Ventolin 0.083% Nebulizer Soln -] Clarithromycin [Biaxin -] 500 mg PO BID #28 tablet 01/25/18 Pantoprazole Sodium [Protonix -] 40 mg PO BID #28 tablet.ec 01/25/18 Tamsulosin HCl [Flomax -] 0.4 mg PO DAILY@0830 #30 cap.er.24h 01/25/18 Azithromycin [Zithromax Tri-Nelson (3 500 mg PO DAILY #3 tablet 07/11/18 DAYS) -] Methylprednisolone [Medrol Dose 4 mg PO ASDIR #21 tablet 07/11/18 Nelson] REVIEW OF SYSTEMS CONSTITUTIONAL: +generalized weakness, decreased appetite Absent: fever, chills, diaphoresis, malaise, loss of appetite, weight change HEENT: Absent: rhinorrhea, nasal congestion, throat pain, throat swelling, difficulty swallowing, mouth swelling, ear pain, eye pain, visual changes CARDIOVASCULAR: Absent: chest pain, syncope, palpitations, irregular heart rate, lightheadedness , peripheral edema RESPIRATORY: +cough, shortness of breath, dyspnea on exertion, Absent: orthopnea, wheezing, stridor, hemoptysis GASTROINTESTINAL: Absent: abdominal pain, abdominal distension, nausea, vomiting, diarrhea, constipation, melena, hematochezia GENITOURINARY: Absent: dysuria, frequency, urgency, hesitancy, hematuria, flank pain, genital pain MUSCULOSKELETAL: Absent: myalgia, arthralgia, joint swelling, back pain, neck pain SKIN: Absent: rash, itching, pallor HEMATOLOGIC/IMMUNOLOGIC: Absent: easy bleeding, easy bruising, lymphadenopathy, frequent infections ENDOCRINE: Absent: unexplained weight gain, unexplained weight loss, heat intolerance, cold intolerance NEUROLOGIC: Absent: headache, focal weakness or paresthesias, dizziness, unsteady gait, seizure, mental status changes, bladder or bowel incontinence PSYCHIATRIC: Absent: anxiety, depression, suicidal or homicidal ideation, hallucinations. PHYSICAL EXAMINATION Vital Signs - 24 hr 08/15/18 08/15/18 12:03 13:02 Temperature 98.6 F Pulse Rate 105 H Respiratory 16 Rate Blood Pressure 119/71 O2 Sat by Pulse 81 L 98 Oximetry (%) GENERAL: Awake, alert, and fully oriented, in no acute distress,cachectic HEAD: Normal with no signs of trauma. EYES: Pupils equal, round and reactive to light, extraocular movements intact, sclera anicteric, conjunctiva clear. No lid lag. EARS, NOSE, THROAT: Ears normal, nares patent, oropharynx clear without exudates. Moist mucous membranes. NECK: Normal range of motion, supple without lymphadenopathy, JVD, or masses. LUNGS: dimished breath sounds, . No wheezes, and no crackles. No accessory muscle use. HEART: Regular rate and rhythm, normal S1 and S2 without murmur, rub or gallop. ABDOMEN: Soft, nontender, not distended, normoactive bowel sounds, no guarding, no rebound, no masses. No hepatomegaly or splenomegaly. MUSCULOSKELETAL: Normal range of motion at all joints. No bony deformities or tenderness. No CVA tenderness. UPPER EXTREMITIES: 2+ pulses, warm, well-perfused. No cyanosis. No clubbing. No peripheral edema. LOWER EXTREMITIES: 2+ pulses, warm, well-perfused. No calf tenderness. No peripheral edema. NEUROLOGICAL: Cranial nerves II-XII intact. Normal speech. Normal gait. PSYCHIATRIC: Cooperative. Good eye contact. Appropriate mood and affect. SKIN: Warm, dry, normal turgor, no rashes or lesions noted, normal capillary refill. Laboratory Results - last 24 hr 08/15/18 08/15/18 08/15/18 12:45 12:57 12:57 WBC 5.1 RBC 4.00 Hgb 13.0 Hct 39.0 MCV 97.6 H MCH 32.6 MCHC 33.4 RDW 15.3 Plt Count 259 D MPV 8.7 Absolute Neuts (auto) 4.1 Neutrophils % 80.3 Lymphocytes % 13.8 D Monocytes % 4.7 Eosinophils % 0.5 Basophils % 0.7 Nucleated RBC % 0 PT with INR 12.60 INR 1.07 PTT (Actin FS) Anticoagulation Therapy No Result Required. Puncture Site Left brachial ABG pH 7.36 ABG pCO2 at Pt Temp 63.6 H ABG pO2 at Pt Temp 80.9 ABG HCO3 35.1 H ABG O2 Sat (Measured) 95.9 ABG O2 Content 20.5 ABG Base Excess 7.5 H Lzáaro Test Positive Carboxyhemoglobin 1.6 Methemoglobin 0.2 O2 Delivery Device Room air Oxygen Flow Rate 21% Vent Mode No Result Required. Vent Rate No Result Required. Mechanical Rate No Result Required. Pressure Support Vent No Result Required. Sodium Potassium Chloride Carbon Dioxide Anion Gap BUN Creatinine Est GFR (CKD-EPI)AfAm Est GFR (CKD-EPI)NonAf Random Glucose Lactic Acid Calcium Magnesium Total Bilirubin AST ALT Alkaline Phosphatase Troponin I Total Protein Albumin 08/15/18 08/15/18 08/15/18 12:57 12:57 12:57 WBC RBC Hgb Hct MCV MCH MCHC RDW Plt Count MPV Absolute Neuts (auto) Neutrophils % Lymphocytes % Monocytes % Eosinophils % Basophils % Nucleated RBC % PT with INR INR PTT (Actin FS) 33.4 Anticoagulation Therapy Puncture Site ABG pH ABG pCO2 at Pt Temp ABG pO2 at Pt Temp ABG HCO3 ABG O2 Sat (Measured) ABG O2 Content ABG Base Excess Lázaro Test Carboxyhemoglobin Methemoglobin O2 Delivery Device Oxygen Flow Rate Vent Mode Vent Rate Mechanical Rate Pressure Support Vent Sodium 143 Potassium 3.9 Chloride 102 Carbon Dioxide 36 H Anion Gap 5 L BUN 26.4 H Creatinine 0.8 Est GFR (CKD-EPI)AfAm 95.07 Est GFR (CKD-EPI)NonAf 82.03 Random Glucose 100 Lactic Acid 1.3 Calcium 9.0 Magnesium 2.6 H Total Bilirubin 0.6 AST 18 ALT 15 Alkaline Phosphatase 96 Troponin I < 0.02 Total Protein 8.1 Albumin 3.4 ASSESSMENT/PLAN: Mr. Rajiv Nolasco is a 83 year old male with a significant past medical history of asthma, COPD, interstitial lung disease, chronic gastritis, H pylori , cachexia, BPH admitted for Admitting Diagnosis Failure to thrive Pneumomediastinum Acute respiratory failure, hypoxia Chronic Problems Asthma COPD Interstitial lung disease, Chronic gastritis, H pylori Cachexia BPH A/P: #Acute respiratory failure, hypoxia #Pneumomediastinum -fio2 to keep o2 >94% -duonebs prn -CTA no PE, -Pulm consult #FTT -nutrition consult -Barium swallow to r/o esophageal stricture -reg diet -IVF #Asthma #COPD #Interstitial Lung disease -resume home meds, inhalers -received prednisone 60 mg oral in ED -completed azithro, medrol, pack in July #BPH -on flomax #Anemia,chronic -cbc stable #Gastritis,chronic -on PPI BID Full Code Dispo: requires inpatient treatment FEN IV fluids GI/DVT prophylaxis Reg diet Visit type - Emergency Visit Emergency Visit: Yes ED Registration Date: 08/15/18 Care time: The patient presented to the Emergency Department on the above date and was hospitalized for further evaluation of their emergent condition. - New Patient This patient is new to me today: Yes Date on this admission: 08/15/18 - Critical Care Critical Care patient: No
[2018-08-15] MEDS: SODIUM CHLORIDE 1,000 ML IV SCH (20:04)
[2018-08-15 21:35] LABS: URINE COLOR YELLOW
[2018-08-15 21:36] LABS: URINE APPEARANCE CLEAR; URINE BILIRUBIN NEGATIVE (NEGATIVE); URINE GLUCOSE (UA) NEGATIVE (NEGATIVE); URINE KETONE TRACE (NEGATIVE)
[2018-08-15 21:37] LABS: URINE LEUK ESTERASE NEGATIVE (NEGATIVE); URINE NITRITE NEGATIVE (NEGATIVE); URINE PROTEIN 1+ (NEGATIVE); URINE UROBILINOGEN 0.2 mg/dL (0.2-1.0)
[2018-08-15 21:50] LABS: HYALINE CASTS 7 /lpf (0-8); URINE RBC 4 /hpf (0-4); URINE WBC 1 /hpf (0-5)
[2018-08-15] MEDS: HEPARIN NA (PORCINE) 5,000 UNITS/ML 1ML VIAL SQ SCH (22:34)
[2018-08-15] MEDS: PANTOPRAZOLE 40 MG TABLET (FP) PO SCH (22:34)
[2018-08-16 03:35] VITALS: BMI 16.4
--- NOTE | 2018-08-16 05:34 | PN ---
Physical Exam: SUBJECTIVE: Patient seen and examined OBJECTIVE: Vital Signs Period Temp Pulse Resp BP Sys/Fre[place] Pulse Ox Last 24 Hr 97.1 F-98.6 F 78-105 16-28 100-119/57-77 81-98 GENERAL: The patient is awake, alert, and fully oriented, in no acute distress. HEAD: Normal with no signs of trauma. EYES: PERRL, extraocular movements intact, sclera anicteric, conjunctiva clear. No ptosis. ENT: Ears normal, nares patent, oropharynx clear without exudates, moist mucous membranes. NECK: Trachea midline, full range of motion, supple. LUNGS: Breath sounds equal, clear to auscultation bilaterally, no wheezes, no crackles, no accessory muscle use. HEART: Regular rate and rhythm, S1, S2 without murmur, rub or gallop. ABDOMEN: Soft, nontender, nondistended, normoactive bowel sounds, no guarding, no rebound, no hepatosplenomegaly, no masses. EXTREMITIES: 2+ pulses, warm, well-perfused, no edema. NEUROLOGICAL: Cranial nerves II through XII grossly intact. Normal speech, gait not observed. PSYCH: Normal mood, normal affect. SKIN: Warm, dry, normal turgor, no rashes or lesions noted Laboratory Results - last 24 hr 08/15/18 08/15/18 08/15/18 12:45 12:57 12:57 WBC 5.1 RBC 4.00 Hgb 13.0 Hct 39.0 MCV 97.6 H MCH 32.6 MCHC 33.4 RDW 15.3 Plt Count 259 D MPV 8.7 Absolute Neuts (auto) 4.1 Neutrophils % 80.3 Lymphocytes % 13.8 D Monocytes % 4.7 Eosinophils % 0.5 Basophils % 0.7 Nucleated RBC % 0 PT with INR 12.60 INR 1.07 PTT (Actin FS) Anticoagulation Therapy No Result Required. Puncture Site Left brachial ABG pH 7.36 ABG pCO2 at Pt Temp 63.6 H ABG pO2 at Pt Temp 80.9 ABG HCO3 35.1 H ABG O2 Sat (Measured) 95.9 ABG O2 Content 20.5 ABG Base Excess 7.5 H Lázaro Test Positive Carboxyhemoglobin 1.6 Methemoglobin 0.2 O2 Delivery Device Room air Oxygen Flow Rate 21% Vent Mode No Result Required. Vent Rate No Result Required. Mechanical Rate No Result Required. Pressure Support Vent No Result Required. Sodium Potassium Chloride Carbon Dioxide Anion Gap BUN Creatinine Est GFR (CKD-EPI)AfAm Est GFR (CKD-EPI)NonAf Random Glucose Lactic Acid Calcium Magnesium Total Bilirubin AST ALT Alkaline Phosphatase Troponin I Total Protein Albumin Urine Color Urine Appearance Urine pH Ur Specific [place] Urine Protein Urine Glucose (UA) Urine Ketones Urine Blood Urine Nitrite Urine Bilirubin Urine Urobilinogen Ur Leukocyte Esterase Urine WBC (Auto) Urine RBC (Auto) Urine Casts (Auto) U Epithel Cells (Auto) Urine Bacteria (Auto) 08/15/18 08/15/18 08/15/18 12:57 12:57 12:57 WBC RBC Hgb Hct MCV MCH MCHC RDW Plt Count MPV Absolute Neuts (auto) Neutrophils % Lymphocytes % Monocytes % Eosinophils % Basophils % Nucleated RBC % PT with INR INR PTT (Actin FS) 33.4 Anticoagulation Therapy Puncture Site ABG pH ABG pCO2 at Pt Temp ABG pO2 at Pt Temp ABG HCO3 ABG O2 Sat (Measured) ABG O2 Content ABG Base Excess Lázaro Test Carboxyhemoglobin Methemoglobin O2 Delivery Device Oxygen Flow Rate Vent Mode Vent Rate Mechanical Rate Pressure Support Vent Sodium 143 Potassium 3.9 Chloride 102 Carbon Dioxide 36 H Anion Gap 5 L BUN 26.4 H Creatinine 0.8 Est GFR (CKD-EPI)AfAm 95.07 Est GFR (CKD-EPI)NonAf 82.03 Random Glucose 100 Lactic Acid 1.3 Calcium 9.0 Magnesium 2.6 H Total Bilirubin 0.6 AST 18 ALT 15 Alkaline Phosphatase 96 Troponin I < 0.02 Total Protein 8.1 Albumin 3.4 Urine Color Urine Appearance Urine pH Ur Specific [place] Urine Protein Urine Glucose (UA) Urine Ketones Urine Blood Urine Nitrite Urine Bilirubin Urine Urobilinogen Ur Leukocyte Esterase Urine WBC (Auto) Urine RBC (Auto) Urine Casts (Auto) U Epithel Cells (Auto) Urine Bacteria (Auto) 08/15/18 19:55 WBC RBC Hgb Hct MCV MCH MCHC RDW Plt Count MPV Absolute Neuts (auto) Neutrophils % Lymphocytes % Monocytes % Eosinophils % Basophils % Nucleated RBC % PT with INR INR PTT (Actin FS) Anticoagulation Therapy Puncture Site ABG pH ABG pCO2 at Pt Temp ABG pO2 at Pt Temp ABG HCO3 ABG O2 Sat (Measured) ABG O2 Content ABG Base Excess Lázaro Test Carboxyhemoglobin Methemoglobin O2 Delivery Device Oxygen Flow Rate Vent Mode Vent Rate Mechanical Rate Pressure Support Vent Sodium Potassium Chloride Carbon Dioxide Anion Gap BUN Creatinine Est GFR (CKD-EPI)AfAm Est GFR (CKD-EPI)NonAf Random Glucose Lactic Acid Calcium Magnesium Total Bilirubin AST ALT Alkaline Phosphatase Troponin I Total Protein Albumin Urine Color Yellow Urine Appearance Clear Urine pH 5.0 Ur Specific [place] 1.079 H Urine Protein 1+ H Urine Glucose (UA) Negative Urine Ketones Trace H Urine Blood 2+ H Urine Nitrite Negative Urine Bilirubin Negative Urine Urobilinogen 0.2 Ur Leukocyte Esterase Negative Urine WBC (Auto) 1 Urine RBC (Auto) 4 Urine Casts (Auto) 7 U Epithel Cells (Auto) 1.0 Urine Bacteria (Auto) 1.0 Active Medications Generic Name Dose Route Start Last Admin Trade Name Freq PRN Reason Stop Dose Admin Albuterol Sulfate 1 amp 08/15/18 17:04 Ventolin 0.083% Nebulizer Soln - NEB Q6H PRN SHORT OF BREATH/WHEEZING Heparin Sodium (Porcine) 5,000 unit 08/15/18 22:00 08/15/18 22:34 Heparin - SQ 5,000 unit BID CORAL Administration Sodium Chloride 1,000 mls @ 75 mls/hr 08/15/18 17:15 08/15/18 20:04 Normal Saline - IV 75 mls/hr ASDIR CORAL Administration Pantoprazole Sodium 40 mg 08/15/18 22:00 08/15/18 22:34 Protonix - PO 40 mg BID CORAL Administration Tamsulosin HCl 0.4 mg 08/16/18 08:30 Flomax - PO DAILY@0830 [facility] Tiotropium [place] 2 puff 08/16/18 10:00 Spiriva Respimat IH DAILY CORAL ASSESSMENT/PLAN: ATTENDING PHYSICIAN STATEMENT I saw and evaluated the patient. I reviewed the resident's note and discussed the case with the resident. I agree with the resident's findings and plan as documented. SUBJECTIVE: OBJECTIVE: ASSESSMENT AND PLAN:
[2018-08-16] MEDS: SODIUM CHLORIDE 1,000 ML IV SCH ×2 (05:53→17:35)
[2018-08-16 07:14] LABS: HEMATOCRIT 33.8 % (35.4-49); HEMOGLOBIN 11.2 GM/dL (11.7-16.9); MCHC 33.1 g/dl (32.0-35.9); MEAN CELL VOLUME 96.9 fl (80-96); MEAN PLT VOLUME 8.8 fl (7.5-11.1); PLATELET COUNT 214 K/MM3 (134-434); RBC 3.49 M/mm3 (4.00-5.60); RDW 15.2 % (11.9-15.9); WHITE BLOOD COUNT 3.3 K/mm3 (4.0-10.0)
[2018-08-16 07:26] LABS: ALBUMIN 2.7 g/dl (3.4-5.0); BILIRUBIN,TOTAL 0.3 mg/dL (0.2-1); BLOOD UREA NITROGEN 22.8 mg/dL (7-18); CALCIUM 8.2 mg/dL (8.5-10.1); CREATININE 0.6 mg/dL (0.55-1.3); MAGNESIUM 2.5 mg/dL (1.8-2.4); POTASSIUM 4.2 mmol/L (3.5-5.1); TOT PROT 6.6 g/dl (6.4-8.2)
[2018-08-16] MEDS ORDERED: PT OWN MED DRAWER 7, Y5N ONE (09:23)
[2018-08-16] MEDS: TAMSULOSIN HCL 0.4 MG CAP PO SCH (09:47)
[2018-08-16] MEDS: PANTOPRAZOLE 40 MG TABLET (FP) PO SCH ×2 (09:47→21:12)
[2018-08-16] MEDS: HEPARIN NA (PORCINE) 5,000 UNITS/ML 1ML VIAL SQ SCH ×2 (09:47→21:12)
--- NOTE | 2018-08-16 11:56 | PN ---
Progress Note (short form) - Note Progress Note: Awake Dry appearing daughter at bedside Poor oral intake he coughs on water SOB on ambulation Vital Signs - 24 hr 08/15/18 08/15/18 08/15/18 12:03 13:02 19:39 Temperature 98.6 F 97.1 F L Pulse Rate 105 H Pulse Rate [ 92 H Left Radial] Respiratory 16 28 H Rate Blood Pressure 119/71 Blood Pressure 111/77 [Left Arm] O2 Sat by Pulse 81 L 98 98 Oximetry (%) 08/15/18 08/16/18 08/16/18 21:00 02:00 06:00 Temperature 98.2 F 97.6 F 97.5 F L Pulse Rate 86 78 67 Pulse Rate [ Left Radial] Respiratory 20 20 20 Rate Blood Pressure 100/57 L 102/62 105/64 Blood Pressure [Left Arm] O2 Sat by Pulse 97 Oximetry (%) Current Medications Generic Name Dose Route Start Last Admin Trade Name Freq PRN Reason Stop Dose Admin Albuterol Sulfate 1 amp 08/15/18 17:04 Ventolin 0.083% Nebulizer Soln - NEB Q6H PRN SHORT OF BREATH/WHEEZING Heparin Sodium (Porcine) 5,000 unit 08/15/18 22:00 08/16/18 09:47 Heparin - SQ 5,000 unit BID CORAL Administration Sodium Chloride 1,000 mls @ 75 mls/hr 08/15/18 17:15 08/16/18 05:53 Normal Saline - IV 75 mls/hr ASDIR CORAL Administration Azithromycin 500 mg/ Dextrose 250 mls @ 250 mls/hr 08/16/18 12:00 IVPB DAILY CORAL Methylprednisolone Sodium Succinate 40 mg 08/16/18 12:00 Solu-Medrol - IVPUSH Q8H-IV CORAL Pantoprazole Sodium 40 mg 08/15/18 22:00 08/16/18 09:47 Protonix - PO 40 mg BID CORAL Administration Tamsulosin HCl 0.4 mg 08/16/18 08:30 08/16/18 09:47 Flomax - PO 0.4 mg DAILY@0830 CORAL Administration Tiotropium [place] 2 puff 08/16/18 10:00 Spiriva Respimat IH DAILY CORAL Laboratory Results - last 24 hr 08/15/18 08/15/18 08/15/18 12:45 12:57 12:57 WBC 5.1 RBC 4.00 Hgb 13.0 Hct 39.0 MCV 97.6 H MCH 32.6 MCHC 33.4 RDW 15.3 Plt Count 259 D MPV 8.7 Absolute Neuts (auto) 4.1 Neutrophils % 80.3 Lymphocytes % 13.8 D Monocytes % 4.7 Eosinophils % 0.5 Basophils % 0.7 Nucleated RBC % 0 PT with INR 12.60 INR 1.07 PTT (Actin FS) Anticoagulation Therapy No Result Required. Puncture Site Left brachial ABG pH 7.36 ABG pCO2 at Pt Temp 63.6 H ABG pO2 at Pt Temp 80.9 ABG HCO3 35.1 H ABG O2 Sat (Measured) 95.9 ABG O2 Content 20.5 ABG Base Excess 7.5 H Lázaro Test Positive Carboxyhemoglobin 1.6 Methemoglobin 0.2 O2 Delivery Device Room air Oxygen Flow Rate 21% Vent Mode No Result Required. Vent Rate No Result Required. Mechanical Rate No Result Required. Pressure Support Vent No Result Required. Sodium Potassium Chloride Carbon Dioxide Anion Gap BUN Creatinine Est GFR (CKD-EPI)AfAm Est GFR (CKD-EPI)NonAf Random Glucose Lactic Acid Calcium Magnesium Total Bilirubin AST ALT Alkaline Phosphatase Troponin I Total Protein Albumin Urine Color Urine Appearance Urine pH Ur Specific [place] Urine Protein Urine Glucose (UA) Urine Ketones Urine Blood Urine Nitrite Urine Bilirubin Urine Urobilinogen Ur Leukocyte Esterase Urine WBC (Auto) Urine RBC (Auto) Urine Casts (Auto) U Epithel Cells (Auto) Urine Bacteria (Auto) 08/15/18 08/15/18 08/15/18 12:57 12:57 12:57 WBC RBC Hgb Hct MCV MCH MCHC RDW Plt Count MPV Absolute Neuts (auto) Neutrophils % Lymphocytes % Monocytes % Eosinophils % Basophils % Nucleated RBC % PT with INR INR PTT (Actin FS) 33.4 Anticoagulation Therapy Puncture Site ABG pH ABG pCO2 at Pt Temp ABG pO2 at Pt Temp ABG HCO3 ABG O2 Sat (Measured) ABG O2 Content ABG Base Excess Lázaro Test Carboxyhemoglobin Methemoglobin O2 Delivery Device Oxygen Flow Rate Vent Mode Vent Rate Mechanical Rate Pressure Support Vent Sodium 143 Potassium 3.9 Chloride 102 Carbon Dioxide 36 H Anion Gap 5 L BUN 26.4 H Creatinine 0.8 Est GFR (CKD-EPI)AfAm 95.07 Est GFR (CKD-EPI)NonAf 82.03 Random Glucose 100 Lactic Acid 1.3 Calcium 9.0 Magnesium 2.6 H Total Bilirubin 0.6 AST 18 ALT 15 Alkaline Phosphatase 96 Troponin I < 0.02 Total Protein 8.1 Albumin 3.4 Urine Color Urine Appearance Urine pH Ur Specific [place] Urine Protein Urine Glucose (UA) Urine Ketones Urine Blood Urine Nitrite Urine Bilirubin Urine Urobilinogen Ur Leukocyte Esterase Urine WBC (Auto) Urine RBC (Auto) Urine Casts (Auto) U Epithel Cells (Auto) Urine Bacteria (Auto) 08/15/18 08/16/18 08/16/18 19:55 06:10 06:10 WBC 3.3 L RBC 3.49 L Hgb 11.2 L Hct 33.8 L MCV 96.9 H MCH 32.0 MCHC 33.1 RDW 15.2 Plt Count 214 MPV 8.8 Absolute Neuts (auto) Neutrophils % Lymphocytes % Monocytes % Eosinophils % Basophils % Nucleated RBC % PT with INR INR PTT (Actin FS) Anticoagulation Therapy Puncture Site ABG pH ABG pCO2 at Pt Temp ABG pO2 at Pt Temp ABG HCO3 ABG O2 Sat (Measured) ABG O2 Content ABG Base Excess Lázaro Test Carboxyhemoglobin Methemoglobin O2 Delivery Device Oxygen Flow Rate Vent Mode Vent Rate Mechanical Rate Pressure Support Vent Sodium 142 Potassium 4.2 Chloride 104 Carbon Dioxide 35 H Anion Gap 3 L BUN 22.8 H Creatinine 0.6 Est GFR (CKD-EPI)AfAm 107.01 Est GFR (CKD-EPI)NonAf 92.33 Random Glucose 118 H Lactic Acid Calcium 8.2 L Magnesium 2.5 H Total Bilirubin 0.3 AST 13 L ALT 12 L Alkaline Phosphatase 74 Troponin I Total Protein 6.6 Albumin 2.7 L Urine Color Yellow Urine Appearance Clear Urine pH 5.0 Ur Specific [place] 1.079 H Urine Protein 1+ H Urine Glucose (UA) Negative Urine Ketones Trace H Urine Blood 2+ H Urine Nitrite Negative Urine Bilirubin Negative Urine Urobilinogen 0.2 Ur Leukocyte Esterase Negative Urine WBC (Auto) 1 Urine RBC (Auto) 4 Urine Casts (Auto) 7 U Epithel Cells (Auto) 1.0 Urine Bacteria (Auto) 1.0 S1 S2 RRR Lungs - fine crackles+ Abd- soft, NT , scaphoid no edema oral dry PLAN IV fluids check echo CT A chest-- no PE-- extensive COPD, emphysema, [place] Pulmonary eval start Solumedrol and IV antibiotics Nebs O2 Swallow eval d/w daughter about advance directives Problem List - Problems (1) Dehydration Code(s): E86.0 - DEHYDRATION (2) Severe protein-energy malnutrition Code(s): E43 - UNSPECIFIED SEVERE PROTEIN-CALORIE MALNUTRITION (3) COPD (chronic obstructive pulmonary disease) Code(s): J44.9 - CHRONIC OBSTRUCTIVE PULMONARY DISEASE, UNSPECIFIED Qualifiers: COPD type: unspecified COPD Qualified Code(s): J44.9 - Chronic obstructive pulmonary disease, unspecified (4) Failure to thrive Code(s): [id number] - Qualifiers: Failure to thrive age range: in adult Qualified Code(s): R62.7 - Adult failure to thrive (5) Interstitial lung disease Code(s): J84.9 - INTERSTITIAL PULMONARY DISEASE, UNSPECIFIED (6) Pneumomediastinum Code(s): J98.2 - INTERSTITIAL EMPHYSEMA (7) BPH (benign prostatic hyperplasia) Code(s): N40.0 - BENIGN PROSTATIC HYPERPLASIA WITHOUT LOWER URINRY TRACT SYMP (8) Weakness generalized Code(s): R53.1 - WEAKNESS
[2018-08-16] MEDS: AZITHROMYCIN IVPB 500 MG/250 ML BAG IVPB SCH (12:32)
[2018-08-16] MEDS: methylPREDNISolone NA SUCC 40 MG/1 ML VIAL IVPUSH SCH ×2 (12:32→17:31)
[2018-08-16] MEDS: TIOTROPIUM BROMIDE 2.5 MCG (SPIRIVA) RESPIMAT INHALER IH SCH (12:41)
[2018-08-16] MEDS ORDERED: DEXTROSE 5%-WATER - 50 ML IVPB ONE (13:10)
[2018-08-16] MEDS ORDERED: cefTRIAXone SODIUM 1 GM VIAL ONE (13:10)
--- NOTE | 2018-08-16 13:17 | PN ---
Progress Note (short form) - Note Progress Note: PULMONARY CONSULTATION DICTATED 08/16/18 IMP ACUTE ON CHRONIC HYPERCAPNEIC RESPIRATORY FAILURE ILD/BRONCHIECTASIS PNEUMOMEDIASTINUM BPH CACHEXIA CHRONIC GASTRITIS PULMONARY HTN PLAN INHALED BRONCHODILATORS MEDROL ABX O2 F/U CHEST X-RAYS THORACIC SURGERY EVALUATION GI EVALUATION DR BROWN Problem List - Problems (1) Bronchiectasis Code(s): J47.9 - BRONCHIECTASIS, UNCOMPLICATED (2) COPD (chronic obstructive pulmonary disease) Code(s): J44.9 - CHRONIC OBSTRUCTIVE PULMONARY DISEASE, UNSPECIFIED Qualifiers: COPD type: unspecified COPD Qualified Code(s): J44.9 - Chronic obstructive pulmonary disease, unspecified (3) Dehydration Code(s): E86.0 - DEHYDRATION (4) Failure to thrive Code(s): [id number] - Qualifiers: Failure to thrive age range: in adult Qualified Code(s): R62.7 - Adult failure to thrive (5) Interstitial lung disease Code(s): J84.9 - INTERSTITIAL PULMONARY DISEASE, UNSPECIFIED (6) Pneumomediastinum Code(s): J98.2 - INTERSTITIAL EMPHYSEMA (7) Severe protein-energy malnutrition Code(s): E43 - UNSPECIFIED SEVERE PROTEIN-CALORIE MALNUTRITION (8) Anemia Code(s): D64.9 - ANEMIA, UNSPECIFIED Qualifiers: Anemia type: unspecified type Qualified Code(s): D64.9 - Anemia, unspecified
[2018-08-16] MEDS: CEFTRIAXONE 1 GM in DEXTROSE 5%-WATER - 50 ML IVPB SCH (14:18)
--- NOTE | 2018-08-16 15:58 | ECHO ---
Name: CLAY NICKERSON Exam:Adult Echocardiogram Study Date: 08/16/2018 12:33 PM Age: 83 yrs Reason For Study: ef Height: 60 in Weight: 84 lb BSA: 1.3 m2 MMode/2D Measurements & Calculations IVSd: 0.77 cm Ao root diam: 2.5 cm LVIDd: 3.4 cm LA dimension: 1.8 cm LVIDs: 2.4 cm LVPWd: 0.75 cm EDV(Teich): 46.5 ml LVOT diam: 2.0 cm ESV(Teich): 19.4 ml Doppler Measurements & Calculations MV E max vu: 89.2 cm/sec Ao V2 max: 137.0 cm/sec MV A max vu: 116.0 cm/sec Ao max P.5 mmHg MV E/A: 0.77 MV dec time: 0.14 sec GREGORY(V,D): 2.0 cm2 LV V1 max P.2 mmHg TR max vu: 335.2 cm/sec LV V1 max: 88.8 cm/sec TR max P.0 mmHg PA V2 max: 82.8 cm/sec Med Peak E' Vu: 5.8 cm/sec PA max P.7 mmHg Med E/e': 15.5 Lat Peak E' Vu: 6.4 cm/sec Lat E/e': 13.9 Procedure A two-dimensional transthoracic echocardiogram with color flow and Doppler was performed. The study w as technically difficult with many images being suboptimal in quality. Left Ventricle The left ventricular size, thickness and function are normal. The left ventricular ejection fraction is normal. Regional wall motion abnormalities cannot be excluded due to limited visualization. Right Ventricle The right ventricle is not well visualized. Atria Normal left and right atrial size and function. Mitral Valve There is mild mitral valve thickening. There is no mitral valve stenosis. There is mild mitral regurg itation. Tricuspid Valve There is mild tricuspid valve thickening. There is no tricuspid stenosis. There is mild tricuspid regurgitation. Right ventricular systolic pressure is elevated at 50-60mmHg. Aortic Valve The aortic valve is not well visualized. No hemodynamically significant valvular aortic stenosis. No aortic regurgitation is present. Pulmonic Valve The pulmonic valve is not well visualized. Great Vessels The aortic root is normal size. Pericardium/Pleura There is no pericardial effusion. Interpretation Summary There is mild tricuspid regurgitation. There is mild mitral regurgitation. Right ventricular systolic pressure is elevated at 50-60mmHg. The right ventricle is not well visualized. The study was technically difficult with many images being suboptimal in quality. The left ventricular size, thickness and function are normal The left ventricular ejection fraction is normal. Regional wall motion abnormalities cannot be excluded due to limited visualization. MD Sudheer Martinez 08/16/2018 03:58 PM
--- NOTE | 2018-08-16 16:44 | CONSULT ---
Admitting History and Physical - Past Medical History Pulmonary: Yes: Asthma Renal/: Yes: BPH Heme/Onc: Yes: Anemia - Past Surgical History Past Surgical History: Yes: None - Smoking History Smoking history: Never smoked Have you smoked in the past 12 months: No Aproximately how many cigarettes per day: 0 - Alcohol/Substance Use Hx Alcohol Use: No - Social History ADL: Independent Occupation: Worked as [employer] in [place] History of Recent Travel: No History - Admission Reason For Visit: FAILURE TO THRIVE - Hearing Hearing: Normal Hearing Aide: No With Patient: No Speech Evaluation - Communication Primary Language: ROMANIAN Communication: Yes: Within Normal Limits (In [place] Citizen), Simple Responses (in [place]), Language Barrier Oral Expression Ability: Yes: No Impairment - Speech Production Apraxia: No Able to Make Needs Known: Yes: Mildly Impaired (secondary to language barrier) Intelligibility: Yes: WNL - Speech Characteristics Voice Loudness: Normal Voice Pitch: Yes: Normal Voice Phonatory-based Quality: Yes: Normal Speech Pattern: Normal Nasal Resonance: Normal Articulation: Yes: Precise Rate of Speech: Intact Voice Comment: Vocal quality is functional for the environment with speech parameters WNL. - Language/Auditory Comprehension Follows: Yes: 1 Stage Simple Commands (WFL), 2 Stage Simple Commands (WFL) Observation: Able to respond to yes/no queries: Yes (in [place] Citizen), Yes/No Confusion: No, Comprehends Conversational Speech: Yes (in [place] Citizen), Benefits from Slow Speech: No, Benefits from Repetiton: No, Benefits from Increased Volume of Speech: No - Language/Verbal Expression Able to Respond to Simple Queries: Yes: WNL Able to Communicate Wants and Needs: Yes: WNL Functional Communication Status: Yes: WNL Aware of Errors: Yes Attempts to Correct Errors: Yes Use of Gestures: No Written Expression: not examined Oral Expression: good in [place] Citizen only. No [place] ability Reading Comprehension: not examined Calculations: not examined Attention: Yes: Intact - Memory/Perception MCC Memory: Yes: Mildly Impaired Short Term Memory: Yes: WNL - Swallow Evaluation/Bedside Assessment Current Nutritional Intake: Soft, [place] Textured Liquids Oral Secretions: Yes: WFL Tracheostomy Present: No Patient on Ventilator: No Dentition: Yes: Edentulous (only bottom incisors observed), Missing Teeth Facial Symmetry at Rest: Symmetrical Facial Symmetry on Retraction: Symmetrical Facial Movement: Controlled Sensation: Normal Facial Comment: within functional limits for speech and swallowing purposes. Jaw Position: Closed at Rest Against Resistance Opening: Normal Against Resistance Closing: Normal Pucker Lips: Normal Smile: Normal Lips, Comment: within functional limits for speech and swallowing purposes. Lingual Movement: Normal Lingual Speed of Movement: Normal Lingual Movement Strgth Against Opposition: Normal Lingual Movement Characteristics: Normal Lingual Comment: within functional limits for speech and swallowing purposes. Soft Palate Description: Normal Color Hard Palate Description: Normal Color Gag Reflex: Weak Bite Reflex: Present Velopharyngeal Movement: Normal Laryngeal Elevation: WFL Laryngeal Movement: Able to Palpate Needs Assistance: Yes Rate of Intake: WFL Bolus Size: WFL Sensation: Bite Reflex Labial Seal: WFL Chewing: WFL Oral Prep Time: WFL A-P Transit: WFL Timing of Swallow: WFL Odynophagia: Oral Coughing/Throat Clear: Yes (with thin liquids) Change in Voice: No Other Findings/Remarks: 83 yo male seen at bedside for swallow eval to r/o dysphagia. 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 Significant past medical history of asthma, COPD, interstitial lung disease, chronic gastritis, H pylori, cachexia, BPH who presented to the [facility] with progressively worsening SOB. Vocal quality is functional for the environment with speech parameters WNL. Volitional airway protection (without bolus) and swallow is WNL. Pt is edentulous and presents with suboptimal dentition for adequate mastication. Current diet: soft solids with nectar thicken liquids Pt given PO trials of pureed, soft solids, with some assistance revealed, adequate bolus formation and A P transport with a timely pharyngeal swallow (1 -2 second average). No change in voicing or respiration after the swallow. Pt given PO trials of ice chips via spoon, thin and thicken liquids via cup with minimal assistance revealed good acceptance, adequate labial containment / bolus control and, A P transport with a timely pharyngeal swallow (1-2 second average). Subtle cough observed with thin liquids suggested possble penetration and or aspiration. No change in voicing or respiration after the swallow with thicken liquids. Recommendations - Speech Evaluation, Impression/Plan Impression: 83 yo male is able to tolerate pureed, soft solids and nectar thicken liquids without s/s of aspiration. Thin liquid trials revealed subtle cough suggesting possible aspiration. Detention Goals: Tolerate the least restrictive solid and liquid consistencies without s/s of penetration / aspiration. Short Term Goals: Tolerate the purees and soft solid and nectar thicken liquid consistencies without s/s of penetration / aspiration. Recommended Frequency for Therapy: Follow Up PRN - Dysphagia Impressions/Plan Swallowing Skills: Impaired Dysphagia Impressions: Mild Impairment (for thin liquids), Risk of Aspiration, Refused PO Trials, Suspect Aspiration *Silent aspiration: cannot be R/O at bedside Dysphagia Treatment Plan: Small Bites, Chin Tuck/Down, Safe Rate, 1/2 tsp. at a time, Elevate HOB during feed, Other Dysphagia Evaluation Summary: Continue po intake of soft solids with and nectar thicken liquids at tolerated. Observe standard aspiration precautions. Provide oral care before and after meal meals. Consider nutritional supplement for weight maintenance. Consider MBS for aspiration risk. Results given verbally to viscose cellar charge hand and PCPC via chart. WRITER EDITOR to follow up for diet tolerance. Recommendations: Modified Barium Swallow (to determine possible aspiration of thin liquids.) - Recommendations Diet Consistency: 1 - 2 Soft Items, Other Medication Administration: Crushed with applesauce Liquids: [place] Thick Supplement: Magic Cup
--- NOTE | 2018-08-16 18:55 | CONS ---
PULMONARY CONSULTATION DATE OF CONSULTATION: 08/16/2018 REFERRING PHYSICIAN: Afia Piper MD The patient is an 83-year-old male with an extensive past medical history of advanced interstitial lung disease, bronchiectasis, chronic gastritis, H. pylori , cachexia, BPH, admitted to [facility] on August 15 with complaint of increasing shortness of breath and dyspnea on exertion and nonproductive cough. Patient presented to the emergency room with the above. In the ER, he was noted to be in moderate respiratory distress. He was started on inhaled bronchodilators and steroids. Of note, he underwent a CT of the chest which revealed extensive interstitial lung disease, bronchiectasis, and pneumomediastinum. He was transferred to the telemetry unit for further management. He denies any chest pain, nausea, vomiting, or diaphoresis. Denies any hemoptysis. Denies any fevers or chills. The patient is a nonsmoker. Unknown whether or not he was exposed to chemicals. 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 Of note is the patient is not on home oxygen therapy. Patient had a blood gas performed which revealed evidence of pewfp-[id number]-izosinh hypercapnia with a pH 7.36 and a pCO2 of 63.6,O2 saturation was 80 on room air. PAST MEDICAL HISTORY: Again includes advanced interstitial lung disease, bronchiectasis, chronic gastritis, cachexia, H. pylori, and BPH. REVIEW OF SYSTEMS: Positive shortness of breath. Positive nonproductive cough. No fever. No chills. No hemoptysis. No abdominal pain. CURRENT MEDICATIONS: Include Solu-Medrol 40 q.8, Flomax, Zithromax, ceftriaxone , heparin, Spiriva, albuterol, pantoprazole. PHYSICAL EXAMINATION: General: The patient is a cachectic male, well developed, awake, alert, appears comfortable, in no acute distress. Vital Signs: He is afebrile. Blood pressure is 104/55. Respiratory rate is 18. HEENT: Normocephalic, atraumatic. Neck: Supple. Heart: Regular. S1, S2. Chest: Bilateral crackles. Abdomen: Soft. Bowel sounds are positive. Extremities: No cyanosis or edema. LABORATORY DATA: Blood gas 7.36, pCO2 of 63, a pO2 of 80, bicarbonate of 35, and saturation of 95. WBC is 3.3, hemoglobin 11.2, hematocrit 33.8, with a platelet count of 214,000. INR is 1.07. Chemistries: BUN 22, creatinine 0.3. Chest CT reveals extensive interstitial lung disease and nodularity, pleural thickening, subpleural parenchymal cystic density consistent with bronchiectasis. There is emphysematous pneumomediastinum around the esophagus and major vesicles and superior mediastinum. Echo reveals RV systolic pressure of 50-60, mild tricuspid regurgitation, mild mitral regurgitation. IMPRESSION: [id number] hypercapnic respiratory failure secondary to: 1. Advanced interstitial lung disease, bronchiectasis. 2. Pneumomediastinum. 3. Benign prostatic hypertrophy. 4. Cachexia. 5. Chronic gastritis. 6. Pulmonary hypertension. PLAN: Inhaled bronchodilators, Solu-Medrol, antibiotics, thoracic surgical consultation, obtain followup chest x-rays, GI evaluation, also ambulatory O2 saturation prior to discharge to determine whether the patient is a candidate for home O2. Kecia [id number] MTDD
--- NOTE | 2018-08-16 21:30 | PN ---
Progress Note (short form) - Note Progress Note: Thoracic Surgery: Pneumomediastinum likely secondary to microperforation near laryngotracheal region. In patient with COPD this can be secondary to coughing fit. Please obtain CT with PO contrast of the chest and abdomen to rule out major viscus injury. Monitor vitals until ruled out. Empiric abx may be given.
[2018-08-17] MEDS: methylPREDNISolone NA SUCC 40 MG/1 ML VIAL IVPUSH SCH ×3 (02:08→17:11)
[2018-08-17] MEDS: SODIUM CHLORIDE 1,000 ML IV SCH ×2 (02:09→17:10)
[2018-08-17 07:02] LABS: ALBUMIN 2.6 g/dl (3.4-5.0); BILIRUBIN,TOTAL 0.2 mg/dL (0.2-1); BLOOD UREA NITROGEN 18.9 mg/dL (7-18); CALCIUM 8.1 mg/dL (8.5-10.1); CREATININE 0.6 mg/dL (0.55-1.3); POTASSIUM 4.2 mmol/L (3.5-5.1); TOT PROT 6.2 g/dl (6.4-8.2)
[2018-08-17] MEDS ORDERED: cefTRIAXone SODIUM 1 GM VIAL ONE (08:23)
[2018-08-17] MEDS ORDERED: DEXTROSE 5%-WATER - 50 ML IVPB ONE (08:23)
[2018-08-17] MEDS: CEFTRIAXONE 1 GM in DEXTROSE 5%-WATER - 50 ML IVPB SCH (08:44)
[2018-08-17] MEDS: TAMSULOSIN HCL 0.4 MG CAP PO SCH (08:44)
[2018-08-17] MEDS: AZITHROMYCIN IVPB 500 MG/250 ML BAG IVPB SCH (09:50)
[2018-08-17] MEDS: HEPARIN NA (PORCINE) 5,000 UNITS/ML 1ML VIAL SQ SCH ×2 (09:51→21:57)
[2018-08-17] MEDS: PANTOPRAZOLE 40 MG TABLET (FP) PO SCH ×2 (09:51→21:57)
[2018-08-17] MEDS: TIOTROPIUM BROMIDE 2.5 MCG (SPIRIVA) RESPIMAT INHALER IH SCH (09:54)
--- NOTE | 2018-08-17 10:04 | PN ---
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 Pt was consuming breakfast without assistance. No observable cough or changes in respiration and voicing at this time. Chart review indicates fair consumption of meals. Recommendations: Continue po intake of soft solids with and nectar thicken liquids at tolerated. Observe standard aspiration precautions. Provide oral care before and after meal meals. Consider nutritional supplement for weight maintenance. Consider MBS for aspiration risk. Results given verbally to charge loader and PCP via chart.
--- NOTE | 2018-08-17 11:32 | PN ---
Progress Note (short form) - Note Progress Note: Awake Dry appearing no distress refusing to drink po contrast Vital Signs - 24 hr 08/16/18 08/16/18 08/16/18 14:55 17:04 21:00 Temperature 98.4 F 97.4 F L Pulse Rate 84 78 Respiratory 20 18 Rate Blood Pressure 95/70 104/55 L O2 Sat by Pulse 99 Oximetry (%) 08/16/18 08/17/18 08/17/18 22:00 02:00 06:40 Temperature 98 F 98.7 F 98.7 F Pulse Rate 75 65 62 Respiratory 18 18 18 Rate Blood Pressure 112/62 107/57 L 119/64 O2 Sat by Pulse Oximetry (%) 08/17/18 08/17/18 08:42 09:00 Temperature 97.7 F Pulse Rate 67 Respiratory 20 Rate Blood Pressure 130/64 O2 Sat by Pulse 100 Oximetry (%) Current Medications Generic Name Dose Route Start Last Admin Trade Name Freq PRN Reason Stop Dose Admin Albuterol Sulfate 1 amp 08/15/18 17:04 Ventolin 0.083% Nebulizer Soln - NEB Q6H PRN SHORT OF BREATH/WHEEZING Heparin Sodium (Porcine) 5,000 unit 08/15/18 22:00 08/17/18 09:51 Heparin - SQ 5,000 unit BID CORAL Administration Sodium Chloride 1,000 mls @ 75 mls/hr 08/15/18 17:15 08/17/18 02:09 Normal Saline - IV 75 mls/hr ASDIR CORAL Administration Azithromycin 500 mg in 250 mls @ 250 mls/hr 08/16/18 12:00 08/17/18 09:50 Zithromax 500mg Ivpb (Pre-Docked) IVPB 250 mls/hr DAILY [facility] Administration Ceftriaxone Sodium 1 gm/ 50 mls @ 100 mls/hr 08/16/18 13:00 08/17/18 08:44 Dextrose IVPB 100 mls/hr DAILY@0800 CORAL Administration Methylprednisolone Sodium Succinate 40 mg 08/16/18 12:00 08/17/18 09:51 Solu-Medrol - IVPUSH 40 mg Q8H-IV CORAL Administration Pantoprazole Sodium 40 mg 08/15/18 22:00 08/17/18 09:51 Protonix - PO 40 mg BID CORAL Administration Tamsulosin HCl 0.4 mg 08/16/18 08:30 08/17/18 08:44 Flomax - PO 0.4 mg DAILY@0830 CORAL Administration Tiotropium [place] 2 puff 08/16/18 10:00 08/17/18 09:54 Spiriva Respimat IH Not Given DAILY [facility] Laboratory Results - last 24 hr 08/17/18 05:15 Sodium 138 Potassium 4.2 Chloride 102 Carbon Dioxide 34 H Anion Gap 2 L BUN 18.9 H Creatinine 0.6 Est GFR (CKD-EPI)AfAm 107.01 Est GFR (CKD-EPI)NonAf 92.33 Random Glucose 128 H Calcium 8.1 L Total Bilirubin 0.2 AST 13 L ALT 14 Alkaline Phosphatase 68 Total Protein 6.2 L Albumin 2.6 L S1 S2 RRR Lungs - fine crackles+ Abd- soft, NT , scaphoid no edema oral dry PLAN IV fluids echo -- normal LV function CT A chest-- no PE-- extensive COPD, emphysema, bulla spoke with CT surgeon yesterday-- ordered CT chest and abd with po contrast -- pneumomediastinum Pulmonary eval noted on Solumedrol and IV antibiotics Nebs O2 Swallow eval noted PO protonix Problem List - Problems (1) Dehydration Code(s): E86.0 - DEHYDRATION (2) Severe protein-energy malnutrition Code(s): E43 - UNSPECIFIED SEVERE PROTEIN-CALORIE MALNUTRITION (3) COPD (chronic obstructive pulmonary disease) Code(s): J44.9 - CHRONIC OBSTRUCTIVE PULMONARY DISEASE, UNSPECIFIED Qualifiers: COPD type: unspecified COPD Qualified Code(s): J44.9 - Chronic obstructive pulmonary disease, unspecified (4) Failure to thrive Code(s): [id number] - Qualifiers: Failure to thrive age range: in adult Qualified Code(s): R62.7 - Adult failure to thrive (5) Interstitial lung disease Code(s): J84.9 - INTERSTITIAL PULMONARY DISEASE, UNSPECIFIED (6) Pneumomediastinum Code(s): J98.2 - INTERSTITIAL EMPHYSEMA (7) BPH (benign prostatic hyperplasia) Code(s): N40.0 - BENIGN PROSTATIC HYPERPLASIA WITHOUT LOWER URINRY TRACT SYMP (8) Weakness generalized Code(s): R53.1 - WEAKNESS
--- NOTE | 2018-08-17 12:51 | PN ---
Progress Note (short form) - Note Progress Note: NAD. Attempting to have him drink oral contrast, which he has been refusing. Son at the bedside. Says his dad what the contrast room temperature. No acute events overnight. Intake & Output 08/14/18 08/15/18 08/16/18 08/17/18 23:59 23:59 23:59 23:59 Intake Total 120 2350 600 Output Total 650 300 Balance 120 1700 300 Weight 84 lb 0.6 oz 84 lb Last Vital Signs Temp Pulse Resp BP Pulse Ox 97.7 F 67 20 130/64 100 08/17/18 08:42 08/17/18 08:42 08/17/18 08:42 08/17/18 08:42 08/17/18 09:00 Active Medications Albuterol Sulfate (Ventolin 0.083% Nebulizer Soln -) 1 amp NEB Q6H PRN PRN Reason: SHORT OF BREATH/WHEEZING Heparin Sodium (Porcine) (Heparin -) 5,000 unit SQ BID [facility] Last Admin: 08/17/18 09:51 Dose: 5,000 unit Sodium Chloride (Normal Saline -) 1,000 mls @ 75 mls/hr IV ASDIR [facility] Last Admin: 08/17/18 02:09 Dose: 75 mls/hr Azithromycin (Zithromax 500mg Ivpb (Pre-Docked)) 500 mg in 250 mls @ 250 mls/ hr IVPB DAILY [facility] Last Admin: 08/17/18 09:50 Dose: 250 mls/hr Ceftriaxone Sodium 1 gm/ (Dextrose) 50 mls @ 100 mls/hr IVPB DAILY@0800 [facility] Last Admin: 08/17/18 08:44 Dose: 100 mls/hr Methylprednisolone Sodium Succinate (Solu-Medrol -) 40 mg IVPUSH Q8H-IV [facility] Last Admin: 08/17/18 09:51 Dose: 40 mg Pantoprazole Sodium (Protonix -) 40 mg PO BID [facility] Last Admin: 08/17/18 09:51 Dose: 40 mg Tamsulosin HCl (Flomax -) 0.4 mg PO DAILY@0830 [facility] Last Admin: 08/17/18 08:44 Dose: 0.4 mg Tiotropium [place] (Spiriva Respimat) 2 puff IH DAILY [facility] Last Admin: 08/17/18 09:54 Dose: Not Given GENERAL: Awake, alert, NAD HEAD: Normal with no signs of trauma. EYES: sclera anicteric, conjunctiva clear. No lid lag. EARS, NOSE, THROAT: Ears normal, nares patent, oropharynx clear without exudates. Moist mucous membranes. NECK: Normal range of motion, supple without lymphadenopathy, JVD, or masses. LUNGS: dimished breath sounds, . No wheezes, and no crackles. No accessory muscle use. HEART: Regular rate and rhythm, normal S1 and S2 without murmur, rub or gallop. ABDOMEN: Soft, nontender, not distended, normoactive bowel sounds, no guarding, no rebound, no masses. No hepatomegaly or splenomegaly. MUSCULOSKELETAL: Normal range of motion at all joints. No bony deformities or tenderness. No CVA tenderness. UPPER EXTREMITIES: 2+ pulses, warm, well-perfused. No cyanosis. No clubbing. No peripheral edema. LOWER EXTREMITIES: 2+ pulses, warm, well-perfused. No calf tenderness. No peripheral edema. NEUROLOGICAL: non-focal PSYCHIATRIC: Cooperative. Good eye contact. SKIN: Warm, dry, normal turgor, no rashes or lesions noted, normal capillary refill. Laboratory Results - last 24 hr 08/17/18 05:15 Sodium 138 Potassium 4.2 Chloride 102 Carbon Dioxide 34 H Anion Gap 2 L BUN 18.9 H Creatinine 0.6 Est GFR (CKD-EPI)AfAm 107.01 Est GFR (CKD-EPI)NonAf 92.33 Random Glucose 128 H Calcium 8.1 L Total Bilirubin 0.2 AST 13 L ALT 14 Alkaline Phosphatase 68 Total Protein 6.2 L Albumin 2.6 L Problem List - Problems (1) Bronchiectasis Code(s): J47.9 - BRONCHIECTASIS, UNCOMPLICATED (2) COPD (chronic obstructive pulmonary disease) Code(s): J44.9 - CHRONIC OBSTRUCTIVE PULMONARY DISEASE, UNSPECIFIED Qualifiers: COPD type: unspecified COPD Qualified Code(s): J44.9 - Chronic obstructive pulmonary disease, unspecified (3) Dehydration Code(s): E86.0 - DEHYDRATION (4) Failure to thrive Code(s): [id number] - Qualifiers: Failure to thrive age range: in adult Qualified Code(s): R62.7 - Adult failure to thrive (5) Interstitial lung disease Code(s): J84.9 - INTERSTITIAL PULMONARY DISEASE, UNSPECIFIED (6) Pneumomediastinum Code(s): J98.2 - INTERSTITIAL EMPHYSEMA (7) Severe protein-energy malnutrition Code(s): E43 - UNSPECIFIED SEVERE PROTEIN-CALORIE MALNUTRITION (8) Anemia Code(s): D64.9 - ANEMIA, UNSPECIFIED Qualifiers: Anemia type: unspecified type Qualified Code(s): D64.9 - Anemia, unspecified IMP ACUTE ON CHRONIC HYPERCAPNEIC RESPIRATORY FAILURE ILD/BRONCHIECTASIS PNEUMOMEDIASTINUM BPH CACHEXIA CHRONIC GASTRITIS PULMONARY HTN PLAN INHALED BRONCHODILATORS MEDROL ABX O2 PO CONTRAST AT ROOM TEMPERATURE TO BE GIVEN THORACIC SURGERY EVALUATION NOTED GI EVALUATION DR ROMAN
--- NOTE | 2018-08-17 16:02 | CONSULT ---
Consult Consult Specialty:: Thoracic Surgery Referred by:: Dr. Moise and Dr. Ingram Reason for Consultation:: pneumomediastinum - History of Present Illness Chief Complaint: dysphagia History of Present Illness: 83M with MMP including COPD, had episodic coughing fit and dysphagia and imaging showed pneumomediastinum. Also with weight loss over time. - History Source History Provided By: Patient, Family Member, Medical Record Limitations to Obtaining History: No Limitations - Past Medical History Pulmonary: Yes: Asthma, COPD Renal/: Yes: BPH - Past Surgical History Past Surgical History: Yes: None - Alcohol/Substance Use Hx Alcohol Use: No - Smoking History Smoking history: Never smoked Have you smoked in the past 12 months: No Aproximately how many cigarettes per day: 0 - Social History Usual Living Arrangement: With Spouse ADL: Independent Occupation: Worked as [employer] in [place] History of Recent Travel: No Home Medications - Allergies Allergies/Adverse Reactions: Allergies Allergy/AdvReac Type Severity Reaction Status Date / Time fish derived [Fish derived] Allergy Verified 08/15/18 12:03 Shellfish Allergy Verified 08/15/18 12:03 - Home Medications Home Medications: Ambulatory Orders Tiotropium [place] [Spiriva] 18 mcg IH BID 03/17/13 Albuterol 0.083% Nebulizer [place] [Ventolin 0.083% Nebulizer Soln -] 1 amp NEB Q6H PRN #20 amp 01/25/18 Pantoprazole Sodium [Protonix -] 40 mg PO BID #28 tablet.ec 01/25/18 Tamsulosin HCl [Flomax -] 0.4 mg PO DAILY@0830 #30 cap.er.24h 01/25/18 Methylprednisolone [Medrol Dose [place]] 4 mg PO ASDIR #21 tablet 07/11/18 Family Disease History - Family Disease History Family History: Unremarkable Family Disease History: Other: Father (: 97 of "Old Age"), Mother (: Age 40: "fever"), Brother (1: from alcoholic complications), Son (2, healthy), Daughter (5, healthy) Review of Systems - Review of Systems Constitutional: reports: Unintentional Wgt. Loss HENT: reports: Difficult Swallowing Physical Exam Vital Signs: Vital Signs Temperature 98.6 F 08/17/18 14:55 Pulse Rate 88 08/17/18 14:55 Respiratory Rate 20 08/17/18 14:55 Blood Pressure 112/58 L 08/17/18 14:55 O2 Sat by Pulse Oximetry (%) 100 08/17/18 09:00 Constitutional: Yes: Cachectic Eyes: Yes: WNL Neck: Yes: Supple Cardiovascular: Yes: Regular Rate and Rhythm Respiratory: Yes: Poor Air Entry Gastrointestinal: Yes: Soft Labs: CBC, BMP 08/16/18 06:10 08/17/18 05:15 Imaging - Results Chest X-ray: Image Reviewed Cat Scan: Image Reviewed Problem List - Problems (1) COPD (chronic obstructive pulmonary disease) Code(s): J44.9 - CHRONIC OBSTRUCTIVE PULMONARY DISEASE, UNSPECIFIED Qualifiers: COPD type: unspecified COPD Qualified Code(s): J44.9 - Chronic obstructive pulmonary disease, unspecified (2) Interstitial lung disease Code(s): J84.9 - INTERSTITIAL PULMONARY DISEASE, UNSPECIFIED (3) Pneumomediastinum Code(s): J98.2 - INTERSTITIAL EMPHYSEMA (4) Severe protein-energy malnutrition Code(s): E43 - UNSPECIFIED SEVERE PROTEIN-CALORIE MALNUTRITION Assessment/Plan Pneumomediastinum, CT shows no extravasation. Likely microperf secondary to coughing fit (near larynx). -F/U official report; -Consider outpt ENT and GI endoscopy;
[2018-08-18] MEDS: methylPREDNISolone NA SUCC 40 MG/1 ML VIAL IVPUSH SCH ×2 (02:23→09:04)
[2018-08-18] MEDS: SODIUM CHLORIDE 1,000 ML IV SCH ×2 (05:50→22:28)
[2018-08-18] MEDS ORDERED: cefTRIAXone SODIUM 1 GM VIAL ONE (08:26)
[2018-08-18] MEDS ORDERED: DEXTROSE 5%-WATER - 50 ML IVPB ONE (08:26)
[2018-08-18] MEDS: CEFTRIAXONE 1 GM in DEXTROSE 5%-WATER - 50 ML IVPB SCH (09:01)
[2018-08-18] MEDS: PANTOPRAZOLE 40 MG TABLET (FP) PO SCH ×2 (09:04→22:23)
[2018-08-18] MEDS: TAMSULOSIN HCL 0.4 MG CAP PO SCH (09:04)
[2018-08-18] MEDS: HEPARIN NA (PORCINE) 5,000 UNITS/ML 1ML VIAL SQ SCH ×2 (09:10→22:23)
[2018-08-18] MEDS: AZITHROMYCIN IVPB 500 MG/250 ML BAG IVPB SCH (09:34)
[2018-08-18] MEDS: TIOTROPIUM BROMIDE 2.5 MCG (SPIRIVA) RESPIMAT INHALER IH SCH (09:53)
--- NOTE | 2018-08-18 10:43 | PN ---
Progress Note, HOUSE RN - Note Progress Note: 83M with MMP including COPD, had episodic coughing fit and dysphagia and imaging showed pneumomediastinum. Also with weight loss over time. ACUTE ON CHRONIC HYPERCAPNEIC RESPIRATORY FAILURE ILD/BRONCHIECTASIS PNEUMOMEDIASTINUM BPH CACHEXIA CHRONIC GASTRITIS PULMONARY HTN On reg diet/nectar thick liquid. Selected Entries 08/16/18 08/16/18 08/17/18 16:04 22:06 02:00 Breakfast 100% Lunch 50% Supper 0 Temperature 98.7 F 08/17/18 08/17/18 08/17/18 06:40 08:42 14:55 Breakfast Lunch Supper Temperature 98.7 F 97.7 F 98.6 F 08/17/18 08/17/18 08/17/18 17:40 21:00 21:57 Breakfast Lunch Supper 50% Temperature 97.5 F L 97.4 F L 08/18/18 08/18/18 08/18/18 03:20 06:00 09:15 Breakfast Lunch Supper Temperature 97.3 F L 97.0 F L 97 F L Laboratory Tests 08/16/18 06:10 WBC 3.3 [address] [place] thick liquidswere ordered as pt was on 02 and coughing, Seems improved per EMR. Bottle of water at bedside, refused nectar thick liquid yesterday. Swallowing reassessed. (-) 3oz water test. Good voice. Suggest trial of thin liquids. If coughing responsively, nectar and MBS.
--- NOTE | 2018-08-18 12:16 | PN ---
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 EYES: sclera anicteric, conjunctiva clear. No lid lag. EARS, NOSE, THROAT: Ears normal, nares patent, oropharynx clear without exudates. Moist mucous membranes. NECK: Normal range of motion, supple without lymphadenopathy, JVD, or masses. LUNGS: dimished breath sounds, . No wheezes, and no crackles. No accessory muscle use. HEART: Regular rate and rhythm, normal S1 and S2 without murmur, rub or gallop. ABDOMEN: Soft, nontender, not distended, normoactive bowel sounds, no guarding, no rebound, no masses. No hepatomegaly or splenomegaly. MUSCULOSKELETAL: Normal range of motion at all joints. No bony deformities or tenderness. No CVA tenderness. UPPER EXTREMITIES: 2+ pulses, warm, well-perfused. No cyanosis. No clubbing. No peripheral edema. LOWER EXTREMITIES: 2+ pulses, warm, well-perfused. No calf tenderness. No peripheral edema. NEUROLOGICAL: non-focal PSYCHIATRIC: Cooperative. Good eye contact. SKIN: Warm, dry, normal turgor, no rashes or lesions noted, normal capillary refill. LABS/MEDS/NOTES/IMAGES REVIEWED T-SURG CONSULT NOTED (1) Bronchiectasis Code(s): J47.9 - BRONCHIECTASIS, UNCOMPLICATED (2) COPD (chronic obstructive pulmonary disease) Code(s): J44.9 - CHRONIC OBSTRUCTIVE PULMONARY DISEASE, UNSPECIFIED Qualifiers: COPD type: unspecified COPD Qualified Code(s): J44.9 - Chronic obstructive pulmonary disease, unspecified (3) Dehydration Code(s): E86.0 - DEHYDRATION (4) Failure to thrive Code(s): [id number] - Qualifiers: Failure to thrive age range: in adult Qualified Code(s): R62.7 - Adult failure to thrive (5) Interstitial lung disease Code(s): J84.9 - INTERSTITIAL PULMONARY DISEASE, UNSPECIFIED (6) Pneumomediastinum Code(s): J98.2 - INTERSTITIAL EMPHYSEMA (7) Severe protein-energy malnutrition Code(s): E43 - UNSPECIFIED SEVERE PROTEIN-CALORIE MALNUTRITION (8) Anemia Code(s): D64.9 - ANEMIA, UNSPECIFIED Qualifiers: Anemia type: unspecified type Qualified Code(s): D64.9 - Anemia, unspecified IMP ACUTE ON CHRONIC HYPERCAPNEIC RESPIRATORY FAILURE ILD/BRONCHIECTASIS PNEUMOMEDIASTINUM BPH CACHEXIA CHRONIC GASTRITIS PULMONARY HTN PLAN INHALED BRONCHODILATORS MEDROL TO TAPER ABX O2 PO CONTRAST AT ROOM TEMPERATURE TO BE GIVEN THORACIC SURGERY EVALUATION NOTED GI EVALUATION Alonso CONTE MD
--- NOTE | 2018-08-18 14:28 | PN ---
Progress Note (short form) - Note Progress Note: pt seen/ examined chart reviewed awake/ comfortable denies pain son at bedside. Vital Signs Temp 97 F L 08/18/18 09:15 Pulse 69 08/18/18 09:15 Resp 18 08/18/18 09:15 BP 131/62 08/18/18 09:15 Pulse Ox 97 08/18/18 09:00 Intake & Output 08/17/18 08/18/18 08/18/18 23:59 11:59 23:59 Intake Total 375 525 Output Total 550 900 Balance -175 -375 Intake: IV 375 525 SL 375 525 Output: Urine 550 900 Void 550 900 Other: Voiding Method Urinal Urinal # Unmeasured Voids Void 2 Active Medications Albuterol Sulfate (Ventolin 0.083% Nebulizer Soln -) 1 amp NEB Q6H PRN PRN Reason: SHORT OF BREATH/WHEEZING Heparin Sodium (Porcine) (Heparin -) 5,000 unit SQ BID [facility] Last Admin: 08/18/18 09:10 Dose: 5,000 unit Sodium Chloride (Normal Saline -) 1,000 mls @ 75 mls/hr IV ASDIR [facility] Last Admin: 08/18/18 05:50 Dose: 75 mls/hr Azithromycin (Zithromax 500mg Ivpb (Pre-Docked)) 500 mg in 250 mls @ 250 mls/ hr IVPB DAILY [facility] Last Admin: 08/18/18 09:34 Dose: 250 mls/hr Ceftriaxone Sodium 1 gm/ (Dextrose) 50 mls @ 100 mls/hr IVPB DAILY@0800 [facility] Last Admin: 08/18/18 09:01 Dose: 100 mls/hr Pantoprazole Sodium (Protonix -) 40 mg PO BID [facility] Last Admin: 08/18/18 09:04 Dose: 40 mg Prednisone (Deltasone -) 20 mg PO DAILY [facility] Tamsulosin HCl (Flomax -) 0.4 mg PO DAILY@0830 [facility] Last Admin: 08/18/18 09:04 Dose: 0.4 mg Tiotropium [place] (Spiriva Respimat) 2 puff IH DAILY [facility] Last Admin: 08/18/18 09:53 Dose: 2 puff CBC, BMP 08/16/18 06:10 08/17/18 05:15 Microbiology 08/15/18 12:57 Blood Culture - Preliminary Blood - Peripheral Venous NO GROWTH OBTAINED AFTER 72 HOURS, INCUBATION TO CONTINUE FOR 2 DAYS. 08/15/18 12:40 Blood Culture - Preliminary Blood - Peripheral Venous NO GROWTH OBTAINED AFTER 72 HOURS, INCUBATION TO CONTINUE FOR 2 DAYS. Physical exam awake cachectic S1 S2 RRR Lungs - diminished Abd- soft, NT , scaphoid no edema A/P Better continue present care oob - chair d/c fluids in am abx steroids will follow Discussed with son also Problem List - Problems (1) Dehydration Code(s): E86.0 - DEHYDRATION (2) Severe protein-energy malnutrition Code(s): E43 - UNSPECIFIED SEVERE PROTEIN-CALORIE MALNUTRITION (3) COPD (chronic obstructive pulmonary disease) Code(s): J44.9 - CHRONIC OBSTRUCTIVE PULMONARY DISEASE, UNSPECIFIED Qualifiers: COPD type: unspecified COPD Qualified Code(s): J44.9 - Chronic obstructive pulmonary disease, unspecified (4) Failure to thrive Code(s): [id number] - Qualifiers: Failure to thrive age range: in adult Qualified Code(s): R62.7 - Adult failure to thrive (5) Interstitial lung disease Code(s): J84.9 - INTERSTITIAL PULMONARY DISEASE, UNSPECIFIED (6) Pneumomediastinum Code(s): J98.2 - INTERSTITIAL EMPHYSEMA (7) BPH (benign prostatic hyperplasia) Code(s): N40.0 - BENIGN PROSTATIC HYPERPLASIA WITHOUT LOWER URINRY TRACT SYMP (8) Weakness generalized Code(s): R53.1 - WEAKNESS
[2018-08-18] MEDS: predniSONE 20 MG TABLET (UD) PO SCH (15:56)
[2018-08-19] MEDS ORDERED: DEXTROSE 5%-WATER - 50 ML IVPB ONE (08:31)
[2018-08-19] MEDS ORDERED: cefTRIAXone SODIUM 1 GM VIAL ONE (08:31)
[2018-08-19] MEDS: TAMSULOSIN HCL 0.4 MG CAP PO SCH (08:51)
[2018-08-19] MEDS: CEFTRIAXONE 1 GM in DEXTROSE 5%-WATER - 50 ML IVPB SCH (08:52)
[2018-08-19] MEDS ORDERED: PT OWN MED DRAWER 7, Y5N ONE (09:02)
[2018-08-19] MEDS: HEPARIN NA (PORCINE) 5,000 UNITS/ML 1ML VIAL SQ SCH ×2 (09:15→22:05)
[2018-08-19] MEDS: AZITHROMYCIN IVPB 500 MG/250 ML BAG IVPB SCH (09:15)
[2018-08-19] MEDS: PANTOPRAZOLE 40 MG TABLET (FP) PO SCH ×2 (09:15→22:05)
[2018-08-19] MEDS: predniSONE 20 MG TABLET (UD) PO SCH (09:16)
[2018-08-19] MEDS: TIOTROPIUM BROMIDE 2.5 MCG (SPIRIVA) RESPIMAT INHALER IH SCH (09:17)
--- NOTE | 2018-08-19 09:44 | PN ---
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 EYES: sclera anicteric, conjunctiva clear. No lid lag. EARS, NOSE, THROAT: Ears normal, nares patent, oropharynx clear without exudates. Moist mucous membranes. NECK: Normal range of motion, supple without lymphadenopathy, JVD, or masses. LUNGS: dimished breath sounds, . No wheezes, and no crackles. No accessory muscle use. HEART: Regular rate and rhythm, normal S1 and S2 without murmur, rub or gallop. ABDOMEN: Soft, nontender, not distended, normoactive bowel sounds, no guarding, no rebound, no masses. No hepatomegaly or splenomegaly. MUSCULOSKELETAL: Normal range of motion at all joints. No bony deformities or tenderness. No CVA tenderness. UPPER EXTREMITIES: 2+ pulses, warm, well-perfused. No cyanosis. No clubbing. No peripheral edema. LOWER EXTREMITIES: 2+ pulses, warm, well-perfused. No calf tenderness. No peripheral edema. NEUROLOGICAL: non-focal PSYCHIATRIC: Cooperative. Good eye contact. SKIN: Warm, dry, normal turgor, no rashes or lesions noted, normal capillary refill. LABS/MEDS/NOTES/IMAGES REVIEWED T-SURG CONSULT NOTED (1) Bronchiectasis Code(s): J47.9 - BRONCHIECTASIS, UNCOMPLICATED (2) COPD (chronic obstructive pulmonary disease) Code(s): J44.9 - CHRONIC OBSTRUCTIVE PULMONARY DISEASE, UNSPECIFIED Qualifiers: COPD type: unspecified COPD Qualified Code(s): J44.9 - Chronic obstructive pulmonary disease, unspecified (3) Dehydration Code(s): E86.0 - DEHYDRATION (4) Failure to thrive Code(s): [id number] - Qualifiers: Failure to thrive age range: in adult Qualified Code(s): R62.7 - Adult failure to thrive (5) Interstitial lung disease Code(s): J84.9 - INTERSTITIAL PULMONARY DISEASE, UNSPECIFIED (6) Pneumomediastinum Code(s): J98.2 - INTERSTITIAL EMPHYSEMA (7) Severe protein-energy malnutrition Code(s): E43 - UNSPECIFIED SEVERE PROTEIN-CALORIE MALNUTRITION (8) Anemia Code(s): D64.9 - ANEMIA, UNSPECIFIED Qualifiers: Anemia type: unspecified type Qualified Code(s): D64.9 - Anemia, unspecified IMP ACUTE ON CHRONIC HYPERCAPNEIC RESPIRATORY FAILURE ILD/BRONCHIECTASIS PNEUMOMEDIASTINUM BPH CACHEXIA CHRONIC GASTRITIS PULMONARY HTN PLAN INHALED BRONCHODILATORS MEDROL TO TAPER ABX O2 PO CONTRAST AT ROOM TEMPERATURE TO BE GIVEN THORACIC SURGERY EVALUATION NOTED GI EVALUATION Alonso CONTE MD
--- NOTE | 2018-08-19 16:52 | PN ---
Progress Note (short form) - Note Progress Note: Awake no distress daughter at bedside pt has pain in arm Vital Signs - 24 hr 08/18/18 08/18/18 08/19/18 17:33 21:00 02:00 Temperature 97.3 F L 97.6 F Pulse Rate 75 63 Respiratory 20 20 Rate Blood Pressure 142/73 140/75 O2 Sat by Pulse 97 Oximetry (%) 08/19/18 08/19/18 09:00 14:15 Temperature 97.2 F L 98.3 F Pulse Rate 73 80 Respiratory 20 20 Rate Blood Pressure 125/75 113/57 L O2 Sat by Pulse 97 Oximetry (%) Current Medications Generic Name Dose Route Start Last Admin Trade Name Freq PRN Reason Stop Dose Admin Albuterol Sulfate 1 amp 08/15/18 17:04 Ventolin 0.083% Nebulizer Soln - NEB Q6H PRN SHORT OF BREATH/WHEEZING Heparin Sodium (Porcine) 5,000 unit 08/15/18 22:00 08/19/18 09:15 Heparin - SQ 5,000 unit BID CORAL Administration Sodium Chloride 1,000 mls @ 75 mls/hr 08/15/18 17:15 08/18/18 22:28 Normal Saline - IV 75 mls/hr ASDIR CORAL Administration Azithromycin 500 mg in 250 mls @ 250 mls/hr 08/16/18 12:00 08/19/18 09:15 Zithromax 500mg Ivpb (Pre-Docked) IVPB 250 mls/hr DAILY CORAL Administration Ceftriaxone Sodium 1 gm/ 50 mls @ 100 mls/hr 08/16/18 13:00 08/19/18 08:52 Dextrose IVPB 100 mls/hr DAILY@0800 CORAL Administration Pantoprazole Sodium 40 mg 08/15/18 22:00 08/19/18 09:15 Protonix - PO 40 mg BID CORAL Administration Prednisone 20 mg 08/18/18 15:00 08/19/18 09:16 Deltasone - PO 20 mg DAILY CORAL Administration Tamsulosin HCl 0.4 mg 08/16/18 08:30 08/19/18 08:51 Flomax - PO 0.4 mg DAILY@0830 CORAL Administration Tiotropium [place] 2 puff 08/16/18 10:00 08/19/18 09:17 Spiriva Respimat IH 2 puff DAILY CORAL Administration S1 S2 RRR Lungs - decreased breath sounds Abd- soft, NT , scaphoid no edema oral dry PLAN IV fluids-- dc echo -- normal LV function ct with po contrast-- no extravasation,improved pneumomediastinum Pulmonary eval noted on po prednisone and IV antibiotics Nebs O2 Swallow eval noted PO protonix ENT as outpt pt walks with one person assist-- 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,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 Problem List - Problems (1) Dehydration Code(s): E86.0 - DEHYDRATION (2) Severe protein-energy malnutrition Code(s): E43 - UNSPECIFIED SEVERE PROTEIN-CALORIE MALNUTRITION (3) COPD (chronic obstructive pulmonary disease) Code(s): J44.9 - CHRONIC OBSTRUCTIVE PULMONARY DISEASE, UNSPECIFIED Qualifiers: COPD type: unspecified COPD Qualified Code(s): J44.9 - Chronic obstructive pulmonary disease, unspecified (4) Failure to thrive Code(s): [id number] - Qualifiers: Failure to thrive age range: in adult Qualified Code(s): R62.7 - Adult failure to thrive (5) Interstitial lung disease Code(s): J84.9 - INTERSTITIAL PULMONARY DISEASE, UNSPECIFIED (6) Pneumomediastinum Code(s): J98.2 - INTERSTITIAL EMPHYSEMA (7) BPH (benign prostatic hyperplasia) Code(s): N40.0 - BENIGN PROSTATIC HYPERPLASIA WITHOUT LOWER URINRY TRACT SYMP (8) Weakness generalized Code(s): R53.1 - WEAKNESS
[2018-08-19] MEDS ORDERED: ACETAMINOPHEN 325 MG TABLET (FP) PO PRN (17:35)
[2018-08-19] MEDS: SODIUM CHLORIDE 1,000 ML IV SCH (18:27)
--- NOTE | 2018-08-20 09:08 | PN ---
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 EYES: sclera anicteric, conjunctiva clear. No lid lag. EARS, NOSE, THROAT: Ears normal, nares patent, oropharynx clear without exudates. Moist mucous membranes. NECK: Normal range of motion, supple without lymphadenopathy, JVD, or masses. LUNGS: dimished breath sounds, . No wheezes, and no crackles. No accessory muscle use. HEART: Regular rate and rhythm, normal S1 and S2 without murmur, rub or gallop. ABDOMEN: Soft, nontender, not distended, normoactive bowel sounds, no guarding, no rebound, no masses. No hepatomegaly or splenomegaly. MUSCULOSKELETAL: Normal range of motion at all joints. No bony deformities or tenderness. No CVA tenderness. UPPER EXTREMITIES: 2+ pulses, warm, well-perfused. No cyanosis. No clubbing. No peripheral edema. LOWER EXTREMITIES: 2+ pulses, warm, well-perfused. No calf tenderness. No peripheral edema. NEUROLOGICAL: non-focal PSYCHIATRIC: Cooperative. Good eye contact. SKIN: Warm, dry, normal turgor, no rashes or lesions noted, normal capillary refill. LABS/MEDS/NOTES/IMAGES REVIEWED T-SURG CONSULT NOTED (1) Bronchiectasis Code(s): J47.9 - BRONCHIECTASIS, UNCOMPLICATED (2) COPD (chronic obstructive pulmonary disease) Code(s): J44.9 - CHRONIC OBSTRUCTIVE PULMONARY DISEASE, UNSPECIFIED Qualifiers: COPD type: unspecified COPD Qualified Code(s): J44.9 - Chronic obstructive pulmonary disease, unspecified (3) Dehydration Code(s): E86.0 - DEHYDRATION (4) Failure to thrive Code(s): [id number] - Qualifiers: Failure to thrive age range: in adult Qualified Code(s): R62.7 - Adult failure to thrive (5) Interstitial lung disease Code(s): J84.9 - INTERSTITIAL PULMONARY DISEASE, UNSPECIFIED (6) Pneumomediastinum Code(s): J98.2 - INTERSTITIAL EMPHYSEMA (7) Severe protein-energy malnutrition Code(s): E43 - UNSPECIFIED SEVERE PROTEIN-CALORIE MALNUTRITION (8) Anemia Code(s): D64.9 - ANEMIA, UNSPECIFIED Qualifiers: Anemia type: unspecified type Qualified Code(s): D64.9 - Anemia, unspecified IMP ACUTE ON CHRONIC HYPERCAPNEIC RESPIRATORY FAILURE ILD/BRONCHIECTASIS PNEUMOMEDIASTINUM BPH CACHEXIA CHRONIC GASTRITIS PULMONARY HTN PLAN INHALED BRONCHODILATORS PREDNISONE ABX O2 PO CONTRAST AT ROOM TEMPERATURE TO BE GIVEN THORACIC SURGERY EVALUATION NOTED GI EVALUATION Alonso CONTE MD
--- NOTE | 2018-08-20 09:09 | PN ---
Progress Note (short form) - Note Progress Note: Awake no distress Vital Signs - 24 hr 08/19/18 08/19/18 08/19/18 18:00 21:00 22:00 Temperature 97.4 F L 98.1 F Pulse Rate 107 H 84 Respiratory 18 18 Rate Blood Pressure 130/73 117/64 O2 Sat by Pulse 97 Oximetry (%) 08/20/18 08/20/18 08/20/18 10:00 12:17 13:54 Temperature 98.2 F 98.3 F Pulse Rate 78 83 Respiratory 24 H 22 H Rate Blood Pressure 128/63 115/70 O2 Sat by Pulse 94 L Oximetry (%) Current Medications Generic Name Dose Route Start Last Admin Trade Name Freq PRN Reason Stop Dose Admin Acetaminophen 650 mg 08/19/18 17:35 Tylenol - PO Q6H PRN PAIN OR FEVER Albuterol Sulfate 1 amp 08/15/18 17:04 Ventolin 0.083% Nebulizer Soln - NEB Q6H PRN SHORT OF BREATH/WHEEZING Heparin Sodium (Porcine) 5,000 unit 08/15/18 22:00 08/20/18 10:56 Heparin - SQ 5,000 unit BID CORAL Administration Sodium Chloride 1,000 mls @ 75 mls/hr 08/15/18 17:15 08/19/18 18:27 Normal Saline - IV 75 mls/hr ASDIR CORAL Administration Azithromycin 500 mg in 250 mls @ 250 mls/hr 08/16/18 12:00 08/20/18 10:20 Zithromax 500mg Ivpb (Pre-Docked) IVPB 250 mls/hr DAILY CORAL Administration Ceftriaxone Sodium 1 gm/ 50 mls @ 100 mls/hr 08/16/18 13:00 08/20/18 10:16 Dextrose IVPB 100 mls/hr DAILY@0800 CORAL Administration Pantoprazole Sodium 40 mg 08/15/18 22:00 08/20/18 10:21 Protonix - PO 40 mg BID CORAL Administration Prednisone 20 mg 08/18/18 15:00 08/20/18 10:21 Deltasone - PO 20 mg DAILY CORAL Administration Tamsulosin HCl 0.4 mg 08/16/18 08:30 08/20/18 10:21 Flomax - PO 0.4 mg DAILY@0830 CORAL Administration Tiotropium [place] 2 puff 08/16/18 10:00 08/20/18 10:34 Spiriva Respimat IH 2 puff DAILY CORAL Administration S1 S2 RRR Lungs - decreased breath sounds Abd- soft, NT , scaphoid no edema oral dry PLAN IV fluids-- dc echo -- normal LV function ct with po contrast-- no extravasation,improved pneumomediastinum Pulmonary eval noted on po prednisone and IV antibiotics Nebs O2 Swallow eval noted PO protonix ENT as outpt pt walks with one person assist-- 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,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 Problem List - Problems (1) Dehydration Code(s): E86.0 - DEHYDRATION (2) Severe protein-energy malnutrition Code(s): E43 - UNSPECIFIED SEVERE PROTEIN-CALORIE MALNUTRITION (3) COPD (chronic obstructive pulmonary disease) Code(s): J44.9 - CHRONIC OBSTRUCTIVE PULMONARY DISEASE, UNSPECIFIED Qualifiers: COPD type: unspecified COPD Qualified Code(s): J44.9 - Chronic obstructive pulmonary disease, unspecified (4) Failure to thrive Code(s): [id number] - Qualifiers: Failure to thrive age range: in adult Qualified Code(s): R62.7 - Adult failure to thrive (5) Interstitial lung disease Code(s): J84.9 - INTERSTITIAL PULMONARY DISEASE, UNSPECIFIED (6) Pneumomediastinum Code(s): J98.2 - INTERSTITIAL EMPHYSEMA (7) BPH (benign prostatic hyperplasia) Code(s): N40.0 - BENIGN PROSTATIC HYPERPLASIA WITHOUT LOWER URINRY TRACT SYMP (8) Weakness generalized Code(s): R53.1 - WEAKNESS
[2018-08-20] MEDS ORDERED: DEXTROSE 5%-WATER - 50 ML IVPB ONE (10:12)
[2018-08-20] MEDS ORDERED: cefTRIAXone SODIUM 1 GM VIAL ONE (10:12)
[2018-08-20] MEDS: CEFTRIAXONE 1 GM in DEXTROSE 5%-WATER - 50 ML IVPB SCH (10:16)
[2018-08-20] MEDS: AZITHROMYCIN IVPB 500 MG/250 ML BAG IVPB SCH (10:20)
[2018-08-20] MEDS: predniSONE 20 MG TABLET (UD) PO SCH (10:21)
[2018-08-20] MEDS: PANTOPRAZOLE 40 MG TABLET (FP) PO SCH ×2 (10:21→22:40)
[2018-08-20] MEDS: TAMSULOSIN HCL 0.4 MG CAP PO SCH (10:21)
[2018-08-20] MEDS: HEPARIN NA (PORCINE) 5,000 UNITS/ML 1ML VIAL SQ SCH ×3 (10:23→22:41)
[2018-08-20] MEDS: TIOTROPIUM BROMIDE 2.5 MCG (SPIRIVA) RESPIMAT INHALER IH SCH (10:34)
[2018-08-20] MEDS: SODIUM CHLORIDE 1,000 ML IV SCH (17:06)
[2018-08-21] MEDS ORDERED: cefTRIAXone SODIUM 1 GM VIAL ONE (09:14)
[2018-08-21] MEDS ORDERED: DEXTROSE 5%-WATER - 50 ML IVPB ONE (09:14)
[2018-08-21] MEDS: CEFTRIAXONE 1 GM in DEXTROSE 5%-WATER - 50 ML IVPB SCH (09:18)
[2018-08-21] MEDS: TAMSULOSIN HCL 0.4 MG CAP PO SCH (09:18)
[2018-08-21] MEDS ORDERED: PT OWN MED DRAWER 7, Y5N ONE (09:40)
[2018-08-21] MEDS: predniSONE 20 MG TABLET (UD) PO SCH (09:43)
[2018-08-21] MEDS: AZITHROMYCIN IVPB 500 MG/250 ML BAG IVPB SCH (09:43)
[2018-08-21] MEDS: HEPARIN NA (PORCINE) 5,000 UNITS/ML 1ML VIAL SQ SCH (09:43)
[2018-08-21] MEDS: PANTOPRAZOLE 40 MG TABLET (FP) PO SCH (09:45)
[2018-08-21] MEDS: TIOTROPIUM BROMIDE 2.5 MCG (SPIRIVA) RESPIMAT INHALER IH SCH (09:45)
--- NOTE | 2018-08-21 10:01 | EKG ---
Test Reason : Blood Pressure : / mmHG Vent. Rate : 097 BPM Atrial Rate : 097 BPM P-R Int : 136 ms QRS Dur : 072 ms QT Int : 334 ms P-R-T Axes : 049 -39 047 degrees QTc Int : 424 ms SINUS RHYTHM WITH PREMATURE SUPRAVENTRICULAR COMPLEXES LEFT AXIS DEVIATION ABNORMAL ECG WHEN COMPARED WITH ECG OF 15-AUG-2018 12:09, NO SIGNIFICANT CHANGE WAS FOUND Confirmed by JACKELIN CHOWDARY MD ([id number]) on 08/21/2018 10:00:38 AM Referred By: Confirmed By:JACKELIN CHOWDARY MD
--- NOTE | 2018-08-21 12:06 | PN ---
Progress Note, Physician History of Present Illness: PULMONARY ALERT,NO DISTRESS,-CP,-SOB - Current Medication List Current Medications: Active Medications Acetaminophen (Tylenol -) 650 mg PO Q6H PRN PRN Reason: PAIN OR FEVER Albuterol Sulfate (Ventolin 0.083% Nebulizer Soln -) 1 amp NEB Q6H PRN PRN Reason: SHORT OF BREATH/WHEEZING Heparin Sodium (Porcine) (Heparin -) 5,000 unit SQ BID [facility] Last Admin: 08/21/18 09:43 Dose: 5,000 unit Sodium Chloride (Normal Saline -) 1,000 mls @ 75 mls/hr IV ASDIR [facility] Last Admin: 08/20/18 17:06 Dose: 75 mls/hr Azithromycin (Zithromax 500mg Ivpb (Pre-Docked)) 500 mg in 250 mls @ 250 mls/ hr IVPB DAILY [facility] Last Admin: 08/21/18 09:43 Dose: 250 mls/hr Ceftriaxone Sodium 1 gm/ (Dextrose) 50 mls @ 100 mls/hr IVPB DAILY@0800 [facility] Last Admin: 08/21/18 09:18 Dose: 100 mls/hr Pantoprazole Sodium (Protonix -) 40 mg PO BID [facility] Last Admin: 08/21/18 09:45 Dose: 40 mg Prednisone (Deltasone -) 20 mg PO DAILY [facility] Last Admin: 08/21/18 09:43 Dose: 20 mg Tamsulosin HCl (Flomax -) 0.4 mg PO DAILY@0830 [facility] Last Admin: 08/21/18 09:18 Dose: 0.4 mg Tiotropium [place] (Spiriva Respimat) 2 puff IH DAILY [facility] Last Admin: 08/21/18 09:45 Dose: 2 puff - Objective Vital Signs: Vital Signs Temperature 97.2 F L 08/21/18 10:00 Pulse Rate 78 08/21/18 10:00 Respiratory Rate 18 08/21/18 10:00 Blood Pressure 128/71 08/21/18 10:00 O2 Sat by Pulse Oximetry (%) 96 08/21/18 09:00 Constitutional: Yes: Calm, Thin Eyes: Yes: WNL HENT: Yes: WNL Neck: Yes: WNL Cardiovascular: Yes: Regular Rate and Rhythm, S1 Respiratory: Yes: Diminished Gastrointestinal: Yes: Normal Bowel Sounds, Soft Extremities: Yes: WNL Edema: No Labs: CBC, BMP 08/16/18 06:10 08/17/18 05:15 INR, PTT INR 1.07 (0.83-1.09) 08/15/18 12:57 Problem List - Problems (1) Bronchiectasis Code(s): J47.9 - BRONCHIECTASIS, UNCOMPLICATED (2) COPD (chronic obstructive pulmonary disease) Code(s): J44.9 - CHRONIC OBSTRUCTIVE PULMONARY DISEASE, UNSPECIFIED Qualifiers: COPD type: unspecified COPD Qualified Code(s): J44.9 - Chronic obstructive pulmonary disease, unspecified (3) Dehydration Code(s): E86.0 - DEHYDRATION (4) Failure to thrive Code(s): [id number] - Qualifiers: Failure to thrive age range: in adult Qualified Code(s): R62.7 - Adult failure to thrive (5) Interstitial lung disease Code(s): J84.9 - INTERSTITIAL PULMONARY DISEASE, UNSPECIFIED (6) Pneumomediastinum Code(s): J98.2 - INTERSTITIAL EMPHYSEMA (7) Severe protein-energy malnutrition Code(s): E43 - UNSPECIFIED SEVERE PROTEIN-CALORIE MALNUTRITION (8) Anemia Code(s): D64.9 - ANEMIA, UNSPECIFIED Qualifiers: Anemia type: unspecified type Qualified Code(s): D64.9 - Anemia, unspecified Assessment/Plan (1) Bronchiectasis Code(s): J47.9 - BRONCHIECTASIS, UNCOMPLICATED (2) COPD (chronic obstructive pulmonary disease) Code(s): J44.9 - CHRONIC OBSTRUCTIVE PULMONARY DISEASE, UNSPECIFIED Qualifiers: COPD type: unspecified COPD Qualified Code(s): J44.9 - Chronic obstructive pulmonary disease, unspecified (3) Dehydration Code(s): E86.0 - DEHYDRATION (4) Failure to thrive Code(s): [id number] - Qualifiers: Failure to thrive age range: in adult Qualified Code(s): R62.7 - Adult failure to thrive (5) Interstitial lung disease Code(s): J84.9 - INTERSTITIAL PULMONARY DISEASE, UNSPECIFIED (6) Pneumomediastinum Code(s): J98.2 - INTERSTITIAL EMPHYSEMA (7) Severe protein-energy malnutrition Code(s): E43 - UNSPECIFIED SEVERE PROTEIN-CALORIE MALNUTRITION (8) Anemia Code(s): D64.9 - ANEMIA, UNSPECIFIED Qualifiers: Anemia type: unspecified type Qualified Code(s): D64.9 - Anemia, unspecified IMP ACUTE ON CHRONIC HYPERCAPNEIC RESPIRATORY FAILURE IMPROVED ILD/BRONCHIECTASIS PNEUMOMEDIASTINUM BPH CACHEXIA CHRONIC GASTRITIS PULMONARY HTN PLAN INHALED BRONCHODILATORS PREDNISONE ABX O2 CHEST X-RAY TODAY DR BROWN
--- NOTE | 2018-08-21 13:09 | DS ---
Physical Examination Vital Signs: Vital Signs Temperature 97.2 F L 08/21/18 10:00 Pulse Rate 78 08/21/18 10:00 Respiratory Rate 18 08/21/18 10:00 Blood Pressure 128/71 08/21/18 10:00 O2 Sat by Pulse Oximetry (%) 96 08/21/18 09:00 Findings/Remarks: feels well wants to go home Constitutional: Yes: No Distress, Calm Neck: Yes: Supple Cardiovascular: Yes: Regular Rate and Rhythm Respiratory: Yes: CTA Bilaterally Gastrointestinal: Yes: Soft Edema: No Neurological: Yes: Alert Psychiatric: Yes: Alert Labs: CBC, BMP 08/16/18 06:10 08/17/18 05:15 Discharge Summary Reason For Visit: FAILURE TO THRIVE Current Active Problems Bronchiectasis (Acute) COPD (chronic obstructive pulmonary disease) (Acute) Dehydration (Acute) Failure to thrive (Acute) Interstitial lung disease (Acute) Pneumomediastinum (Acute) Severe protein-energy malnutrition (Acute) Hospital Course: much better eating better stable for d/c home f/u in office one week meds reconcilled d.c abx discussed with nursing staff also. Condition: Stable - Instructions Disposition: HOME - Home Medications Comprehensive Discharge Medication List: Ambulatory Orders Tiotropium [place] [Spiriva] 18 mcg IH BID 03/17/13 Albuterol 0.083% Nebulizer [place] [Ventolin 0.083% Nebulizer Soln -] 1 amp NEB Q6H PRN #20 amp 01/25/18 Pantoprazole Sodium [Protonix -] 40 mg PO BID #28 tablet.ec 01/25/18 Tamsulosin HCl [Flomax -] 0.4 mg PO DAILY@0830 #30 cap.er.24h 01/25/18 Acetaminophen [Tylenol .Regular Strength -] 650 mg PO Q6H PRN tablet 08/21/18 Prednisone 10 mg PO DAILY 10 Days #15 tablet 08/21/18
[2018-08-21 17:24] VITALS: BP 127/69; PULSE 88; TEMP 97.8
== END 2018-08-21 19:45 | disposition home or self-care (01) | DRG 189 ==
LOC: JER 11:55 → JERBED 15:46 → J4S 21:14
PROVIDERS: ADMIT Internal Medicine; ATTEND Internal Medicine
DX: J96.22 Acute and chronic respiratory failure with hypercapnia (principal); E43 Unspecified severe protein-calorie malnutrition; R64 Cachexia; Z68.1 Body mass index [BMI] 19.9 or less, adult; J84.9 Interstitial pulmonary disease, unspecified; J44.9 Chronic obstructive pulmonary disease, unspecified; D64.9 Anemia, unspecified; R62.7 Adult failure to thrive; J47.9 Bronchiectasis, uncomplicated; J98.2 Interstitial emphysema; E86.0 Dehydration; N40.0 Benign prostatic hyperplasia without lower urinary tract symptoms; I27.20 Pulmonary hypertension, unspecified
CPT/HCPCS: 36415; 36600; 71045-TC-FY; 71250-TC; 71275-TC; 74176-TC; 80053; 81003; 82375; 82803; 83050; 83605; 83735; 84484; 85025; 85027; 85610; 85730; 87040; 87086; 93005; 93010; 93306-TC; 97116-GP; 97161-GP; 99285-25; J1644; J7030

== ENCOUNTER 2018-09-08 16:30 | Inpatient (IN) | payer MEDICARE, OTHER ==
[2018-09-08] MEDS ORDERED: ALBUTEROL SO4 2.5/IPRATROPIUM 0.5 INH SOL 3 ML VIAL.NEB. NEB ONE (18:11)
[2018-09-08] MEDS: ALBUTEROL SO4 0.083% IH SOL 2.5 MG/3 ML VIAL.NEB. NEB SCH ×2 (18:18→18:49)
[2018-09-08 18:28] LABS: BASO % 0.8 % (0-2.0); EOS % 1.2 % (0-4.5); HEMATOCRIT 35.4 % (35.4-49); HEMOGLOBIN 11.9 GM/dL (11.7-16.9); LYMPH % 10.5 % (8-40); MCHC 33.5 g/dl (32.0-35.9); MEAN CELL VOLUME 98.6 fl (80-96); MEAN PLT VOLUME 7.9 fl (7.5-11.1); MONO % 5.8 % (3.8-10.2); NEUT % 81.7 % (42.8-82.8); PLATELET COUNT 166 K/MM3 (134-434); RBC 3.59 M/mm3 (4.00-5.60); RDW 16.1 % (11.9-15.9); WHITE BLOOD COUNT 7.5 K/mm3 (4.0-10.0)
[2018-09-08] MEDS ORDERED: SODIUM CHLORIDE 0.9% 500 ML INFUS.BAG IV ONE ×2 (18:37→19:26)
--- NOTE | 2018-09-08 18:46 | PDOC ---
History of Present Illness - General Chief Complaint: Lightheaded Stated Complaint: dizziness, inability to tolerate PO Time Seen by Provider: 09/08/18 17:00 History Source: Patient, Family (Tristanian-speaking adult daughter) Exam Limitations: Other (noncooperative to parts of the exam) - History of Present Illness Initial Comments: 09/08/18 18:34 83M w/ pmh of cachexia(BMI: 13.7), asthma, ILD, COPD, chronic gastritis, BPH presenting with complaint of dizziness associated with getting out of bed and eating, x3d. States that food/pills feel like it is getting stuck in his throat. Has decreased in activity: not getting out of bed for meals, refusing to walk to the bathroom due to dizziness. As per daughter, pt is having increased malaise. At baseline, patient mostly stays in bed but will get out to eat meals and use restroom. Pt endorses chills, chronic cough with white sputum , chronic constipation. Denies F, STEWART, CP, SOB, abd pain, dysuria, urinary freq, bloody BM. Lives at home with . Had a [employer] M[employer] OPERATOR 3x/weekly after recent DC on 08/21/18. Patient refused help from [employer] OPERATOR after one week. Has had h/o of 3-4 falls w/o LOC in the past 3ys. Daughter expressing frustration that the patient is refusing help and worried that her mother won't be able to care for the patient. Past History - Travel Traveled outside of the country in the last 30 days: No Close contact w/someone who was outside of country & ill: No - Past Medical History Allergies/Adverse Reactions: Allergies Allergy/AdvReac Type Severity Reaction Status Date / Time fish derived [Fish derived] Allergy Verified 09/08/18 16:56 Shellfish Allergy Verified 09/08/18 16:56 Home Medications: Ambulatory Orders Tiotropium [place] [Spiriva] 18 mcg IH BID 03/17/13 Albuterol 0.083% Nebulizer [place] [Ventolin 0.083% Nebulizer Soln -] 1 amp NEB Q6H PRN #20 amp 01/25/18 Tamsulosin HCl [Flomax -] 0.4 mg PO DAILY@0830 #30 cap.er.24h 01/25/18 Anemia: Yes Asthma: Yes Cancer: No Cardiac Disorders: No Hx Myocardial Infarction: No CVA: No COPD: Yes Diabetes: No GI Disorders: Yes (gastritis) Disorders: Yes (BPH) HTN: No Hypercholesterolemia: No Seizures: No - Immunization History Immunization Up to Date: No - Suicide/Smoking/Psychosocial Hx Smoking Status: No Smoking History: Never smoked Have you smoked in the past 12 months: No Number of Cigarettes Smoked Daily: 0 Information on smoking cessation initiated: No Hx Alcohol Use: No Drug/Substance Use Hx: No Substance Use Type: None Review of Systems - Review of Systems Able to Perform ROS?: Yes Is the patient limited Tristanian proficient: Yes Constitutional: Yes: Chills, Malaise HEENTM: Yes: Difficulty Swallowing (sticking sensation in throat) Respiratory: Yes: Cough (occasional white sputum). No: SOB at Rest, Wheezing ABD/GI: Yes: Constipated, Difficulty Swallowing. No: Diarrhea, Nausea, Vomiting : No: Dysuria, Hematuria Musculoskeletal: Yes: Back Pain (upper back pain) Neurological: Yes: Dizziness *Physical Exam - Vital Signs Last Vital Signs Temp Pulse Resp BP Pulse Ox 97.7 F 96 H 20 82/58 L 91 L 09/08/18 16:52 09/08/18 16:52 09/08/18 16:52 09/08/18 16:52 09/08/18 16:52 - Physical Exam General Appearance: No: Nourished HEENT: negative: Pale Conjunctivae, Photophobia, Hearing Grossly Normal Neck: negative: Trachea midline Respiratory/Chest: positive: Rapid RR, Rhonchi (b/l ronchi), Wheezing. negative : Chest Tender, Labored Respiration, Paradoxal Breathing Cardiovascular: positive: Regular Rhythm, Regular Rate. negative: Murmur Vascular Pulses: Dorsalis-Pedis (R): 2+, Doralis-Pedis (L): 2+ Gastrointestinal/Abdominal: positive: Soft. negative: Tenderness Musculoskeletal: negative: Muscle Spasm Extremity: negative: Normal Range of Motion, Coldness, Pedal Edema, Calf Tenderness, Erythema Integumentary: positive: Dry, Warm Neurologic: positive: Fully Oriented, Normal Mood/Affect, Motor Strength 5/5, Other (patient refusing to lay suprine or stand up to test orthostatics) ED Treatment Course - LABORATORY CBC & Chemistry Diagram: 09/08/18 18:21 09/08/18 18:21 - RADIOLOGY Radiology Studies Ordered: Category Date Time Status CHEST X-RAY PORTABLE* [RAD] Stat Radiology 09/08/18 18:04 Ordered Medical Decision Making - Medical Decision Making 09/08/18 18:58 - labs: CBC, CMP, cardiac enzymes -- neg - administer: albuterol x3 - fu CXR -- grossly unchanged when compared to previous admission - EKG -- left atrial englargement, left axis deviation 09/08/18 19:42 - [facility] paged for admission *DC/Admit/Observation/Transfer Diagnosis at time of Disposition: Cachexia, Dizziness Failure to thrive Qualifiers: Failure to thrive age range: in adult Qualified Code(s): R62.7 - Adult failure to thrive - Discharge Dispostion Condition at time of disposition: Guarded Decision to Admit order: Yes - Referrals Referrals: Alec Chavira MD [Primary Care Provider] - - Patient Instructions - Post Discharge Activity
[2018-09-08 18:49] LABS: INR 1.06 (0.83-1.09); PROTHROMBIN TIME (PATIENT) 12.5 SEC (9.7-13.0)
--- NOTE | 2018-09-08 18:49 | PDOC ---
Documentation entered by Layo Cannon SCRIBE, acting as scribe for Johnathan Bustillo MD. Johnathan Bustillo MD: This documentation has been prepared by the [employer] Xhesika, SCRIBE, under my direction and personally reviewed by me in its entirety. I confirm that the documentation accurately reflects all work, treatment, procedures, and medical decision making performed by me. Attending Attestation - Resident Resident Name: Steve Jacobson - ED Attending Attestation I have performed the following: I have examined & evaluated the patient, The case was reviewed & discussed with the resident, I agree w/resident's findings & plan, Exceptions are as noted - HPI HPI: 09/08/18 18:41 Patient is an 83 year old male with a significant past medical history of asthma , COPD, interstitial lung disease, chronic gastritis, H pylori, cachexia, and severe malnutrition who presents to the ED with 2 weeks of worsening SOB, decreased PO intake of solids and liquids, dizziness, and failure to thrive. As per family, pt has had significant weight loss. Had a recent hospitalization for FTT but has only deteriorated since his discharge. Pt has complained of persistent room spinning dizziness. Also reports SOB at rest. The patient denies chest pain, headache and dizziness. Denies fever, chills, cough, nausea, vomiting, diarrhea and constipation. Denies dysuria, frequency, urgency and hematuria. Allergies: Fish Derived, Shellfish PCP: Dr. Afia Ceballos - Physicial Exam PE: 09/08/18 18:42 GENERAL: Awake, alert, and fully oriented, in no acute distress. HEAD: No signs of trauma EYES: PERRLA, EOMI, sclera anicteric, conjunctiva clear ENT: Auricles normal inspection, hearing grossly normal, nares patent, oropharynx clear without exudates. Moist mucosa NECK: Nontender, no stepoffs, Normal ROM, supple, no lymphadenopathy, JVD, or masses LUNGS: Breath sounds equal, clear to auscultation bilaterally. No wheezes, and no crackles HEART: Regular rate and rhythm, normal S1 and S2, no murmurs, rubs or gallops ABDOMEN: Soft, nontender, normoactive bowel sounds. No guarding, no rebound. No masses EXTREMITIES: Normal range of motion, no edema. No clubbing or cyanosis. No cords, erythema, or tenderness NEUROLOGICAL: Cranial nerves II through XII intact. 5/5 strength and sensation in all extremities, Normal speech, normal gait, normal cerebellar function SKIN: Warm, Dry, normal turgor, no rashes or lesions noted. - Medical Decision Making 09/08/18 18:51 83 M presenting with dizziness, SOB, and poor PO intake. Vitals notable for hypotension and tachycardia, likely 2/2 PO intolerance. Pt is cachectic appearing on exam. Pt also hypoxic, likely chronic. - Labs - CXR, UA - Admit
[2018-09-08 18:52] LABS: ALBUMIN 2.9 g/dl (3.4-5.0); BILIRUBIN,TOTAL 0.5 mg/dL (0.2-1); BLOOD UREA NITROGEN 20.9 mg/dL (7-18); CALCIUM 8.6 mg/dL (8.5-10.1); CREATININE 0.8 mg/dL (0.55-1.3); POTASSIUM 4.9 mmol/L (3.5-5.1); TOT PROT 6.3 g/dl (6.4-8.2)
--- NOTE | 2018-09-08 19:34 | PDOC ---
*Physical Exam - Vital Signs Last Vital Signs Temp Pulse Resp BP Pulse Ox 97.7 F 96 H 20 82/58 L 91 L 09/08/18 16:52 09/08/18 16:52 09/08/18 16:52 09/08/18 16:52 09/08/18 16:52 ED Treatment Course - LABORATORY CBC & Chemistry Diagram: 09/09/18 08:15 09/09/18 08:15 - ADDITIONAL ORDERS Additional order review: Laboratory Results 09/08/18 09/08/18 09/08/18 18:21 18:21 18:21 PT with INR 12.50 INR 1.06 PTT (Actin FS) 36.6 H Sodium 142 Potassium 4.9 Chloride 104 Carbon Dioxide 36 H Anion Gap 2 L BUN 20.9 H Creatinine 0.8 Est GFR (CKD-EPI)AfAm 95.07 Est GFR (CKD-EPI)NonAf 82.03 Random Glucose 103 Calcium 8.6 Total Bilirubin 0.5 AST 9 L ALT 12 L Alkaline Phosphatase 73 Troponin I Total Protein 6.3 L Albumin 2.9 L 09/08/18 18:21 PT with INR INR PTT (Actin FS) Sodium Potassium Chloride Carbon Dioxide Anion Gap BUN Creatinine Est GFR (CKD-EPI)AfAm Est GFR (CKD-EPI)NonAf Random Glucose Calcium Total Bilirubin AST ALT Alkaline Phosphatase Troponin I < 0.02 Total Protein Albumin 09/08/18 18:21 RBC 3.59 L MCV 98.6 H MCHC 33.5 RDW 16.1 H MPV 7.9 D Neutrophils % 81.7 Lymphocytes % 10.5 D Monocytes % 5.8 Eosinophils % 1.2 D Basophils % 0.8 - Medications Given in the ED: ED Medications Discontinued Medications Generic Name Dose Route Start Last Admin Trade Name Freq PRN Reason Stop Dose Admin Albuterol Sulfate 1 amp 09/08/18 18:15 09/08/18 18:49 Ventolin 0.083% Nebulizer Soln - NEB 09/08/18 18:46 1 amp Q15M CORAL Administration Sodium Chloride 1,000 ml 09/08/18 18:37 09/08/18 18:49 Normal Saline - IV 09/08/18 18:38 1,000 ml ONCE ONE Administration Medical Decision Making - Medical Decision Making 09/08/18 19:33 Picked up pt on signout and he is dehydrated. CXR portable is crummy lung edwards; exactly the same as old. Pt afebrile. He is SOB and cannot eat at home. Prerenal labs; he will get a 2nd L of saline. 09/10/18 00:46 Pt admitted *DC/Admit/Observation/Transfer Diagnosis at time of Disposition: Cachexia, Failure to thrive, Dizziness - Discharge Dispostion Condition at time of disposition: Guarded - Referrals - Patient Instructions - Post Discharge Activity
--- NOTE | 2018-09-08 20:03 | PDOC ---
*Physical Exam - Vital Signs Last Vital Signs Temp Pulse Resp BP Pulse Ox 97.7 F 96 H 20 82/58 L 91 L 09/08/18 16:52 09/08/18 16:52 09/08/18 16:52 09/08/18 16:52 09/08/18 16:52 ED Treatment Course - LABORATORY CBC & Chemistry Diagram: 09/08/18 18:21 09/08/18 18:21 - ADDITIONAL ORDERS Additional order review: Laboratory Results 09/08/18 09/08/18 09/08/18 18:21 18:21 18:21 PT with INR 12.50 INR 1.06 PTT (Actin FS) 36.6 H Sodium 142 Potassium 4.9 Chloride 104 Carbon Dioxide 36 H Anion Gap 2 L BUN 20.9 H Creatinine 0.8 Est GFR (CKD-EPI)AfAm 95.07 Est GFR (CKD-EPI)NonAf 82.03 Random Glucose 103 Calcium 8.6 Total Bilirubin 0.5 AST 9 L ALT 12 L Alkaline Phosphatase 73 Troponin I Total Protein 6.3 L Albumin 2.9 L 09/08/18 18:21 PT with INR INR PTT (Actin FS) Sodium Potassium Chloride Carbon Dioxide Anion Gap BUN Creatinine Est GFR (CKD-EPI)AfAm Est GFR (CKD-EPI)NonAf Random Glucose Calcium Total Bilirubin AST ALT Alkaline Phosphatase Troponin I < 0.02 Total Protein Albumin 09/08/18 18:21 RBC 3.59 L MCV 98.6 H MCHC 33.5 RDW 16.1 H MPV 7.9 D Neutrophils % 81.7 Lymphocytes % 10.5 D Monocytes % 5.8 Eosinophils % 1.2 D Basophils % 0.8 - Medications Given in the ED: ED Medications Discontinued Medications Generic Name Dose Route Start Last Admin Trade Name Freq PRN Reason Stop Dose Admin Albuterol Sulfate 1 amp 09/08/18 18:15 09/08/18 18:49 Ventolin 0.083% Nebulizer Soln - NEB 09/08/18 18:46 1 amp Q15M CORAL Administration Sodium Chloride 1,000 ml 09/08/18 18:37 09/08/18 18:49 Normal Saline - IV 09/08/18 18:38 1,000 ml ONCE ONE Administration Sodium Chloride 1,000 ml 09/08/18 19:26 09/08/18 19:44 Normal Saline - IV 09/08/18 19:27 1,000 ml ONCE ONE Administration Medical Decision Making - Medical Decision Making 09/08/18 19:59 Patient received on signout from Dr Jacobson Briefly, patient is 83M w/ pmh of cachexia(BMI: 13.7), asthma, ILD, COPD, chronic gastritis, BPH presenting with complaint of dizziness associated with dysphagia and decreased PO, being admitted for FTT Patient has received 1bolus since arrival and is receiving 2nd Paged admitting team, awaiting response 09/08/18 20:[address] Chavira Patient urinated and UA and UCx sent 09/08/18 23:15 repeat BP 112/71 Patient tolerated dinner bag without any dysphagia discussed with family regarding medical terminologist nutrition goals and needs: Peg vs penitentiary vs HHRN; family would like to continue conversation with admitting team *DC/Admit/Observation/Transfer Diagnosis at time of Disposition: Cachexia, Dizziness Failure to thrive Qualifiers: Failure to thrive age range: in adult Qualified Code(s): R62.7 - Adult failure to thrive - Discharge Dispostion Condition at time of disposition: Guarded - Referrals - Patient Instructions - Post Discharge Activity
[2018-09-08 20:52] LABS: EPI CELLS 0.8 /HPF (0-5/HPF); HYALINE CASTS 6 /lpf (0-8); URINE APPEARANCE CLEAR; URINE BACTERIA 0.3 /hpf (NEGATIVE); URINE BILIRUBIN NEGATIVE (NEGATIVE); URINE COLOR YELLOW; URINE GLUCOSE (UA) NEGATIVE (NEGATIVE); URINE KETONE TRACE (NEGATIVE); URINE LEUK ESTERASE NEGATIVE (NEGATIVE); URINE NITRITE NEGATIVE (NEGATIVE); URINE PROTEIN TRACE (NEGATIVE); URINE RBC 4 /hpf (0-4); URINE UROBILINOGEN 0.2 mg/dL (0.2-1.0); URINE WBC 1 /hpf (0-5)
--- NOTE | 2018-09-08 22:30 | HP ---
Admitting History and Physical - Primary Care Physician PCP: Afia Piper - Admission Chief Complaint: Dizziness, Dysphagia, Chills, Productive Cough History of Present Illness: This is a 83 y/o man with a PMHx of Asthma, ILD, COPD, 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 Who presents to the ED with family who reports dizziness, dysphagia x 3 days, chills, chronic cough. History Source: Patient, Family Member Limitations to Obtaining History: Language Barrier (Tai[place]ese) - Past Medical History Pulmonary: Yes: Asthma, COPD, Other (ILD) Gastrointestinal: Yes: Other (Chronic Gastritis) Renal/: Yes: BPH Heme/Onc: Yes: Anemia - Past Surgical History Past Surgical History: Yes: None - Smoking History Smoking history: Never smoked Have you smoked in the past 12 months: No Aproximately how many cigarettes per day: 0 - Alcohol/Substance Use Hx Alcohol Use: No History of Substance Use: reports: None - Social History Usual Living Arrangement: Yes: With Child ADL: Family Assistance Occupation: Worked as [employer] in [place] History of Recent Travel: No Home Medications - Allergies Allergies/Adverse Reactions: Allergies Allergy/AdvReac Type Severity Reaction Status Date / Time fish derived [Fish derived] Allergy Verified 09/08/18 16:56 Shellfish Allergy Verified 09/08/18 16:56 - Home Medications Home Medications: Ambulatory Orders Tiotropium [place] [Spiriva] 18 mcg IH BID 03/17/13 Albuterol 0.083% Nebulizer Pilar [Ventolin 0.083% Nebulizer Soln -] 1 amp NEB Q6H PRN #20 amp 01/25/18 Tamsulosin HCl [Flomax -] 0.4 mg PO DAILY@0830 #30 cap.er.24h 01/25/18 Family Disease History - Family Disease History Family Disease History: Other: Father (: 97 of "Old Age"), Mother (: Age 40: "fever"), Brother (1: from alcoholic complications), Son (2, healthy), Daughter (5, healthy) Review of Systems - Review of Systems Constitutional: reports: Chills, Lethargy, Loss of Appetite, Malaise, Unintentional Wgt. Loss, Weakness Eyes: reports: No Symptoms HENT: reports: Difficult Swallowing Neck: reports: No Symptoms Cardiovascular: reports: No Symptoms Respiratory: reports: Cough Gastrointestinal: reports: Dysphagia Genitourinary: reports: No Symptoms Breasts: reports: No Symptoms Reported Musculoskeletal: reports: No Symptoms Integumentary: reports: No Symptoms Neurological: reports: Dizziness Endocrine: reports: No Symptoms Hematology/Lymphatic: reports: No Symptoms Psychiatric: reports: No Symptoms Physical Examination Vital Signs: Vital Signs Temperature 97.7 F 09/08/18 16:52 Pulse Rate 95 H 09/08/18 20:00 Respiratory Rate 26 H 09/08/18 20:00 Blood Pressure 93/56 L 09/08/18 20:00 O2 Sat by Pulse Oximetry (%) 96 09/08/18 20:51 Constitutional: Yes: Cachectic, Other (confused) Eyes: Yes: Conjunctiva Clear, PERRL HENT: Yes: WNL, Atraumatic, Normocephalic Neck: Yes: WNL, Supple, Trachea Midline Cardiovascular: Yes: WNL, Regular Rate and Rhythm, S1, S2 Respiratory: Yes: WNL, Regular, CTA Bilaterally Gastrointestinal: Yes: Soft, Hypoactive Bowel Sounds Renal/: Yes: WNL Breast(s): Yes: WNL Musculoskeletal: Yes: WNL Extremities: Yes: WNL Edema: No Peripheral Pulses WNL: Yes Neurological: Yes: Confusion, Cran Nerves II-XII Intact ...Motor Strength: WNL Psychiatric: Yes: Alert Labs: CBC, BMP 09/08/18 18:21 09/08/18 18:21 Laboratory Results - last 24 hr 09/08/18 09/08/18 09/08/18 18:21 18:21 18:21 WBC 7.5 RBC 3.59 L Hgb 11.9 Hct 35.4 MCV 98.6 H MCH 33.0 MCHC 33.5 RDW 16.1 H Plt Count 166 D MPV 7.9 D Absolute Neuts (auto) 6.1 Neutrophils % 81.7 Lymphocytes % 10.5 D Monocytes % 5.8 Eosinophils % 1.2 D Basophils % 0.8 Nucleated RBC % 0 PT with INR INR PTT (Actin FS) 36.6 H Sodium Potassium Chloride Carbon Dioxide Anion Gap BUN Creatinine Est GFR (CKD-EPI)AfAm Est GFR (CKD-EPI)NonAf Random Glucose Calcium Total Bilirubin AST ALT Alkaline Phosphatase Troponin I < 0.02 Total Protein Albumin Urine Color Urine Appearance Urine pH Ur Specific [place] Urine Protein Urine Glucose (UA) Urine Ketones Urine Blood Urine Nitrite Urine Bilirubin Urine Urobilinogen Ur Leukocyte Esterase Urine WBC (Auto) Urine RBC (Auto) Urine Casts (Auto) U Epithel Cells (Auto) Urine Bacteria (Auto) 09/08/18 09/08/18 09/08/18 18:21 18:21 20:25 WBC RBC Hgb Hct MCV MCH MCHC RDW Plt Count MPV Absolute Neuts (auto) Neutrophils % Lymphocytes % Monocytes % Eosinophils % Basophils % Nucleated RBC % PT with INR 12.50 INR 1.06 PTT (Actin FS) Sodium 142 Potassium 4.9 Chloride 104 Carbon Dioxide 36 H Anion Gap 2 L BUN 20.9 H Creatinine 0.8 Est GFR (CKD-EPI)AfAm 95.07 Est GFR (CKD-EPI)NonAf 82.03 Random Glucose 103 Calcium 8.6 Total Bilirubin 0.5 AST 9 L ALT 12 L Alkaline Phosphatase 73 Troponin I Total Protein 6.3 L Albumin 2.9 L Urine Color Yellow Urine Appearance Clear Urine pH 5.0 Ur Specific [place] 1.026 Urine Protein Trace Urine Glucose (UA) Negative Urine Ketones Trace H Urine Blood 1+ H Urine Nitrite Negative Urine Bilirubin Negative Urine Urobilinogen 0.2 Ur Leukocyte Esterase Negative Urine WBC (Auto) 1 Urine RBC (Auto) 4 Urine Casts (Auto) 6 U Epithel Cells (Auto) 0.8 Urine Bacteria (Auto) 0.3 Intake & Output 09/05/18 09/06/18 09/07/18 09/08/18 23:59 23:59 23:59 23:59 Weight 38.555 kg Problem List - Problems (1) Weakness generalized Code(s): R53.1 - WEAKNESS (2) Dehydration Code(s): E86.0 - DEHYDRATION (3) Dizziness Code(s): R42 - DIZZINESS AND GIDDINESS (4) Failure to thrive Code(s): ETA8987 - Qualifiers: Failure to thrive age range: in adult Qualified Code(s): R62.7 - Adult failure to thrive (5) Cachexia Code(s): R64 - CACHEXIA (6) Anemia Code(s): D64.9 - ANEMIA, UNSPECIFIED Qualifiers: Anemia type: unspecified type Qualified Code(s): D64.9 - Anemia, unspecified (7) Asthma Code(s): J45.909 - UNSPECIFIED ASTHMA, UNCOMPLICATED (8) COPD (chronic obstructive pulmonary disease) Code(s): J44.9 - CHRONIC OBSTRUCTIVE PULMONARY DISEASE, UNSPECIFIED Qualifiers: COPD type: unspecified COPD Qualified Code(s): J44.9 - Chronic obstructive pulmonary disease, unspecified (9) Interstitial lung disease Code(s): J84.9 - INTERSTITIAL PULMONARY DISEASE, UNSPECIFIED (10) BPH (benign prostatic hyperplasia) Code(s): N40.0 - BENIGN PROSTATIC HYPERPLASIA WITHOUT LOWER URINRY TRACT SYMP Assessment/Plan This is a 83 y/o man with a PMHx of Cachexia (BMI 13.7), Asthma, COPD, ILD, Chronic Gastritis, BPH. Admitted for Generalized Weakness, Dehydration, Failure to Thrive, Cachexia for further evaluation of their emergent condition. Plan: Admit Likely secondary to Dehydration due to Dysphagia Albumin 2.9 Appreciate Swallow Eval NS boluses given in ED secondary to hypotension Continue gentle IVF Repeat CBC, BMP Aspiration Precautions Fall Precautions Repeat CBC, BMP in am Duonebs O2 Will hold home meds secondary to Dysphagia Consider PEG placement FEN- replete lytes, NPO DVT ppx- OOB, SCDs, Heparin SQ Dispo: Requires Inpatient Care Visit type - Emergency Visit Emergency Visit: Yes ED Registration Date: 09/08/18 Care time: The patient presented to the Emergency Department on the above date and was hospitalized for further evaluation of their emergent condition. - New Patient This patient is new to me today: Yes Date on this admission: 09/08/18 - Critical Care Critical Care patient: No
[2018-09-09] MEDS: DEXTROSE 5%-NORMAL SALINE 1,000 ML IV SCH ×2 (04:50→18:12)
[2018-09-09] MEDS ORDERED: ALBUTEROL SO4 0.083% IH SOL 2.5 MG/3 ML VIAL.NEB. NEB PRN (07:10)
[2018-09-09 08:45] LABS: BASO % 0.6 % (0-2.0); EOS % 4.2 % (0-4.5); HEMATOCRIT 32.5 % (35.4-49); LYMPH % 12.4 % (8-40); MCH 33.3 pg (25.7-33.7); MCHC 33.8 g/dl (32.0-35.9); MEAN CELL VOLUME 98.7 fl (80-96); MEAN PLT VOLUME 8.2 fl (7.5-11.1); MONO % 7.3 % (3.8-10.2); NEUT % 75.5 % (42.8-82.8); PLATELET COUNT 169 K/MM3 (134-434); RBC 3.29 M/mm3 (4.00-5.60); WHITE BLOOD COUNT 5.5 K/mm3 (4.0-10.0)
[2018-09-09] MEDS: TAMSULOSIN HCL 0.4 MG CAP PO SCH ×2 (09:04→16:40)
[2018-09-09 09:05] LABS: BLOOD UREA NITROGEN 14.6 mg/dL (7-18); CALCIUM 7.8 mg/dL (8.5-10.1); CREATININE 0.6 mg/dL (0.55-1.3); POTASSIUM 3.7 mmol/L (3.5-5.1)
[2018-09-09] MEDS ORDERED: TIOTROPIUM BROMIDE 2.5 MCG (SPIRIVA) RESPIMAT INHALER IH SCH (10:00)
--- NOTE | 2018-09-09 12:05 | PN ---
Progress Note (short form) - Note Progress Note: comfortable no new issues son at bedside denies pain Vital Signs Temp 98.1 F 09/09/18 04:19 Pulse 90 09/09/18 04:19 Resp 21 H 09/09/18 09:10 BP 119/98 09/09/18 04:19 Pulse Ox 97 09/09/18 09:10 Intake & Output 09/08/18 09/09/18 09/09/18 23:59 11:59 23:59 Intake Total 64 Balance 64 Weight 85 lb 90 lb 11.2 oz Intake: IV 64 D5-Ns - 1,000 ml @ 42 mls 64 /hr IV ASDIR [facility] Rx#: [id number] Other: Voiding Method Urinal Urinal # Unmeasured Voids Void 1 Bowel Movement No Height 5 ft 6 in 5 ft 6 in Body Mass Index (BMI) 13.7 14.6 Weight Measurement Method Built [facility] Weight Measurement Method Est/Stated by Patient Active Medications Albuterol Sulfate (Ventolin 0.083% Nebulizer Soln -) 1 amp NEB Q6H PRN PRN Reason: SHORT OF BREATH/WHEEZING Dextrose/Sodium Chloride (D5-Ns -) 1,000 mls @ 42 mls/hr IV ASDIR [facility] Last Admin: 09/09/18 04:50 Dose: 42 mls/hr Tamsulosin HCl (Flomax -) 0.4 mg PO DAILY@0830 [facility] Last Admin: 09/09/18 09:04 Dose: Not Given Tiotropium [place] (Spiriva Respimat) 1 puff IH BID [facility] CBC, BMP 09/09/18 08:15 09/09/18 08:15 cxr- noted Physical Exam Constitutional: Yes: Calm/ comfortable. Eyes: Yes: Conjunctiva Clear, EOM Intact HENT: Yes: wnl Neck: Yes: Supple, Trachea Midline. Cardiovascular: Yes: Regular Rate and Rhythm Respiratory: Yes: Diminished (decreased breath sounds at the bases) Gastrointestinal: Yes: Normal Bowel Sounds, Soft. No: Tenderness Edema: No Neurological: Yes: Alert, Oriented Assessment/Plan stable encourage eating. swallow eval will ask gi to f/u will follow can transfer to floor
[2018-09-09] MEDS ORDERED: PT OWN MED DRAWER 7, Y5N ONE (13:26)
[2018-09-09] MEDS: TIOTROPIUM BROMIDE 2.5 MCG (SPIRIVA) RESPIMAT INHALER IH SCH (21:51)
[2018-09-10] MEDS: TAMSULOSIN HCL 0.4 MG CAP PO SCH (08:59)
[2018-09-10] MEDS: TIOTROPIUM BROMIDE 2.5 MCG (SPIRIVA) RESPIMAT INHALER IH SCH ×2 (09:01→21:14)
--- NOTE | 2018-09-10 09:13 | EKG ---
Test Reason : Blood Pressure : / mmHG Vent. Rate : 096 BPM Atrial Rate : 096 BPM P-R Int : 138 ms QRS Dur : 078 ms QT Int : 324 ms P-R-T Axes : 044 -32 048 degrees QTc Int : 409 ms NORMAL SINUS RHYTHM POSSIBLE LEFT ATRIAL ENLARGEMENT LEFT AXIS DEVIATION SEPTAL INFARCT , AGE UNDETERMINED ABNORMAL ECG WHEN COMPARED WITH ECG OF 15-AUG-2018 13:01, PREMATURE SUPRAVENTRICULAR COMPLEXES ARE NO LONGER PRESENT SEPTAL INFARCT IS NOW PRESENT Confirmed by ALICJA GTZ MD ([id number]) on 09/10/2018 9:13:20 AM Referred By: Confirmed By:ALICJA GTZ MD
--- NOTE | 2018-09-10 09:54 | CON.GI ---
Consult Consult Specialty:: GI Referred by:: Dr. Chavira Reason for Consultation:: Weight loss - History of Present Illness Chief Complaint: poor PO intake History of Present Illness: 83 M admitted from home through [facility] for evaluation of increasing SOB, decreased PO intake. Family had described weight loss as well. He was evaluated 01/24 for evaluation of abdominal pain while trying to have a bowel movement as well as weakness, malaise and no BM for several days. Patient's daughter Katerina and the patient's were present at bedside at that time. Despite using a [place] [employer] clock mechanic, there was still difficulty with interpretation, therefore, his daughter aided in interpretation as well at that time. When I asked his family regarding Mr. Nolasco's history of anemia in January, they stated that they have known about this for multiple years. They believed that he was also seen by a swimming pool cleaner as well and believes he was told to "drink ensure". Then there had been no overt rectal bleeding, melena, dysphagia, odynophagia, unintentional weight loss (patient's family that he has been thin as far as they could remember), change in appetite, early satiety. There is no family history of colorectal cancer or other GI malignancy. CT scan of the abdomen and pelvis with PO contrast 01/20/18 was unremarkable except for enlarged prostate. He was noted to be guaiac + at that time and EGD and colonoscopy were performed by Dr. Maegan Jameson 01/23/18: EGD revealed mild gastritis (h. pylori +, unknown if treated) and an angiodysplasia. Colonoscopy was described as normal aside from small internal hemorrhoids. Of note, in review of [employer], he was noted to be 85-90 pounds in 01/24. CT scan C/A/P 08/17/18 (non contrast) revealed pneumomediastinum. He was evaluated by CTS who felt that this was secondary to microperforation secondary to coughing fit. - History Source History Provided By: Medical Record Limitations to Obtaining History: Poor Historian - Past Medical History Pulmonary: Yes: Asthma, COPD, Other (ILD) Gastrointestinal: Yes: Other (Chronic Gastritis) Renal/: Yes: BPH - Past Surgical History Past Surgical History: Yes: None - Alcohol/Substance Use Hx Alcohol Use: No History of Substance Use: reports: None - Smoking History Smoking history: Never smoked Have you smoked in the past 12 months: No Aproximately how many cigarettes per day: 0 - Social History Usual Living Arrangement: With Spouse ADL: Family Assistance Occupation: Worked as [employer] in [place] Place of : Other ([place]) History of Recent Travel: No Home Medications - Allergies Allergies/Adverse Reactions: Allergies Allergy/AdvReac Type Severity Reaction Status Date / Time fish derived [Fish derived] Allergy Verified 09/08/18 16:56 Shellfish Allergy Verified 09/08/18 16:56 - Home Medications Home Medications: Ambulatory Orders Tiotropium [place] [Spiriva] 18 mcg IH BID 03/17/13 Albuterol 0.083% Nebulizer Pilar [Ventolin 0.083% Nebulizer Soln -] 1 amp NEB Q6H PRN #20 amp 01/25/18 Tamsulosin HCl [Flomax -] 0.4 mg PO DAILY@0830 #30 cap.er.24h 01/25/18 Family Disease History - Family Disease History Family Disease History: Other: Father (: 97 of "Old Age"), Mother (: Age 40: "fever"), Brother (1: from alcoholic complications), Son (2, healthy), Daughter (5, healthy) Other Family History: No family history of colorectal cancer or other GI malignancy Review of Systems - Review of Systems Constitutional: reports: Loss of Appetite Respiratory: reports: Cough, SOB Gastrointestinal: reports: Constipation (chronic). denies: Abdominal Pain, Diarrhea, Melena, Nausea, Rectal Bleeding, Vomiting Physical Exam-GI Vital Signs: Vital Signs Temperature 97.8 F 09/10/18 06:00 Pulse Rate 81 09/10/18 06:00 Respiratory Rate 20 09/10/18 06:00 Blood Pressure 114/58 L 09/10/18 06:00 O2 Sat by Pulse Oximetry (%) 94 L 09/09/18 21:00 Constitutional: Yes: Calm Eyes: No: Sclera Icterus Cardiovascular: Yes: Regular Rate and Rhythm Respiratory: Yes: Diminished (at bases bilaterally with poor insp effort) Gastrointestinal Inspection: No: Distention, Scars ...Auscultate: Yes: Normoactive Bowel Sounds ...Palpate: Yes: Soft. No: Hepatomegaly, Splenomegaly, Tenderness ...Rectal Exam: Yes: Other (No external lesions, no masses light brandon guaiac negative stool. 2+ prostate) Edema: No (No LE edema) Neurological: Yes: Alert Labs: CBC, BMP 09/09/18 08:15 09/09/18 08:15 INR, PTT INR 1.06 (0.83-1.09) 09/08/18 18:21 Hepatic Panel Total Bilirubin 0.5 mg/dL (0.2-1) 09/08/18 18:21 AST 9 U/L (15-37) L 09/08/18 18:21 ALT 12 U/L (13-61) L 09/08/18 18:21 Alkaline Phosphatase 73 U/L (45-117) 09/08/18 18:21 Albumin 2.9 g/dl (3.4-5.0) L 09/08/18 18:21 Problem List - Problems (1) Cachexia Assessment/Plan: Patient appears to be around the same weight from 01/24 Had recent EGD and colonoscopy that were essentially unrevealing. (unclear if h. pylori treated) Consider CT of the abdomen and pelvis with PO as well as IV contrast if feasible (given shellfish allergy) Speech and swallow eval Code(s): R64 - CACHEXIA
--- NOTE | 2018-09-10 14:06 | PN ---
Progress Note (short form) - Note Progress Note: awake/ comfortable eating well gi consult noted-- recent ct scan - reviewed- will not repeat for now as pt feels great eating very well. Vital Signs Temp 97.4 F L 09/10/18 10:02 Pulse 80 09/10/18 10:02 Resp 20 09/10/18 10:02 BP 108/64 09/10/18 10:02 Pulse Ox 94 L 09/09/18 21:00 Intake & Output 09/09/18 09/10/18 09/10/18 23:59 11:59 23:59 Intake Total 550 462 Output Total 350 Balance 200 462 Weight 93 lb 4.8 oz 86 lb 3 oz Intake: IV 150 462 D5-Ns - 1,000 ml @ 42 mls 150 462 /hr IV ASDIR [facility] Rx#: [id number] Oral 200 Oral Supplement 200 Output: Urine 350 Void 350 Other: Voiding Method Urinal Urinal # Unmeasured Voids Void 2 3 Bowel Movement No No Weight Measurement Method Built [facility] Bedscale [facility] Active Medications Albuterol Sulfate (Ventolin 0.083% Nebulizer Soln -) 1 amp NEB Q6H PRN PRN Reason: SHORT OF BREATH/WHEEZING Dextrose/Sodium Chloride (D5-Ns -) 1,000 mls @ 42 mls/hr IV ASDIR [facility] Last Admin: 09/09/18 18:12 Dose: 42 mls/hr Tamsulosin HCl (Flomax -) 0.4 mg PO DAILY@0830 [facility] Last Admin: 09/10/18 08:59 Dose: 0.4 mg Tiotropium [place] (Spiriva Respimat) 2 puff IH BID [facility] Last Admin: 09/10/18 09:01 Dose: 2 puff CBC, BMP 09/09/18 08:15 09/09/18 08:15 Microbiology 09/08/18 20:25 Urine Culture - Final Urine - Urine Clean Catch NO GROWTH OBTAINED Physical Exam Constitutional: Yes: Calm/ comfortable. Eyes: Yes: Conjunctiva Clear, EOM Intact HENT: Yes: wnl Neck: Yes: Supple, Trachea Midline. Cardiovascular: Yes: Regular Rate and Rhythm Respiratory: Yes: Diminished (decreased breath sounds at the bases) Gastrointestinal: Yes: Normal Bowel Sounds, Soft. No: Tenderness Edema: No Neurological: Yes: Alert, Oriented Assessment/Plan stable eating well continue present care oob - chair Anticipate d/c tomorrow-- social worker to follow
[2018-09-11] MEDS: TAMSULOSIN HCL 0.4 MG CAP PO SCH (08:33)
--- NOTE | 2018-09-11 09:34 | DS ---
Physical Examination Vital Signs: Vital Signs Temperature 97.5 F L 09/11/18 02:35 Pulse Rate 88 09/11/18 02:35 Respiratory Rate 20 09/11/18 02:35 Blood Pressure 102/69 09/11/18 02:35 O2 Sat by Pulse Oximetry (%) 95 09/10/18 21:00 Findings/Remarks: feels well Eating well No issues Constitutional: Yes: No Distress, Calm Eyes: Yes: Conjunctiva Clear Neck: Yes: Supple Cardiovascular: Yes: Regular Rate and Rhythm Respiratory: Yes: CTA Bilaterally Gastrointestinal: Yes: Soft Edema: No Neurological: Yes: Alert Labs: CBC, BMP 09/09/18 08:15 09/09/18 08:15 Discharge Summary Reason For Visit: FAILURE TO THRIVE Current Active Problems Cachexia (Acute) Dizziness (Acute) Failure to thrive (Acute) Hospital Course: This is a 83 y/o man with a PMHx of Asthma, ILD, COPD, 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 Who presents to the ED with family who reports dizziness, dysphagia x 3 days, chills, chronic cough. patient admitted Overall remained stable Eating very well now Lives with his -----may not be doing well--at home with Family insisting to take Home Otherwise okay GI consult was also taken Stable for discharge Follow-up in office--- 1 week We'll monitor Condition: Improved - Instructions Disposition: HOME - Home Medications Comprehensive Discharge Medication List: Ambulatory Orders Albuterol 0.083% Nebulizer Pilar [Ventolin 0.083% Nebulizer Soln -] 1 amp NEB Q6H PRN #20 amp 01/25/18 Tamsulosin HCl [Flomax -] 0.4 mg PO DAILY@0830 #30 cap.er.24h 01/25/18 Tiotropium [place] [Spiriva Respimat] 2 puff IH BID inhaler 09/11/18
[2018-09-11] MEDS: TIOTROPIUM BROMIDE 2.5 MCG (SPIRIVA) RESPIMAT INHALER IH SCH ×2 (11:08→21:02)
--- NOTE | 2018-09-11 12:55 | CONSULT ---
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 Who presents to the ED with family who reports dizziness, dysphagia x 3 days, chills, chronic cough. Selected Entries 09/09/18 09/09/18 09/09/18 01:44 04:19 13:18 Breakfast Diet Tolerated Lunch 75% Supper Temperature 97.9 F 98.1 F 09/09/18 09/09/18 09/09/18 14:26 19:13 20:13 Breakfast Diet Tolerated Fair Lunch Supper 75% Temperature 98.8 F 98.2 F 09/09/18 09/10/18 09/10/18 20:51 06:00 10:00 Breakfast Diet Tolerated Fair Lunch Supper Temperature 99 F 97.8 F 09/10/18 09/10/18 09/10/18 10:02 18:21 20:47 Breakfast Diet Tolerated Poor Lunch Supper 25% Temperature 97.4 F L 98.4 F 09/11/18 09/11/18 02:35 11:07 Breakfast 25% Diet Tolerated Poor Lunch Supper Temperature 97.5 F L Laboratory Tests 09/09/18 08:15 WBC 5.5 On reg diet/thin liquids. Poor PO intake per staff. Accepting banana cake and thin liquid without difficulty. Missing dentition. Limitations to Obtaining History: Clinical Condition (confused. verbal but rambling. SHISHMAREF IRA?), Language Barrier (used travel professional) - Past Medical History Pulmonary: Yes: Asthma, COPD, Other (ILD) Gastrointestinal: Yes: Other (Chronic Gastritis) Renal/: Yes: BPH Heme/Onc: Yes: Anemia - Past Surgical History Past Surgical History: Yes: None - Smoking History Smoking history: Never smoked Have you smoked in the past 12 months: No Aproximately how many cigarettes per day: 0 - Alcohol/Substance Use Hx Alcohol Use: No History of Substance Use: reports: None - Social History ADL: Family Assistance Occupation: Worked as [employer] in [place] History of Recent Travel: No History - Admission Reason For Visit: FAILURE TO THRIVE - General Mental Status: Awake and Alert, Vague, Intermittently Confused (seemed confused when travel professional asked questions? SHISHMAREF IRA?) Attention: Intact - Hearing Hearing: Impaired (?) Speech Evaluation - Communication Primary Language: NAURUAN Communication: Yes: Simple Responses, Language Barrier - Speech Production Apraxia: No Intelligibility: Yes: WNL - Speech Characteristics Voice Loudness: Mildly Soft/Quiet Articulation: Yes: Precise - Language/Auditory Comprehension Observation: Comprehends Conversational Speech: Yes (in Chinese) - Swallow Evaluation/Bedside Assessment Current Nutritional Intake: Regular, Thin Liquids Oral Secretions: Yes: WFL Dentition: Yes: Missing Teeth Facial Symmetry at Rest: Symmetrical Facial Symmetry on Retraction: Symmetrical Against Resistance Opening: Normal Against Resistance Closing: Normal Pucker Lips: Normal Smile: Normal Lingual Movement: Normal, Symmetric Lingual Speed of Movement: Normal Lingual Movement Strgth Against Opposition: Normal Lingual Movement Characteristics: Normal Laryngeal Movement: Able to Palpate Rate of Intake: WFL Labial Seal: WFL Chewing: Impaired (mising dentition but seems efficient) A-P Transit: WFL Timing of Swallow: WFL Coughing/Throat Clear: No Change in Voice: No Recommendations - Speech Evaluation, Impression/Plan Impression: Accepted cake. 3 oz water (-). Confused? SHISHMAREF IRA? difficulty responding to question where he was? Swallowing seems intact. - Disposition Discharge to: Home with Assist - Dysphagia Impressions/Plan Dysphagia Impressions: Ongoing Evaluation *Silent aspiration: cannot be R/O at bedside Dysphagia Treatment Plan: Safe Rate, Elevate HOB during feed, OOB for meals, OOB for 1 h. after meals Recommendations: MBS w Esophagus (as out pt if discharged) - Recommendations Diet Consistency: Other (Soft, easy to chew, add sweeteners for increased acceptance.Consider appetrite stimulant) Liquids: Thin Liquids Supplement: Ensure, Magic Cup, Ensure Pudding
[2018-09-12 03:57] VITALS: BMI 13.8
[2018-09-12] MEDS: TAMSULOSIN HCL 0.4 MG CAP PO SCH (09:33)
[2018-09-12] MEDS: TIOTROPIUM BROMIDE 2.5 MCG (SPIRIVA) RESPIMAT INHALER IH SCH (09:40)
[2018-09-12 13:20] VITALS: BP 92/49; PULSE 99; TEMP 97.7
--- NOTE | 2018-09-12 16:44 | PN ---
Progress Note (short form) - Note Progress Note: comfortable no new issues Could not go yesterday due to----insurance authorization Eating well Vital Signs Temp 97.7 F 09/12/18 13:18 Pulse 99 H 09/12/18 13:18 Resp 20 09/12/18 13:18 BP 92/49 L 09/12/18 13:18 Pulse Ox 93 L 09/12/18 09:00 Intake & Output 09/11/18 09/12/18 09/12/18 23:59 11:59 23:59 Intake Total 2651 120 Output Total 500 150 Balance 1 -30 Intake: Oral 2651 120 Output: Urine 500 150 Void 500 150 Other: Voiding Method Urinal Urinal # Unmeasured Voids Void 2 Bowel Movement No Yes Active Medications Albuterol Sulfate (Ventolin 0.083% Nebulizer Soln -) 1 amp NEB Q6H PRN PRN Reason: SHORT OF BREATH/WHEEZING Tamsulosin HCl (Flomax -) 0.4 mg PO DAILY@0830 [facility] Last Admin: 09/12/18 09:33 Dose: 0.[address] (Spiriva Respimat) 2 puff IH BID [facility] Last Admin: 09/12/18 09:40 Dose: 2 puff CBC, BMP 09/09/18 08:15 09/09/18 08:15 physical Constitutional: Yes: No Distress, Calm Eyes: Yes: Conjunctiva Clear Neck: Yes: Supple Cardiovascular: Yes: Regular Rate and Rhythm Respiratory: Yes: CTA Bilaterally Gastrointestinal: Yes: Soft Edema: No Neurological: Yes: Alert assessment and plan Stable Discharge to [facility] today follow-up in office----after discharge from [facility]it[facility]
== END 2018-09-12 17:34 | DRG 641 ==
LOC: JER 16:30 → JERBED 19:45 → JICU 09-09 03:55 → J6S 09-09 13:58
PROVIDERS: ADMIT Internal Medicine; ATTEND Internal Medicine
DX: R62.7 Adult failure to thrive (principal); R64 Cachexia; Z68.1 Body mass index [BMI] 19.9 or less, adult; J84.9 Interstitial pulmonary disease, unspecified; E86.0 Dehydration; I95.9 Hypotension, unspecified; J44.9 Chronic obstructive pulmonary disease, unspecified; K29.50 Unspecified chronic gastritis without bleeding; N40.0 Benign prostatic hyperplasia without lower urinary tract symptoms; R13.10 Dysphagia, unspecified; R42 Dizziness and giddiness
CPT/HCPCS: 36415; 71045-TC-FY; 80048; 80053; 81003; 82550; 84484; 85025; 85610; 85730; 87086; 93005; 93010; 97116-GP; 97161-GP; 99285-25

== ENCOUNTER 2018-10-03 12:59 | Emergency (ER) | payer MEDICARE, OTHER ==
[2018-10-03 13:37] VITALS: BMI 17.6
--- NOTE | 2018-10-03 13:48 | PDOC ---
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 ROS GENERAL/CONSTITUTIONAL: No fever or chills. No weakness. HEAD, EYES, EARS, NOSE AND THROAT: No change in vision. No ear pain or discharge. No sore throat. CARDIOVASCULAR: No chest pain or shortness of breath RESPIRATORY: No cough, wheezing, or hemoptysis. GASTROINTESTINAL: No nausea, vomiting, diarrhea or constipation. GENITOURINARY: No dysuria, frequency, or change in urination. MUSCULOSKELETAL: No joint or muscle swelling or pain. No neck or back pain. SKIN: No rash NEUROLOGIC: No headache, vertigo, loss of consciousness, or change in strength/ sensation. ENDOCRINE: No increased thirst. No abnormal weight change HEMATOLOGIC/LYMPHATIC: No anemia, easy bleeding, or history of blood clots. ALLERGIC/IMMUNOLOGIC: No hives or skin allergy. PE GENERAL: Awake, alert, and fully oriented, in no acute distress HEAD: No signs of trauma, normocephalic, atraumatic EYES: PERRLA, EOMI, sclera anicteric, conjunctiva clear ENT: Auricles normal inspection, hearing grossly normal, nares patent, oropharynx clear without exudates. Moist mucosa NECK: Normal ROM, supple, no lymphadenopathy, JVD, or masses LUNGS: No distress, speaks full sentences, clear to auscultation bilaterally HEART: Regular rate and rhythm, normal S1 and S2, no murmurs, rubs or gallops, peripheral pulses normal and equal bilaterally. ABDOMEN: Soft, nontender, normoactive bowel sounds. No guarding, no rebound. No masses EXTREMITIES : Normal inspection, Normal range of motion, no edema. No clubbing or cyanosis. NEUROLOGICAL: Cranial nerves II through XII grossly intact. Normal speech, normal gait, no focal sensorimotor deficits SKIN: Warm, Dry, normal turgor, no rashes or lesions noted GENITAL: uncircumcised male, vertical lie of testes, no inguinal lymphadenopathy , nontenderness to epididymal palpation, no erythema, lesions or ulcers MDM DDX including but not limited to: W/U: - TX: - Scores: ED Course: denilson gautam performed one tempioral laceration approc 2cm - 4 5-0 sutures placed one frontal head laceration approx 2cm - 4 5-0 sutures placed Racheal Best, PGY2 Emergency Medicine 10/03/18 15:47 Past History - Past Medical History Allergies/Adverse Reactions: Allergies Allergy/AdvReac Type Severity Reaction Status Date / Time fish derived [Fish derived] Allergy Verified 10/03/18 13:30 Shellfish Allergy Verified 10/03/18 13:30 Home Medications: Ambulatory Orders Albuterol 0.083% Nebulizer Pilar [Ventolin 0.083% Nebulizer Soln -] 1 amp NEB Q6H PRN #20 amp 01/25/18 Tamsulosin HCl [Flomax -] 0.4 mg PO DAILY@0830 #30 cap.er.24h 01/25/18 Tiotropium [place] [Spiriva Respimat] 2 puff IH BID inhaler 09/11/18 Azithromycin [Zithromax [place] (3 DAYS) -] 500 mg PO DAILY #3 tablet 10/03/18 Anemia: Yes Asthma: Yes Cancer: No Cardiac Disorders: No CVA: No COPD: Yes Diabetes: No GI Disorders: Yes (gastritis) Disorders: Yes (BPH) HTN: No Hypercholesterolemia: No Seizures: No - Immunization History Immunization Up to Date: No - Suicide/Smoking/Psychosocial Hx Smoking Status: No Smoking History: Unknown if ever smoked Have you smoked in the past 12 months: No Number of Cigarettes Smoked Daily: 0 Hx Alcohol Use: No Drug/Substance Use Hx: No Substance Use Type: None *Physical Exam - Vital Signs Last Vital Signs Temp Pulse Resp BP Pulse Ox 98.6 F 100 H 16 90/59 L 100 10/03/18 13:31 10/03/18 13:31 10/03/18 13:31 10/03/18 13:31 10/03/18 13:31 Procedures - Laceration/Wound Repair Head Wound Length: to 2.5 cm Wound's Depth, Shape: superficial Irrigated w/ Saline: Yes Anesthesia: 1% Lidocaine Amount of Anesthetic (ccs): 5 Wound Repaired With: Sutures Suture Size/Type: 5:0 Number of Sutures: 8 Sterile Dressing Applied: No ED Treatment Course - LABORATORY CBC & Chemistry Diagram: 10/03/18 14:39 10/03/18 14:39 *DC/Admit/Observation/Transfer Diagnosis at time of Disposition: Fall, Laceration - Discharge Dispostion Disposition: HOME Condition at time of disposition: Stable Decision to Admit order: No - Prescriptions Prescriptions: Azithromycin [Zithromax Tri-[place] (3 DAYS) -] 500 mg PO DAILY #3 tablet - Referrals Referrals: Tate Rea MD [Primary Care Provider] - - Patient Instructions Additional Instructions: You were seen in the ED for complaints of laceration and head bleed. In the ED you were evaluated with labwork and imaging. Your results showed a small possible pneumonia. There does not appear to be an acute need for immediate hospitalization. You are advised to follow up with your Primary Care Physician within 1 week. You were given a prescription for an antibiotic for your pneumonia. You had sutures placed for your laceration. You need to come the ED or have them removed in your facility within 5-7 days. Return to the ED immediately if you experience worsening symptoms, cough, lethargy, chest pain, shortness of breath, nausea or vomiting. - Post Discharge Activity
--- NOTE | 2018-10-03 14:00 | PDOC ---
*Physical Exam - Vital Signs Last Vital Signs Temp Pulse Resp BP Pulse Ox 98.6 F 100 H 16 90/59 L 100 10/03/18 13:31 10/03/18 13:31 10/03/18 13:31 10/03/18 13:31 10/03/18 13:31 Medical Decision Making - Medical Decision Making 10/03/18 14:37 83 y/o male with a PMH of Anemia --- presents to the ED following a unwitnessed *DC/Admit/Observation/Transfer - Referrals Referrals: Tate Rea MD [Primary Care Provider] - - Patient Instructions - Post Discharge Activity
[2018-10-03] MEDS ORDERED: ACETAMINOPHEN 1000 MG/100 ML VIAL (NON FORMULARY) IVPB ONE (14:33)
[2018-10-03 15:06] LABS: BASO % 0.6 % (0-2.0); EOS % 0.2 % (0-4.5); HEMATOCRIT 42.2 % (35.4-49); HEMOGLOBIN 13.7 GM/dL (11.7-16.9); LYMPH % 4.8 % (8-40); MCH 32.1 pg (25.7-33.7); MCHC 32.5 g/dl (32.0-35.9); MEAN CELL VOLUME 98.8 fl (80-96); MEAN PLT VOLUME 8.8 fl (7.5-11.1); MONO % 3.8 % (3.8-10.2); NEUT % 90.6 % (42.8-82.8); RBC 4.27 M/mm3 (4.00-5.60); RDW 15.1 % (11.9-15.9); WHITE BLOOD COUNT 7.8 K/mm3 (4.0-10.0)
[2018-10-03] MEDS ORDERED: DIPHTH,PERTUSS(ACELL),TET 0.5 ML DISP.SYRIN IM ONE ×2 (15:19→15:34)
[2018-10-03 15:22] LABS: PLATELET COUNT 359 K/MM3 (134-434)
[2018-10-03 15:23] LABS: INR 1.1 (0.83-1.09)
[2018-10-03 15:25] LABS: ACTIVATED PTT 35.5 SECONDS (25.2-36.5)
[2018-10-03 15:27] LABS: ALBUMIN 3.1 g/dl (3.4-5.0); BILIRUBIN,TOTAL 0.4 mg/dL (0.2-1); BLOOD UREA NITROGEN 12.4 mg/dL (7-18); CREATININE 0.6 mg/dL (0.55-1.3); POTASSIUM 4.3 mmol/L (3.5-5.1); TOT PROT 7.9 g/dl (6.4-8.2)
[2018-10-03] MEDS ORDERED: ACETAMINOPHEN INJECTION 100 ML IVPB ONE (15:30)
--- NOTE | 2018-10-03 16:17 | PDOC ---
Documentation entered by Suzie Piña SCRIBE, acting as scribe for Kerrie Pablo MD. Kerrie Pablo MD: This documentation has been prepared by the Ayana hair Renju, SCRIBE, under my direction and personally reviewed by me in its entirety. I confirm that the documentation accurately reflects all work, treatment, procedures, and medical decision making performed by me. Attending Attestation - Resident Resident Name: NasirRacheal - ED Attending Attestation I have performed the following: I have examined & evaluated the patient, The case was reviewed & discussed with the resident, I agree w/resident's findings & plan, Exceptions are as noted - HPI HPI: 10/03/18 15:00 The patient is an 83 year old male with a past medical history of ILD, COPD, Cachexia, Chronic Gastritis, BPH, asthma, and [facility] who presents to the emergency department for evaluation s/p unwitnessed fall. Per EMS, patient was found with two lacerations to the left temporal. ROS limited due to clinical condition. - Physicial Exam PE: 10/03/18 15:02 GENERAL: (+)Cachetic. Awake. answers to [place], does not follow commands HEAD: (+)two 2-3cm lacerations on left side of head. no midline cervical spine tenderness EYES: PERRLA, EOMI, sclera anicteric, conjunctiva clear. ENT: Ears normal, nares patent, oropharynx clear without exudates. Moist mucous membranes. No facial deformities, no blood at oropharynx NECK: Normal range of motion, supple without midline tenderness LUNGS: Breath sounds equal, clear to auscultation bilaterally. No wheezes, and no crackles. HEART:Regular rate and rhythm, normal S1 and S2 without murmur, rub or gallop. ABDOMEN: Soft, nontender. No guarding, no rebound. No masses palpable. EXTREMITIES: Moves lower extremities, overall weak. NEUROLOGICAL: Cranial nerves II through XII grossly intact. No focal neurological deficits. MUSCULOSKELETAL: No midline cervical spine tenderness. Back non-tender to palpation SKIN: Laceration as described above 10/04/18 08:13 - Medical Decision Making 10/03/18 16:15 83 yo M resident of a [facility] presenting s/p fall with head trauma and lacerations Will do: CT head and c spine Labs EKG Suture Repair ? Boostrix 10/03/18 16:16 Laboratory Tests 10/03/18 10/03/18 10/03/18 14:39 14:39 14:39 WBC 7.8 Hgb 13.7 Hct 42.2 D Plt Count 359 D INR 1.10 H BUN 12.4 Creatinine 0.6 Initial BP low 10/03/18 17:57 CT head - left frontal scalp hematoma 10/03/18 17:58 CT chest - increased right basilar opacity which may be the basis of small focal infiltrates less likely neoplastic Can discharge to home 10/03/18 18:00 Suture removal 7 days Fall risk, pt should be observe
[2018-10-03 18:46] VITALS: BP 114/67; PULSE 80; TEMP 97.4
== END 2018-10-03 22:08 ==
LOC: JER 12:59
PROC: 3E033NZ Introduction of Analgesics, Hypnotics, Sedatives into Peripheral Vein, Percutaneous Approach (ICD-10-PCS; principal; 2018-10-03)
PROC: 3E0234Z Introduction of Serum, Toxoid and Vaccine into Muscle, Percutaneous Approach (ICD-10-PCS; 2018-10-03)
PROC: 0HQ1XZZ Repair Face Skin, External Approach (ICD-10-PCS; 2018-10-03)
DX: S01.81XA Laceration without foreign body of other part of head, initial encounter (principal); W18.30XA Fall on same level, unspecified, initial encounter; Y93.89 Activity, other specified; Y92.121 Bathroom in nursing home as the place of occurrence of the external cause; Y99.8 Other external cause status; J84.10 Pulmonary fibrosis, unspecified; J44.9 Chronic obstructive pulmonary disease, unspecified; J45.909 Unspecified asthma, uncomplicated; N40.0 Benign prostatic hyperplasia without lower urinary tract symptoms
CPT/HCPCS: 12013; 36415; 70450-TC; 71250-TC; 72125-TC; 74176-TC; 80053; 85025; 85610; 85730; 86850; 86870; 86900; 86901; 86902; 90471; 90715; 96374; 99283-25; J0131